=== PATIENT | female | born 1945 | race Caucasian/White ===

== ENCOUNTER → 2017-01-04 | Outpatient (CLI) | payer MEDICARE ==
--- NOTE | 2017-01-05 10:33 | MM ---
Reason for exam: screening (asymptomatic). Last mammogram was performed 1 year and 1 month ago. History: Patient is postmenopausal and is nulliparous. Family history of breast cancer in grandmother. Physical Findings: A clinical breast exam by your physician is recommended on an annual basis and results should be correlated with mammographic findings. MG Screening Mammo w CAD Bilateral CC and MLO view(s) were taken. Prior study comparison: November 27, 2015, bilateral MG screening mammo w CAD. January 03, 2014, bilateral digital screening mammo w/CAD. There are scattered fibroglandular densities. There is no discrete abnormality. ASSESSMENT: Negative, BI-RAD 1 RECOMMENDATION: Routine screening mammogram of both breasts in 1 year.
== END | disposition home or self-care (01) ==
LOC: RADMAMWWP 14:09
PROVIDERS: ATTEND Internal Medicine
DX: Z12.31 Encounter for screening mammogram for malignant neoplasm of breast (principal)

== ENCOUNTER → 2018-02-16 | Outpatient (CLI) | payer MEDICARE ==
--- NOTE | 2018-02-16 20:00 | ECHOF ---
Referral Reason:R01.1 murmur cardiac MEASUREMENTS -------- HEIGHT: 685.8 cm WEIGHT: 29.9 kg BP: IVSd: 0.9 cm (0.6 - 1.1) LVIDd: 4.5 cm (3.9 - 5.3) LVPWd: 1.1 cm (0.6 - 1.1) IVSs: 1.4 cm LVIDs: 2.8 cm LVPWs: 1.7 cm Ao Diam: 2.9 cm (2.0 - 3.7) AV Cusp: 2.1 cm (1.5 - 2.6) LA Diam: 3.9 cm (2.7 - 3.8) MV EXCURSION: 23.232 mm (> 18.000) MV EF SLOPE: 153 mm/s (70 - 150) EPSS: 0.7 cm MV E Andreas: 0.80 m/s MV DecT: 169 ms MV A Andreas: 0.74 m/s MV E/A Ratio: 1.08 AV maxP.30 mmHg AV meanP.41 mmHg RAP: 5.00 mmHg RVSP: 20.59 mmHg FINDINGS -------- Sinus rhythm. This was a technically difficult study with suboptimal views. The left ventricular size is normal. Left ventricular wall thickness is normal. Overall left vent ricular systolic function is normal with, an EF between 55 - 60 %. The right ventricle is normal in size and function. The left atrium is normal in size. The right atrium is normal in size. Aortic valve is trileaflet and is mildly thickened. The mitral valve leaflets are mildly thickened. There is trace mitral regurgitation. Mild tricuspid regurgitation present. There is no evidence of pulmonary hypertension. The right v entricular systolic pressure, as measured by Doppler, is 20.59mmHg. There is no pulmonic regurgitation present. The aortic root size is normal. Normal inferior vena cava with normal inspiratory collapse consistent with estimated right atrial pre ssure of 5 mmHg. There is no pericardial effusion. CONCLUSIONS -------- 1. Sinus rhythm. 2. This was a technically difficult study with suboptimal views. 3. The left ventricular size is normal. 4. Left ventricular wall thickness is normal. 5. Overall left ventricular systolic function is normal with, an EF between 55 - 60 %. 6. The left atrium is normal in size. 7. Aortic valve is trileaflet and is mildly thickened. 8. The mitral valve leaflets are mildly thickened. 9. There is trace mitral regurgitation. 10. Mild tricuspid regurgitation present. 11. There is no evidence of pulmonary hypertension. 12. There is no pulmonic regurgitation present. 13. The aortic root size is normal. 14. Normal inferior vena cava with normal inspiratory collapse consistent with estimated right atrial pressure of 5 mmHg. 15. There is no pericardial effusion. [employer] CON[employer]CT [employer]ENS: Patrica Black RDCS
== END | disposition home or self-care (01) ==
LOC: RADECHMAIN 11:21
PROVIDERS: ATTEND Internal Medicine
DX: I08.3 Combined rheumatic disorders of mitral, aortic and tricuspid valves (principal)
CPT/HCPCS: 93306

== ENCOUNTER 2019-02-05 16:10 | Inpatient (IN) | payer MEDICARE ==
--- NOTE | 2019-02-05 16:22 | ED ---
General Adult HPI - General Stated complaint: fall Time Seen by Provider: 02/05/19 16:12 Source: patient, EMS Mode of arrival: EMS Limitations: no limitations - History of Present Illness Initial comments: Dictation was produced using [employer] dictation software. please excuse any grammatical, word or spelling errors. Chief Complaint: 74-year-old female presents with left knee pain History of Present Illness: Patient is 74-year-old female she presents with left knee pain. At approximately 1 PM patient fell. She fell forward. She states she did hit her head. She called for her family members however nobody had enough strength to pick her up off the ground. EMS was called for lift assist. While patient was sitting in the chair she noted that her pain in her left knee began increasing. She has history of bilateral total knee replacements performed in 2008 at [facility]. Patient denies any headache or neck pain. Patient denies any other symptoms except the left knee pain. Denies any numbness and paresthesias. Patient states she was barely able to bear any weight on her left leg. The ROS documented in this emergency department record has been reviewed and confirmed by me. Those systems with pertinent positive or negative responses have been documented in the HPI. All other systems are other negative and/or noncontributory. PHYSICAL EXAM: General Impression: Alert and oriented x3, not in acute distress HEENT: Normocephalic atraumatic, extra-ocular movements intact, pupils equal and reactive to light bilaterally, mucous membranes moist. Cardiovascular: Heart regular rate and rhythm, S1&S2 audible, no murmurs, rubs or gallops Chest: Lungs clear to auscultation bilaterally, no rhonchi, no wheeze, no rales Abdomen: Bowel sounds present, abdomen soft, non-tender, non-distended, no organomegaly Musculoskeletal: Pulses present and equal in all extremities, no peripheral edema, slight ecchymoses over the left anterior knee Motor: no focal deficits noted Neurological: CN II-XII grossly intact, no focal motor or sensory deficits noted Skin: Intact with no visualized rashes Psych: Normal affect and mood ED course: 74-year-old female presents with left knee pain after fall. Patient states she did strike her head. Denies any LOC. Patient reports that the fall was mechanical. She states she slipped. Denies any blood thinners. Vital signs upon arrival are within acceptable limits. Laboratory evaluation obtained showing no acute processes. CT of the brain and lateral knee x-rays was obtained. CT is nonacute. Knee x-rays do not show any periprosthetic fractures. There is left-sided knee joint effusion. Patient given analgesia. Patient was assisted and attempted to walk over really able to bear any weight. Patient states she is not able to get into her house secondary to multiple steps to get to inside of her house. She does not have any other family member or friend to stay with. Patient will be admitted with orthopedic consultation. EKG interpretation: Ventricular rate 82, sinus rhythm,. Interval T12, QS 80, QTc 475. No LA prolongation, no QTC prolongation, no ST or T-wave changes noted. Overall, this EKG is unremarkable. - Related Data Allergies Allergy/AdvReac Type Severity Reaction Status Date / Time Penicillins Allergy Rash/Hives Verified 02/05/19 17:13 Review of Systems ROS Statement: Those systems with pertinent positive or pertinent negative responses have been documented in the HPI. ROS Other: All systems not noted in ROS Statement are negative. Past Medical History Past Medical History: GERD/Reflux, GI Bleed, Hypertension, Rheumatoid Arthritis (RA) History of Any Multi-Drug Resistant Organisms: None Reported Past Surgical History: Joint Replacement Additional Past Surgical History / Comment(s): viola knee Past Psychological History: No Psychological Hx Reported Smoking Status: Never smoker Past Alcohol Use History: None Reported Past Drug Use History: None Reported General Exam Limitations: no limitations Course Vital Signs 02/05/19 16:12 Temperature 97.0 F L Pulse Rate 84 Respiratory 16 Rate Blood Pressure 160/109 O2 Sat by Pulse 96 Oximetry Medical Decision Making - Lab Data Result diagrams: 02/05/19 16:30 02/05/19 16:30 Lab Results 02/05/19 02/05/19 02/05/19 Range/Units 16:30 16:30 16:30 WBC 9.5 (3.8-10.6) k/uL RBC 4.53 (3.80-5.40) m/uL Hgb 13.1 (11.4-16.0) gm/dL Hct 40.5 (34.0-46.0) % MCV 89.5 (80.0-100.0) fL MCH 29.0 (25.0-35.0) pg MCHC 32.4 (31.0-37.0) g/dL RDW 13.6 (11.5-15.5) % Plt Count 236 (150-450) k/uL Neutrophils % 72 % Lymphocytes % 17 % Monocytes % 7 % Eosinophils % 2 % Basophils % 1 % Neutrophils # 6.8 (1.3-7.7) k/uL Lymphocytes # 1.6 (1.0-4.8) k/uL Monocytes # 0.7 (0-1.0) k/uL Eosinophils # 0.2 (0-0.7) k/uL Basophils # 0.1 (0-0.2) k/uL PT 10.2 (9.0-12.0) sec INR 0.9 (<1.2) Sodium 141 (137-145) mmol/L Potassium 4.2 (3.5-5.1) mmol/L Chloride 105 (98-107) mmol/L Carbon Dioxide 29 (22-30) mmol/L Anion Gap 7 mmol/L BUN 18 H (7-17) mg/dL Creatinine 0.57 (0.52-1.04) mg/dL Est GFR (CKD-EPI)AfAm >90 (>60 ml/min/1.73 sqM) Est GFR (CKD-EPI)NonAf >90 (>60 ml/min/1.73 sqM) Glucose 102 H (74-99) mg/dL Calcium 9.7 (8.4-10.2) mg/dL Disposition Clinical Impression: Knee pain Disposition: ADMITTED IP TO THIS [facility] Condition: Good Referrals: Yajaira Frost MD [Primary Care Provider] - 1-2 days Decision Time: 17:49
[2019-02-05 16:53] LABS: Basophils # (A) 0.1 k/uL (0-0.2); Basophils % (A) 1 %; Eosinophils # (A) 0.2 k/uL (0-0.7); Eosinophils % (A) 2 %; HCT 40.5 % (34.0-46.0); HGB 13.1 gm/dL (11.4-16.0); Lymphocytes # (A) 1.6 k/uL (1.0-4.8); Lymphocytes % (A) 17 %; MCHC 32.4 g/dL (31.0-37.0); MCV 89.5 fL (80.0-100.0); Mean Platelet Volume 7.7; Monocytes # (A) 0.7 k/uL (0-1.0); Monocytes % (A) 7 %; Neutrophils # (A) 6.8 k/uL (1.3-7.7); Neutrophils % (A) 72 %; Platelet Count 236 k/uL (150-450); RBC 4.53 m/uL (3.80-5.40); RDW 13.6 % (11.5-15.5); WBC 9.5 k/uL (3.8-10.6)
[2019-02-05 16:55] LABS: Anion Gap 7 mmol/L; Blood Urea Nitrogen 18 mg/dL (7-17); Calcium 9.7 mg/dL (8.4-10.2); Carbon Dioxide 29 mmol/L (22-30); Chloride 105 mmol/L (98-107); Glucose 102 mg/dL (74-99); Potassium 4.2 mmol/L (3.5-5.1); Sodium 141 mmol/L (137-145)
[2019-02-05 17:03] LABS: INR 0.9 (<1.2); Prothrombin Time 10.2 sec (9.0-12.0)
--- NOTE | 2019-02-05 17:19 | CT ---
EXAMINATION TYPE: CT brain wo con DATE OF EXAM: 02/05/2019 COMPARISON: None HISTORY: Fall today with Right sided injury CT DLP: 1099.4 mGycm Automated exposure control for dose reduction was used. FINDINGS: There is some cerebral cortical atrophy. There is no mass effect nor midline shift. There is no sign of intracranial hemorrhage. The calvarium is intact. IMPRESSION: MILD ATROPHY. NO ACUTE INTRACRANIAL ABNORMALITY. RIGHT PARIETAL SCALP HEMATOMA NOTED.
--- NOTE | 2019-02-05 17:21 | XR ---
EXAMINATION TYPE: XR knee complete bilateral DATE OF EXAM: 02/05/2019 COMPARISON: NONE HISTORY: Knee pain TECHNIQUE: 3 views each knee FINDINGS: There are bilateral knee prosthesis. I see no fracture nor dislocation. Components appear i n anatomic position. There is left-sided knee joint effusion. IMPRESSION: Left-sided knee joint effusion. No fracture seen in both knees. Atherosclerotic vascular disease.
[2019-02-05] MEDS ORDERED: KETOROLAC 30 MG/ML 1 ML VIAL IVP STA (17:34)
[2019-02-05] MEDS ORDERED: ONDANSETRON 4 MG/2 ML VIAL IVP PRN (17:49)
[2019-02-05] MEDS ORDERED: NALOXONE 0.4 MG/ML 1 ML VIAL IV PRN (17:49)
[2019-02-05] MEDS ORDERED: HYDROcodone/APAP 5-325MG 1 EACH TAB PO PRN (18:49)
[2019-02-05] MEDS ORDERED: ALPRAZolam 0.25 MG TAB PO PRN (18:49)
[2019-02-05] MEDS ORDERED: HYDROmorphone 0.5 MG/0.5 ML SYRINGE IVP PRN (18:49)
--- NOTE | 2019-02-05 19:46 | XR ---
EXAMINATION TYPE: XR chest 1V portable DATE OF EXAM: 02/05/2019 COMPARISON: NONE HISTORY: CHF TECHNIQUE: Single frontal view of the chest is obtained. FINDINGS: There is no heart failure nor confluent pneumonic infiltrate. Costophrenic angles are ac r. IMPRESSION: No active cardiopulmonary disease.
--- NOTE | 2019-02-05 19:56 | HP ---
HISTORY AND PHYSICAL CHIEF COMPLAINT: Fall and left knee pain. HISTORY OF PRESENT ILLNESS: This 74-year-old woman with a past medical history of GERD, GI bleed, hypertension, rheumatoid arthritis, being followed by Dr. Frost in the outpatient setting had a fall. The patient trampled upon the carpet at home and the patient had a head injury also. The patient hit over the head. Hematoma is there. The patient also has significant left knee swelling and pain on movement also. X-ray showed possible effusion. Patient admitted to the hospital for further evaluation and treatment. Patient lives in an apartment with several steps apparently. There is no history of fever, rigors, or chills. No history of headache, loss of consciousness, seizures. PAST MEDICAL HISTORY: GERD, GI bleed, hypertension and rheumatoid arthritis. MEDICATIONS ARE: 1. Enalapril. 3. Tylenol p.r.n. ALLERGIES: PENICILLIN. FAMILY HISTORY: No history of heart disease or strokes in the family. SOCIAL HISTORY: No history of smoking, no history of alcohol. REVIEW OF SYSTEMS: ENT: No diminished vision. Otherwise as mentioned earlier. CARDIOVASCULAR: No angina. RESPIRATIONS: No cough. GI no nausea or vomiting. : No dysuria. ALLERGY/IMMUNOLOGY: No asthma, hayfever. MUSCULOSKELETAL: As mentioned earlier. HEMATOLOGY/ONCOLOGY: No history of anemia. ENDOCRINE: No history of diabetes or hypothyroidism. CONSTITUTIONAL: As mentioned earlier. DERMATOLOGY: Negative. RHEUMATOLOGY: Negative. PSYCHIATRY: As mentioned earlier. PHYSICAL EXAMINATION: GENERAL: Alert and oriented x3. VITAL SIGNS: Pulse is 78, blood pressure is 140/92, respiratory rate 18, temp 97 degrees, pulse ox 97% on room air. HEENT: Conjunctivae normal. NECK: No jugular venous distention. CARDIOVASCULAR: S1, S2 muffled. RESPIRATION: Breath sounds diminished in the bases. A few scattered rhonchi. No crackles. ABDOMEN: Soft, obese, nontender. LEGS: Significant pain and swelling on the left. Movements severely limited. Examination of the right head, right scalp hematoma present. Multiple excoriations also present. SKIN: Mentioned earlier. JOINTS: As mentioned earlier. NERVOUS SYSTEM: Diffusely weak. LAB: CBC within normal, sodium 140, potassium 4.2. ASSESSMENT: 1. Fall and left knee pain, with knee effusion, rule out fracture. 2. Gait dysfunction severe. 3. Right hematoma from the hematoma. 4. Gastrointestinal bleed. 5. Hypertension. 6. Rheumatoid arthritis. 7. Gastroesophageal reflux disease. 8. Super morbid obesity with 43.6 BMI. 9. History of bilateral knee joint replacements. RECOMMENDATIONS AND DISCUSSION: This 74-year-old woman who presented with multiple complex medical issues, we will monitor the patient closely, continue the current medications, management and recommend symptomatic treatment. Orthopedic evaluation. PT/OT evaluation, possible ECF rehab. The patient is extremely obese and has significant difficulty walking with a past medical history of knee replacements and the possibility of prosthetic fraction is ruled out. We will continue to monitor. Overall prognosis guarded. See orders for details. Further recommendations to follow. Discussed with the patient who understands and agrees. A copy of dictation being forwarded to Dr. Frost, who is the primary physician. MMNEO / RANDY: [id number] / MTDD
[2019-02-05 20:05] VITALS: BMI 43.5
[2019-02-05] MEDS: SODIUM CHLORIDE 0.9% 1,000 ML IV SCH (20:51)
[2019-02-05] MEDS: HEPARIN SODIUM,PORCINE 5,000 UNIT/ML 1 ML VIAL SQ SCH (20:57)
[2019-02-05 20:58] LABS: Appearance,Urine Clear (Clear); Bilirubin,Urine Negative (Negative); Blood,Urine Negative (Negative); Color,Urine Yellow; Glucose,Urine (UA) Negative (Negative); Ketones,Urine Negative (Negative); Leukocyte Esterase,Urine Negative (Negative); Nitrite,Urine Negative (Negative); Protein,Urine Negative (Negative); Specific Gravity,Urine 1.016 (1.001-1.035); Urobilinogen,Urine <2.0 mg/dL (<2.0)
[2019-02-05] MEDS: KETOROLAC 30 MG/ML 1 ML VIAL IVP PRN (22:32)
[2019-02-06] MEDS: LISINOPRIL 20 MG TAB PO SCH (08:19)
[2019-02-06] MEDS: HYDROCHLOROTHIAZIDE 25 MG TAB PO SCH (08:19)
[2019-02-06] MEDS: SODIUM CHLORIDE 0.9% 1,000 ML IV SCH (08:20)
[2019-02-06] MEDS: KETOROLAC 30 MG/ML 1 ML VIAL IVP PRN ×3 (08:20→22:21)
[2019-02-06] MEDS: HEPARIN SODIUM,PORCINE 5,000 UNIT/ML 1 ML VIAL SQ SCH ×2 (08:20→21:11)
[2019-02-06 09:54] LABS: Basophils # (A) 0.1 k/uL (0-0.2); Basophils % (A) 1 %; Eosinophils # (A) 0.2 k/uL (0-0.7); Eosinophils % (A) 3 %; HCT 37.6 % (34.0-46.0); HGB 12.1 gm/dL (11.4-16.0); Lymphocytes # (A) 1.4 k/uL (1.0-4.8); Lymphocytes % (A) 22 %; MCH 28.7 pg (25.0-35.0); MCHC 32.2 g/dL (31.0-37.0); MCV 89.2 fL (80.0-100.0); Mean Platelet Volume 7.8; Monocytes # (A) 0.6 k/uL (0-1.0); Monocytes % (A) 10 %; Neutrophils % (A) 63 %; Platelet Count 220 k/uL (150-450); RBC 4.22 m/uL (3.80-5.40); RDW 14.4 % (11.5-15.5); WBC 6.3 k/uL (3.8-10.6)
[2019-02-06 10:27] LABS: Anion Gap 7 mmol/L; Blood Urea Nitrogen 18 mg/dL (7-17); Calcium 9.4 mg/dL (8.4-10.2); Carbon Dioxide 30 mmol/L (22-30); Chloride 105 mmol/L (98-107); Glucose 94 mg/dL (74-99); Potassium 3.9 mmol/L (3.5-5.1); Sodium 142 mmol/L (137-145)
--- NOTE | 2019-02-06 10:45 | CT ---
EXAMINATION TYPE: CT knee LT wo con DATE OF EXAM: 02/06/2019 COMPARISON: X-ray 02/05/2019 HISTORY: Lt knee pain following fall CT DLP: 173 mGycm Automated exposure control for dose reduction was used. FINDINGS: Severe metallic artifact results virtually nondiagnostic exam. There does appear to be a suprapatella r bursal fluid collection. Vascular calcifications are seen and there is soft tissue edema anteriorly . Visualized portions of the osseous structures outside the field of artifact from the prostheses kamini ear intact. IMPRESSION: VIRTUALLY NONDIAGNOSTIC EXAM SECONDARY TO SEVERE METALLIC ARTIFACT. THERE IS A SUPRAPATELLAR BURSAL F LUID COLLECTION AND SOFT TISSUE EDEMA.
--- NOTE | 2019-02-06 11:40 | PN ---
PROGRESS NOTE DATE OF SERVICE: 02/06/2019 This 74-year-old woman was admitted after a fall and left knee pain also had enough left knee effusion. The patient will be closely monitored. Orthopedics recommending a knee CAT scan. No chest pain. No palpitations. No fever. The knee CAT scan showed nondiagnostic exam secondary to severe metallic artifact, suprapatellar bursal fluid collection was noted. PHYSICAL EXAM: Alert and oriented x3. Pulse 91, blood pressure 130/70, respiration 18, temperature 97.2, pulse ox 97% on room air. HEENT: Conjunctivae normal. NECK: No jugular venous distension. CARDIOVASCULAR SYSTEM: S1, S2, muffled. RESPIRATION: Breath sounds diminished at the bases, no rhonchi, no crackles. ABDOMEN: Soft. LEGS: Status post left knee effusion and tenderness. NERVOUS SYSTEM: No focal deficits. Gait dysfunction present. LAB STUDIES: WBC is 6.8, hemoglobin is 12.1. ASSESSMENT: 1. Fall and left knee pain with a knee effusion, rule out fracture. 2. Rule out prosthetic fracture. 3. Gait dysfunction, severe. 4. Right scalp hematoma from fall. 5. History of gastrointestinal bleed. 6. Hypertension. 7. Rheumatoid arthritis. 8. Gastroesophageal reflux disease. 9. Gastrointestinal bleed. 10.Morbid obesity with 43.6 body mass index. 11.History of bilateral knee joint replacements and degenerative joint disease. RECOMMENDATION: Recommend to continue current management and symptomatic treatment; otherwise, at this time I recommend to follow closely with Orthopedic Surgery. Otherwise, will continue to monitor. PT, OT evaluation and the patient might need ECF rehab. The patient is unable to negotiate steps at home and the patient is also complaining of severe pain and gait dysfunction. Patient is unable to move and bend the knees currently and continue to monitor. Orthopedic recommendations being sought at this time. Guarded prognosis. Further recommendations to follow. MMODL / IJN: [id number] /
--- NOTE | 2019-02-06 15:22 | P.CNOR ---
History of Present Illness - [facility] Consult date: 02/06/19 History of present illness: This patient is a 74- year old female with a past medical history of bilateral total knee arthoplasty by a surgeon in [place] in 2005, hypertension, GERD, and rheumatoid arthritis that presents to [facility] ED yesterday 02/05/19 after a fall at home. The patients states it was a mechanical fall, that she tripped over her slipper. The patient states she landed onto her left knee and experienced immediate pain, and was unable to get off the ground. Her family tried to assist her, although they were unable to lift her off the ground, therefore they called EMS. The patient was unable to bear weight on the left lower extremity in the ED due to pain, therefore she was admitted to internal medicine with a consult placed to orthopedics for evaluation of the patient's left knee. At the time of my exam, the patient states that her knee feels better than it did yesterday, she states she worked with therapy this morning and was able to place a small amount of weight on the knee without pain. She states prior to her fall, she had no issues with her knee replacements. She ambulates with a cane at baseline. She denies pain or injury to any other area of the body. Patient denies additional complaints or concerns. Patient also seen by Dr. Galvez. Past Medical History Past Medical History: GERD/Reflux, GI Bleed, Hypertension, Rheumatoid Arthritis (RA) History of Any Multi-Drug Resistant Organisms: None Reported Past Surgical History: Joint Replacement Additional Past Surgical History / Comment(s): viola knee, cataract sx with lens, bleeding ulcer sx Past Anesthesia/Blood Transfusion Reactions: No Reported Reaction Past Psychological History: No Psychological Hx Reported Smoking Status: Never smoker Past Alcohol Use History: None Reported Past Drug Use History: None Reported - Past Family History Mother Additional Family Medical History / Comment(s): a. fib, hip replaced Medications and Allergies Home Medications Medication Instructions Recorded Confirmed Type Acetaminophen Tab [Tylenol Tab] 500 - 1,000 mg PO Q4H PRN 02/05/19 02/05/19 History Enalapril/Hydrochlorothiazide 1 tab PO DAILY 02/05/19 02/05/19 History [Enalapril-Hctz 10-25 mg Tablet] Allergies Allergy/AdvReac Type Severity Reaction Status Date / Time Penicillins Allergy Rash/Hives Verified 02/05/19 17:13 Physical Examination On examination, the patient is sitting up in bed in no acute distress. She is alert and orientated x3. Her breathing appears non-labored. Small laceration noted to the patient's chin, otherwise her head appears normocephalic and atraumatic. On inspection of the patient's left knee, there is a healed incision over the anterior knee. There is moderate swelling of the knee. There is no erythema, warmth, open wounds, or lacerations. There is tenderness to palpation of the anterior and medial knee. Patient is able to perform a straight leg raise. There is pain with flexion of the knee. There is no pain with log roll. The left lower extremity is warm and well-perfused, with brisk capillary refill distally. Neurovascular is intact of the left lower extremity. The left calf is soft and nontender. Results CT scan left knee 02/06/19: No acute fracture or dislocations, components appear in anatomic position. Left knee x-ray 02/05/19: No acute fracture or dislocations, components appear in anatomic position. - Labs Labs: Abnormal Lab Results - Last 24 Hours (Table) 02/05/19 Range/Units 16:30 BUN 18 H (7-17) mg/dL Glucose 102 H (74-99) mg/dL H & H 02/05/19 Range/Units 16:30 Hgb 13.1 (11.4-16.0) gm/dL Hct 40.5 (34.0-46.0) % Coagulation 02/05/19 Range/Units 16:30 INR 0.9 (<1.2) Result Diagrams: 02/06/19 09:12 02/06/19 09:12 Assessment and Plan Assessment: Left knee pain s/p fall at home Plan: - There is no surgical intervention planned at this time. I explained to the patient that her implants are in anatomic position and there are no acute fractures seen on x-ray or CT scan of her knee. I recommended we observe her knee pain at this time. - I recommended she continue with physical therapy for gait and balance training. - Ice and elevation of the left knee for swelling and pain control. - Pain management per primary team. - If the patient's pain continues, I recommended she follow-up with Dr. Jose Heithoff on an outpatient basis. - We will continue to make recommendations as needed. Patient discussed with Dr. Galvez.
[2019-02-07] MEDS: SODIUM CHLORIDE 0.9% 1,000 ML IV SCH ×2 (00:27→14:04)
[2019-02-07] MEDS: ACETAMINOPHEN TAB 500 MG TAB PO PRN ×2 (04:56→21:51)
[2019-02-07] MEDS: KETOROLAC 30 MG/ML 1 ML VIAL IVP PRN ×3 (06:06→21:54)
[2019-02-07] MEDS: LISINOPRIL 20 MG TAB PO SCH (09:31)
[2019-02-07] MEDS: HYDROCHLOROTHIAZIDE 25 MG TAB PO SCH (09:32)
[2019-02-07] MEDS: HEPARIN SODIUM,PORCINE 5,000 UNIT/ML 1 ML VIAL SQ SCH ×2 (09:32→21:51)
[2019-02-07 09:40] LABS: Basophils % (A) 1 %; Eosinophils # (A) 0.3 k/uL (0-0.7); Eosinophils % (A) 4 %; Lymphocytes # (A) 1.4 k/uL (1.0-4.8); Lymphocytes % (A) 20 %; MCH 28.7 pg (25.0-35.0); MCHC 31.7 g/dL (31.0-37.0); MCV 90.5 fL (80.0-100.0); Mean Platelet Volume 7.9; Monocytes # (A) 0.4 k/uL (0-1.0); Monocytes % (A) 6 %; Neutrophils # (A) 4.9 k/uL (1.3-7.7); Neutrophils % (A) 69 %; Platelet Count 214 k/uL (150-450); RDW 13.5 % (11.5-15.5); WBC 7.2 k/uL (3.8-10.6)
[2019-02-07 09:48] LABS: Anion Gap 7 mmol/L; Blood Urea Nitrogen 24 mg/dL (7-17); Calcium 9.2 mg/dL (8.4-10.2); Carbon Dioxide 27 mmol/L (22-30); Chloride 108 mmol/L (98-107); Glucose 128 mg/dL (74-99); Potassium 4.1 mmol/L (3.5-5.1); Sodium 142 mmol/L (137-145)
--- NOTE | 2019-02-07 12:05 | P.PN ---
Subjective Progress Note Date: 02/07/19 This patient is a 74- year old female with a past medical history of bilateral total knee arthoplasty by a surgeon in [place] in 2005, hypertension, GERD, and rheumatoid arthritis that presents to [facility] ED yesterday 02/05/19 after a fall at home. The patients states it was a mechanical fall, that she tripped over her slipper. The patient states she landed onto her left knee and experienced immediate pain, and was unable to get off the ground. Her family tried to assist her, although they were unable to lift her off the ground, therefore they called EMS. The patient was unable to bear weight on the left lower extremity in the ED due to pain, therefore she was admitted to internal medicine with a consult placed to orthopedics for evaluation of the patient's left knee. At the time of my exam, the patient states that her knee feels better than it did yesterday, she states she worked with therapy this morning and was able to place a small amount of weight on the knee without pain. She states prior to her fall, she had no issues with her knee replacements. She ambulates with a cane at baseline. She denies pain or injury to any other area of the body. Patient denies additional complaints or concerns. Patient also seen by Dr. Galvez. 02/07/19: Patient states her knee pain has improved since yesterday. She has been able to bear weight today and is able to flex and extend the knee without pain. The patient denies additional complaints at the time of my exam. Objective - Vital Signs Vital signs: Vital Signs Temp 98.2 F 02/07/19 07:30 Pulse 64 02/07/19 07:30 Resp 16 02/07/19 07:30 BP 104/69 02/07/19 07:30 Pulse Ox 98 02/07/19 07:30 Intake & Output 02/06/19 02/07/19 02/07/19 18:59 06:59 18:59 Other: Voiding Method Bedpan Bedpan Bedpan # Voids 4 2 # Bowel Movements 1 - Exam On examination, the patient is sitting up in the chair in no apparent distress. She is alert and orientated x3. Small laceration noted to the patient's chin, otherwise her head appears normocephalic and atraumatic. On inspection of the patient's left knee, there is a healed incision over the anterior knee. There is moderate swelling of the knee. There is no erythema, warmth, open wounds, or lacerations. There is mild tenderness to palpation of the medial knee. Patient is able to perform a straight leg raise. There is no pain with PROM of the knee. There is no pain with log roll. The left lower extremity is warm and well- perfused, with brisk capillary refill distally. Neurovascular is intact of the left lower extremity. The left calf is soft and nontender. - Labs CBC & Chem 7: 02/07/19 08:30 02/07/19 08:30 Labs: Abnormal Lab Results - Last 24 Hours (Table) 02/07/19 Range/Units 08:30 Chloride 108 H (98-107) mmol/L BUN 24 H (7-17) mg/dL Glucose 128 H (74-99) mg/dL Assessment and Plan Assessment: Left knee pain s/p fall at home Plan: - There is no surgical intervention planned at this time. I explained to the patient that her implants are in anatomic position and there are no acute fractures seen on x-ray or CT scan of her knee. I recommended we observe her knee pain at this time. - I recommended she continue with physical therapy for gait and balance training. - Ice and elevation of the left knee for swelling and pain control. - Pain management per primary team. - If the patient's pain continues, I recommended she follow-up with Dr. Jose Patel on an outpatient basis. - Orthopedics will be signing off this patient. We will continue to make recommendations as needed. Patient discussed with Dr. Galvez.
--- NOTE | 2019-02-07 20:16 | PN ---
PROGRESS NOTE DATE OF SERVICE: 02/07/2019 This 74-year-old woman was admitted with a significant fall and left knee pain. She is still unable to walk without any support. The patient has significant pain at this time. Orthopedics is evaluating the patient. Fracture is unlikely, according to them. PT/OT is evaluating the patient for possible ECF rehab at this time. No chest pain. No palpitations. Patient has super morbid obesity with a BMI of 43.6. PHYSICAL EXAMINATION: Alert and oriented x3. Pulse is 84, blood pressure 122/70, respiration 18, temperature 96.8, pulse ox 97% on room air. HEENT: Conjunctivae normal. Oral mucosa moist. NECK: No jugular venous distention. No carotid bruit. No lymph node enlargement. CARDIOVASCULAR SYSTEM: S1, S2 muffled. RESPIRATORY SYSTEM: Breath sounds diminished at the bases. A few scattered rhonchi and crackles. ABDOMEN: Soft, non-tender. LEGS: Significant pain and swelling of the left knee present. Minimal effusion also present. Movements are severely limited and painful. NERVOUS SYSTEM: Higher functions as mentioned earlier. Moves all 4 limbs. No focal motor or sensory deficit. LYMPHATICS: No lymph node palpable in neck, axillae or groin. JOINTS: No active deforming arthropathy. LABS: WBC 7.2, hemoglobin 12, and sodium 142, potassium 4.2. ASSESSMENT: 1. Fall and left knee pain with knee effusion with possible contusion. Fracture dislocation unlikely per Orthopedics. 2. Gait dysfunction, severe. 3. Right scalp hematoma from fall. 4. History of gastrointestinal bleed. 5. Hypertension. 6. Gait dysfunction. 7. Rheumatoid arthritis. 8. gastroesophageal reflux disease. 9. History of gastrointestinal bleed. 10.History of morbid obesity with 43.6 body mass index. 11.History of bilateral knee joint replacements and degenerative joint disease. 12.FULL CODE. RECOMMENDATIONS AND DISCUSSION: In this 74-year-old woman who presented with multiple complex medical issues, we will monitor the patient closely, continue the current management, continue with symptomatic treatment. Continue the pain management. PT/OT evaluation, possible ECF rehab. Continue the rest of medical treatment. Prognosis is extremely guarded because of multiple complex medical issues. Further recommendations to follow. MMODL / IJN: [id number] /
[2019-02-08] MEDS: SODIUM CHLORIDE 0.9% 1,000 ML IV SCH ×2 (02:58→13:07)
[2019-02-08] MEDS: LISINOPRIL 20 MG TAB PO SCH (07:24)
[2019-02-08] MEDS: HYDROCHLOROTHIAZIDE 25 MG TAB PO SCH (07:24)
[2019-02-08] MEDS: HEPARIN SODIUM,PORCINE 5,000 UNIT/ML 1 ML VIAL SQ SCH (07:25)
[2019-02-08] MEDS: ACETAMINOPHEN TAB 500 MG TAB PO PRN (07:28)
[2019-02-08] MEDS: KETOROLAC 30 MG/ML 1 ML VIAL IVP PRN (07:29)
[2019-02-08 10:04] LABS: Basophils % (A) 1 %; Eosinophils # (A) 0.3 k/uL (0-0.7); Eosinophils % (A) 4 %; HCT 35.7 % (34.0-46.0); HGB 11.3 gm/dL (11.4-16.0); Lymphocytes # (A) 1.5 k/uL (1.0-4.8); Lymphocytes % (A) 26 %; MCH 28.5 pg (25.0-35.0); MCHC 31.7 g/dL (31.0-37.0); MCV 89.9 fL (80.0-100.0); Mean Platelet Volume 7.7; Monocytes # (A) 0.5 k/uL (0-1.0); Monocytes % (A) 8 %; Neutrophils # (A) 3.4 k/uL (1.3-7.7); Neutrophils % (A) 59 %; Platelet Count 219 k/uL (150-450); RBC 3.97 m/uL (3.80-5.40); RDW 13.5 % (11.5-15.5); WBC 5.8 k/uL (3.8-10.6)
[2019-02-08 10:15] LABS: Anion Gap 4 mmol/L; Blood Urea Nitrogen 23 mg/dL (7-17); Carbon Dioxide 30 mmol/L (22-30); Chloride 108 mmol/L (98-107); Glucose 90 mg/dL (74-99); Potassium 4.3 mmol/L (3.5-5.1); Sodium 142 mmol/L (137-145)
--- NOTE | 2019-02-08 10:32 | P.DS ---
Providers Date of admission: 02/08/19 08:52 Attending physician: Renata Hoffmann Consults: 02/05/19 17:50 Consult Physician Routine Consulting Provider: Sai Galvez Consult Reason/Comments: knee pain Do you want consulting provider notified?: Yes Primary care physician: Yajaira Frost [facility] Course: Final diagnoses Fall and left knee pain with the knee effusion with a possible contusion. No fracture dislocation Auroto. Gait dysfunction severe Right scalp hematoma from fall History GI bleed Hypertension Gait dysfunction Rheumatoid arthritis GERD History GI bleed History morbid obesity with a BMI 43.6 History of bilateral knee joint replacements and DJD Full code This had disposition The patient be discharged in a stable condition with guarded prognosis to ECF total time taken 35 minutes. Orthopedics.clared the patient for discharge. History of present illness This 74-year-old woman with a past medical history multiple medical problems was admitted with a fall and left knee pain. Minimal Knee effusion was noted with possibly some contusion. Orthopedics evaluated the patient ruled out dislocation or fracture. Patient was treated symptomatically. PTOT was evaluated. Patient had significant pain initially with inability to even to bend the knees. Patient be discharged in a stable condition with a guarded prognosis to ECF for further intervention treatment. On exam vitals are stable. Cardio S1 and S2 normal. Respirator system few scattered rhonchi. Abdomen soft nontender. Nervous system system no focal deficit. Left knee tenderness and painful movements present. Swelling also present with a contusion. Please refer to the medication reconciliation sheet for Medications Patient Condition at Discharge: Good Plan - Discharge Summary Discharge Rx Participant: No New Discharge Prescriptions: No Action Acetaminophen Tab [Tylenol Tab] 500 - 1,000 mg PO Q4H PRN PRN Reason: Pain Enalapril/Hydrochlorothiazide [Enalapril-Hctz 10-25 mg Tablet] 1 tab PO DAILY Discharge Medication List Acetaminophen Tab [Tylenol Tab] 500 - 1,000 mg PO Q4H PRN 02/05/19 [History] Enalapril/Hydrochlorothiazide [Enalapril-Hctz 10-25 mg Tablet] 1 tab PO DAILY 02/05/19 [History] Follow up Appointment(s)/Referral(s): Yajaira Frost MD [Primary Care Provider] - 1-2 days Jose Patel DO [Doctor of Osteopathic Medicine] - As Needed
[2019-02-08 14:35] VITALS: BP 121/56; PULSE 93; RESP 16; TEMP 99
== END 2019-02-08 17:19 | DRG 565 ==
LOC: EC 16:10 → 4MS4W 17:50 → OBSVTOIN 02-08 08:52
PROVIDERS: ADMIT Hospitalist; ATTEND Hospitalist
DX: M25.462 Effusion, left knee (principal); Z68.41 Body mass index [BMI] 40.0-44.9, adult; E66.01 Morbid (severe) obesity due to excess calories; M06.9 Rheumatoid arthritis, unspecified; S01.81XA Laceration without foreign body of other part of head, initial encounter; S00.03XA Contusion of scalp, initial encounter; I10 Essential (primary) hypertension; S80.02XA Contusion of left knee, initial encounter; R26.2 Difficulty in walking, not elsewhere classified; K21.9 Gastro-esophageal reflux disease without esophagitis; M19.90 Unspecified osteoarthritis, unspecified site; Z79.899 Other long term (current) drug therapy; Z96.653 Presence of artificial knee joint, bilateral; Z87.19 Personal history of other diseases of the digestive system; W01.0XXA Fall on same level from slipping, tripping and stumbling without subsequent striking against object, initial encounter; Y92.009 Unspecified place in unspecified non-institutional (private) residence as the place of occurrence of the external cause; Z98.42 Cataract extraction status, left eye; Z98.41 Cataract extraction status, right eye; Z96.1 Presence of intraocular lens; Z88.0 Allergy status to penicillin; Z82.49 Family history of ischemic heart disease and other diseases of the circulatory system; Z82.61 Family history of arthritis
CPT/HCPCS: 36415; 70450; 71045; 80048; 81003; 85025; 85610; 96374; 99285

== ENCOUNTER 2020-03-18 01:37 | Inpatient (IN) | payer MEDICARE ==
[2020-03-18] MEDS ORDERED: SODIUM CHLORIDE 0.9% 500 ML 500 ML IV STA (02:17)
[2020-03-18] MEDS ORDERED: MORPHINE SULFATE 4 MG/ML SYRINGE IV STA (02:17)
[2020-03-18] MEDS ORDERED: SODIUM CHLORIDE 0.9% 1,000 ML IV STA (02:17)
[2020-03-18] MEDS: ONDANSETRON 4 MG/2 ML VIAL IVP STA ×2 (02:24→10:26)
[2020-03-18 02:31] LABS: Basophils # (A) 0.1 k/uL (0-0.2); Basophils % (A) 1 %; Eosinophils # (A) 0.1 k/uL (0-0.7); Eosinophils % (A) 1 %; HCT 42.6 % (34.0-46.0); HGB 13.7 gm/dL (11.4-16.0); Lymphocytes # (A) 1.5 k/uL (1.0-4.8); Lymphocytes % (A) 14 %; MCH 28.5 pg (25.0-35.0); MCHC 32.1 g/dL (31.0-37.0); Mean Platelet Volume 8.8; Monocytes # (A) 0.6 k/uL (0-1.0); Monocytes % (A) 6 %; Neutrophils % (A) 78 %; Platelet Count 230 k/uL (150-450); RBC 4.79 m/uL (3.80-5.40); WBC 10.3 k/uL (3.8-10.6)
--- NOTE | 2020-03-18 02:34 | ED ---
Abdominal Pain HPI - General Chief Complaint: Abdominal Pain Stated Complaint: Abdominal Pain Time Seen by Provider: 03/18/20 01:51 Source: EMS Mode of arrival: EMS Limitations: no limitations - Related Data Home Medications Medication Instructions Recorded Confirmed Acetaminophen Tab [Tylenol] 500 - 1,000 mg PO Q4H PRN 02/05/19 02/05/19 Enalapril/Hydrochlorothiazide 1 tab PO DAILY 02/05/19 02/05/19 [Enalapril/Hydrochlorothiazide 10-25 mg Tablet] Previous Rx's Medication Instructions Recorded HYDROcodone/APAP 5-325MG [[place] 1 each PO Q6HR PRN #9 tab 02/08/19 5-325] Heparin Sodium,Porcine [Heparin 5,000 unit SQ Q12HR vial 02/08/19 Sodium] Allergies Allergy/AdvReac Type Severity Reaction Status Date / Time amoxicillin Allergy Rash/Hives Verified 03/18/20 01:51 Penicillins Allergy Rash/Hives Verified 03/18/20 01:46 Review of Systems ROS Statement: Those systems with pertinent positive or pertinent negative responses have been documented in the HPI. ROS Other: All systems not noted in ROS Statement are negative. Past Medical History Past Medical History: GERD/Reflux, GI Bleed, Hypertension, Rheumatoid Arthritis (RA) Additional Past Medical History / Comment(s): hernia History of Any Multi-Drug Resistant Organisms: None Reported Past Surgical History: Joint Replacement Additional Past Surgical History / Comment(s): viola knee, cataract sx with lens, bleeding ulcer sx Past Anesthesia/Blood Transfusion Reactions: No Reported Reaction Past Psychological History: No Psychological Hx Reported Smoking Status: Never smoker Past Alcohol Use History: None Reported Past Drug Use History: None Reported - Past Family History Mother Additional Family Medical History / Comment(s): a. fib, hip replaced General Exam Limitations: no limitations Course Vital Signs 03/18/20 01:43 Temperature 98.3 F Pulse Rate 57 L Respiratory 20 Rate Blood Pressure 174/89 O2 Sat by Pulse 96 Oximetry Medical Decision Making - Lab Data Result diagrams: 03/18/20 01:52 03/18/20 01:52 Lab Results 03/18/20 03/18/20 03/18/20 Range/Units 01:52 01:52 01:52 WBC 10.3 (3.8-10.6) k/uL RBC 4.79 (3.80-5.40) m/uL Hgb 13.7 (11.4-16.0) gm/dL Hct 42.6 (34.0-46.0) % MCV 89.0 (80.0-100.0) fL MCH 28.5 (25.0-35.0) pg MCHC 32.1 (31.0-37.0) g/dL RDW 13.0 (11.5-15.5) % Plt Count 230 (150-450) k/uL Neutrophils % 78 % Lymphocytes % 14 % Monocytes % 6 % Eosinophils % 1 % Basophils % 1 % Neutrophils # 8.0 H (1.3-7.7) k/uL Lymphocytes # 1.5 (1.0-4.8) k/uL Monocytes # 0.6 (0-1.0) k/uL Eosinophils # 0.1 (0-0.7) k/uL Basophils # 0.1 (0-0.2) k/uL Sodium 136 L (137-145) mmol/L Potassium 3.7 (3.5-5.1) mmol/L Chloride 104 (98-107) mmol/L Carbon Dioxide 22 (22-30) mmol/L Anion Gap 10 mmol/L BUN 21 H (7-17) mg/dL Creatinine 0.62 (0.52-1.04) mg/dL Est GFR (CKD-EPI)AfAm >90 (>60 ml/min/1.73 sqM) Est GFR (CKD-EPI)NonAf 89 (>60 ml/min/1.73 sqM) Glucose 132 H (74-99) mg/dL Plasma Lactic Acid [place] 1.5 (0.7-2.0) mmol/L Calcium 9.4 (8.4-10.2) mg/dL Total Bilirubin 0.7 (0.2-1.3) mg/dL AST 23 (14-36) U/L ALT 10 (4-34) U/L Alkaline Phosphatase 50 (38-126) U/L Total Protein 7.0 (6.3-8.2) g/dL Albumin 4.1 (3.5-5.0) g/dL Amylase 48 (30-110) U/L Lipase 59 (23-300) U/L - EKG Data -: EKG Interpreted by Me (EKG is sinus rhythm rate 65. PA 194 QRS 94 QTc 457) Disposition Clinical Impression: Abdominal pain, Ventral hernia, Abdominal wall hernia, SBO (small bowel obstruction) Disposition: ADMITTED IP TO THIS HOSP Condition: Fair Is patient prescribed a controlled substance at d/c from ED?: No Referrals: Yajaira Frost MD [Primary Care Provider] - 1-2 days
[2020-03-18 02:40] LABS: ALT 10 U/L (4-34); AST 23 U/L (14-36); African American GFR (CKD) >90 (>60 ml/min/1.73 sqM); Albumin 4.1 g/dL (3.5-5.0); Alkaline Phosphatase 50 U/L (38-126); Amylase 48 U/L (30-110); Anion Gap 10 mmol/L; Blood Urea Nitrogen 21 mg/dL (7-17); Calcium 9.4 mg/dL (8.4-10.2); Carbon Dioxide 22 mmol/L (22-30); Chloride 104 mmol/L (98-107); Glucose 132 mg/dL (74-99); Non-African American GFR(CKD) 89 (>60 ml/min/1.73 sqM); Potassium 3.7 mmol/L (3.5-5.1); Sodium 136 mmol/L (137-145); Total Bilirubin 0.7 mg/dL (0.2-1.3)
--- NOTE | 2020-03-18 03:38 | CT ---
EXAMINATION TYPE: CT angio chest DATE OF EXAM: 03/18/2020 COMPARISON: None HISTORY: Chest Pain, R/O PE CT DLP: 883.70 mGycm Automated exposure control for dose reduction was used. CONTRAST: Performed with IV Contrast, patient injected with 100 mL of Isovue 370. There are 3-D post processed images. The lungs are clear of consolidation. There is no pleural effusion. There is minimal subsegmental ate lectasis at the left lung base. There is small hiatal hernia. There are calcified large gallstones. T here is epigastric ventral hernia that contains bowel. This hernia does not completely evaluated on t hese images. There is no pericardial effusion. There is no mediastinal adenopathy. There are no hilar masses. Thor acic aorta is intact. There is no aneurysm or dissection. There is normal contrast opacification of the pulmonary arteries. There are no filling defects. Thoracic vertebra have normal alignment. There is no compression fracture. Bony thorax is intact. IMPRESSION: No evidence of pulmonary embolism.
--- NOTE | 2020-03-18 03:50 | CT ---
EXAMINATION TYPE: CT abdomen pelvis w con DATE OF EXAM: 03/18/2020 COMPARISON: None HISTORY: Abd Pain CT DLP: 2306.70 mGycm Automated exposure control for dose reduction was used. CONTRAST: Performed with IV Contrast, patient injected with 100 mL of Isovue 370. The lung bases are clear of consolidation. Liver shows no focal defect. There are large calcified gal lstones. Spleen is intact. Stomach is intact. There is epigastric ventral hernia that contains transv erse colon and anterior wall of the stomach. There is also some dilated fluid-filled loops of small b owel within the abdomen and also in a large second ventral hernia more inferior that is probably umbi lical. There is also omental fat. There is no evidence of pancreatic mass. Bile ducts are not dilated . There is no adrenal mass. Kidneys show satisfactory contrast opacification. There is no hydronephrosi s. Delayed images show normal renal excretion. There is no retroperitoneal adenopathy. There are sigm oid diverticula. There is no evidence of diverticulitis. Uterus is anteverted. There is no free fluid in the pelvis. Bladder distends smoothly. There is no inguinal hernia. The lower anterior abdominal wall ventral hernia which contains dilated small bowel appears to have t ransition point within the hernia on axial image 63. Small bowel is dilated up to 3.7 cm. The lower a bdominal hernia containing cecum and normal-appearing appendix. Lumbar vertebra have fairly normal alignment. There is multilevel spondylotic changes. There is no co mpression fracture. There is bilateral L5 spondylolysis with a mild first-degree L5-S1 spondylolisthe sis. The bony pelvis is intact. There is 8.5 cm diameter mixed density rounded mass in the pelvis in the right adnexal region. This a ppears to have a fat fluid level. The fluid has high attenuation and could be hemorrhage. IMPRESSION: Incarcerated upper and lower abdominal wall ventral hernias. Normal appendix. Mechanical small bowel obstruction. Transition point could be within the lower hernia. There is sigmoid diverticulosis without diverticulitis. Complex large pelvic mass on the right side could be a dermoid tumor with hemorrhage.
[2020-03-18] MEDS ORDERED: PANTOPRAZOLE 40 MG/10 ML VIAL IVP STA (03:56)
[2020-03-18] MEDS ORDERED: ONDANSETRON 4 MG/2 ML VIAL IVP PRN (03:56)
[2020-03-18] MEDS ORDERED: HYDROmorphone 1 MG/ML 1 ML SYRINGE IVP STA (03:56)
[2020-03-18 04:06] LABS: Appearance,Urine Clear (Clear); Bacteria,Urine Occasional /hpf; Bilirubin,Urine Negative (Negative); Blood,Urine Negative (Negative); Color,Urine Yellow; Glucose,Urine (UA) Negative (Negative); Ketones,Urine 1+ (Negative); Leukocyte Esterase,Urine Small (Negative); Mucus,Urine Rare /hpf; Nitrite,Urine Positive (Negative); PH, Urine 7.5 (5.0-8.0); Protein,Urine Trace (Negative); RBC,Urine 1 /hpf (0-5); Squamous Epithelial Cell,Urine 1 /hpf (0-4); Urobilinogen,Urine <2.0 mg/dL (<2.0); WBC,Urine 5 /hpf (0-5)
--- NOTE | 2020-03-18 05:29 | XR ---
EXAMINATION TYPE: XR KUB portable DATE OF EXAM: 03/18/2020 COMPARISON: NONE HISTORY: NG tube placement TECHNIQUE: 2 views supine FINDINGS: There is nasogastric tube with the tip in the distal stomach. There is contrast in the kidn eys and ureters and urinary bladder. Bowel gas pattern is nonacute. There is no sign of free air. IMPRESSION: NG tube is in good position in the distal stomach.
[2020-03-18] MEDS: PANTOPRAZOLE 40 MG/10 ML VIAL IVP SCH (08:52)
[2020-03-18] MEDS: LACTATED RINGERS 1,000 ML IV SCH ×5 (08:54→17:28)
[2020-03-18] MEDS: HYDROmorphone 1 MG/ML 1 ML SYRINGE IVP PRN (09:07)
[2020-03-18] MEDS: ENOXAPARIN 40 MG/0.4 ML SYRINGE SQ SCH (09:07)
--- NOTE | 2020-03-18 10:02 | P.GSHP ---
History of Present Illness H&P Date: 03/18/20 Chief Complaint: Incarcerated incisional hernia Cyst 75-year-old female with a chronic history of incarcerated incisional hernia. Patient will be small bowel obstruction. Patient previous exposure laparotomy approximately 20 years ago she has developed incisional hernias. Patient has pain in her lower incisional hernia Past Medical History Past Medical History: GERD/Reflux, GI Bleed, Hypertension, Rheumatoid Arthritis (RA) Additional Past Medical History / Comment(s): hernia History of Any Multi-Drug Resistant Organisms: None Reported Past Surgical History: Joint Replacement Additional Past Surgical History / Comment(s): viola knee, cataract sx with lens, bleeding ulcer sx Past Anesthesia/Blood Transfusion Reactions: No Reported Reaction Past Psychological History: No Psychological Hx Reported Smoking Status: Never smoker Past Alcohol Use History: None Reported Past Drug Use History: None Reported - Past Family History Mother Additional Family Medical History / Comment(s): a. fib, hip replaced Medications and Allergies Home Medications Medication Instructions Recorded Confirmed Type Acetaminophen Tab [Tylenol] 1,000 mg PO Q6H PRN 02/05/19 03/18/20 History Enalapril/Hydrochlorothiazide 1 tab PO DAILY 02/05/19 03/18/20 History [Enalapril/Hydrochlorothiazide 10-25 mg Tablet] Calcium Carbonate/Vitamin D3 1 tab PO DAILY 03/18/20 03/18/20 History [Calcium 500-Vit D3 600 Tablet] Allergies Allergy/AdvReac Type Severity Reaction Status Date / Time amoxicillin Allergy Rash/Hives Verified 03/18/20 08:23 Penicillins Allergy Rash/Hives Verified 03/18/20 08:23 Surgical - Exam Vital Signs Temp Pulse Resp BP Pulse Ox 98.3 F 57 L 20 174/89 96 03/18/20 01:43 03/18/20 01:43 03/18/20 01:43 03/18/20 01:43 03/18/20 01:43 Morbid obese - General well developed - Eyes PERRL - ENT normal pinna, normal nares - Neck no masses - Cardiovascular Rhythm: regular - Abdomen Large incarcerated incisional hernia located in the lower portion of the midline scar. The hernia is partially reducible. There is also another incisional hernia located in the epigastric area Abdomen: soft Results - Labs 03/18/20 01:52 03/18/20 01:52 Abnormal Lab Results - Last 24 Hours (Table) 03/18/20 03/18/20 03/18/20 Range/Units 01:52 01:52 03:40 Neutrophils # 8.0 H (1.3-7.7) k/uL Sodium 136 L (137-145) mmol/L BUN 21 H (7-17) mg/dL Glucose 132 H (74-99) mg/dL Ur Specific [place] 1.050 H (1.001-1.035) Urine Protein Trace H (Negative) Urine Ketones 1+ H (Negative) Urine Nitrite Positive H (Negative) Ur Leukocyte Esterase Small H (Negative) Urine Bacteria Occasional H (None) /hpf Urine Mucus Rare H (None) /hpf Diabetes panel 03/18/20 Range/Units 01:52 Sodium 136 L (137-145) mmol/L Potassium 3.7 (3.5-5.1) mmol/L Chloride 104 (98-107) mmol/L Carbon Dioxide 22 (22-30) mmol/L BUN 21 H (7-17) mg/dL Creatinine 0.62 (0.52-1.04) mg/dL Glucose 132 H (74-99) mg/dL Calcium 9.4 (8.4-10.2) mg/dL AST 23 (14-36) U/L ALT 10 (4-34) U/L Alkaline Phosphatase 50 (38-126) U/L Total Protein 7.0 (6.3-8.2) g/dL Albumin 4.1 (3.5-5.0) g/dL Calcium panel 03/18/20 Range/Units 01:52 Calcium 9.4 (8.4-10.2) mg/dL Albumin 4.1 (3.5-5.0) g/dL Pituitary panel 03/18/20 Range/Units 01:52 Sodium 136 L (137-145) mmol/L Potassium 3.7 (3.5-5.1) mmol/L Chloride 104 (98-107) mmol/L Carbon Dioxide 22 (22-30) mmol/L BUN 21 H (7-17) mg/dL Creatinine 0.62 (0.52-1.04) mg/dL Glucose 132 H (74-99) mg/dL Calcium 9.4 (8.4-10.2) mg/dL Adrenal panel 06/30/20 Range/Units 01:52 Sodium 136 L (137-145) mmol/L Potassium 3.7 (3.5-5.1) mmol/L Chloride 104 (98-107) mmol/L Carbon Dioxide 22 (22-30) mmol/L BUN 21 H (7-17) mg/dL Creatinine 0.62 (0.52-1.04) mg/dL Glucose 132 H (74-99) mg/dL Calcium 9.4 (8.4-10.2) mg/dL Total Bilirubin 0.7 (0.2-1.3) mg/dL AST 23 (14-36) U/L ALT 10 (4-34) U/L Alkaline Phosphatase 50 (38-126) U/L Total Protein 7.0 (6.3-8.2) g/dL Albumin 4.1 (3.5-5.0) g/dL Assessment and Plan Assessment: Incarcerated incisional hernia with bowel obstruction. Patient undergo exploratory laparotomy and repair of incarcerated incisional hernia today.
[2020-03-18] MEDS ORDERED: IV FLUID CONTINUATION 1,000 ML IV ONE (10:19)
[2020-03-18] MEDS ORDERED: DEXAMETHASONE SOD PHOS (MDV) 100 MG/10 ML VIAL IVP ONE (10:26)
[2020-03-18] MEDS ORDERED: fentaNYL (PF) 50 MCG/ML 2 ML AMP ONE (11:12)
[2020-03-18] MEDS ORDERED: ROCURONIUM BROMIDE 10 MG/ML 5 ML VIAL IV ONE (11:12)
[2020-03-18] MEDS ORDERED: NEOSTIGMINE 1 MG/ML 10 ML VIAL ONE (11:12)
[2020-03-18] MEDS ORDERED: PROPOFOL 10 MG/ML 20 ML VIAL IV ONE (11:12)
[2020-03-18] MEDS ORDERED: GLYCOPYRROLATE 0.2 MG/ML 2 ML VIAL ONE (11:12)
[2020-03-18] MEDS ORDERED: LIDOCAINE 1% INJ 10MG/ML (20 ML MDV) ONE (11:12)
[2020-03-18] MEDS ORDERED: KETAMINE 10 MG/ML 20 ML VIAL ONE (11:12)
[2020-03-18] MEDS ORDERED: SUCCINYLCHOLINE CHLORIDE 100 MG/5 ML SYR IV ONE (11:12)
[2020-03-18] MEDS ORDERED: MIDAZOLAM 2 MG/2 ML VIAL ONE (11:12)
[2020-03-18] MEDS ORDERED: LACTATED RINGERS 1,000 ML IV ONE ×3 (11:43→15:59)
[2020-03-18] MEDS ORDERED: NALOXONE 0.4 MG/ML 1 ML VIAL IV PRN (12:17)
[2020-03-18] MEDS ORDERED: HYDROmorphone 0.5 MG/0.5 ML SYRINGE IVP PRN (12:17)
--- NOTE | 2020-03-18 12:17 | P.OP ---
Date of Procedure: 03/18/20 Preoperative Diagnosis: Incarcerated incisional hernia Postoperative Diagnosis: Incarcerated incisional hernia Procedure(s) Performed: (Incarcerated incisional hernia Partial omentectomy Anesthesia: KYLE Surgeon: Mark Parsons Estimated Blood Loss (ml): 20 Pathology: other (Omentum) Condition: stable Disposition: PACU Description of Procedure: The patient's placed on the operating table in the supine position. She received general anesthesia. Her abdomen was prepped and draped in sterile fashion. The patient had an incarcerated incisional hernia located near the umbilicus. The skin was incised and using blunt and sharp dissection with cautery the hernia sac was dissected free from some taste tissues. Hernia sac was then opened and then excised using the Enseal device. The incarcerated small bowel was placed back internal cavity. A portion of nonviable omentum was then transected and sent to pathology. The omentum was transected with the Enseal device. The fascial closure was then performed using 0 Ethibond figure 8 suture. A AMADO drains placed on top the fascia. Brought through separate stab incision skin was closed rajeev. Patient top she will was sent to recovery room stable condition.
[2020-03-18] MEDS ORDERED: ACETAMINOPHEN TAB 500 MG TAB PO PRN (12:27)
[2020-03-18] MEDS: HYDROmorphone 0.5 MG/0.5 ML SYRINGE IVP ONE ×3 (12:50→15:58)
--- NOTE | 2020-03-18 15:31 | P.CONS ---
History of Present Illness - Reason for Consult Incarcerated abdominal hernia - History of Present Illness Patient was a 70-year-old female with the history of incisional hernia came in with severe abdominal pain patient is found to have incarcerated hernia was taken to patient had had a hernia repair with partial omentectomy. Patient pain is significantly better patient is suffering Hematocrit postoperative period when she was significantly drowsy unable to get much of the history. Although she denied any symptoms at this time. Review of Systems REVIEW OF SYSTEMS: CONSTITUTIONAL: No fever, no malaise, no fatigue. HEENT: No recent visual problems or hearing problems. Denied any sore throat. CARDIOVASCULAR: No chest pain, orthopnea, PND, no palpitations, no syncope. PULMONARY: No shortness of breath, no cough, no hemoptysis. GASTROINTESTINAL: No diarrhea, no nausea, no vomiting, no abdominal pain. NEUROLOGICAL: No headaches, no weakness, no numbness. HEMATOLOGICAL: Denies any bleeding or petechiae. GENITOURINARY: Denies any burning micturition, frequency, or urgency. MUSCULOSKELETAL/RHEUMATOLOGICAL: Denies any joint pain, swelling, or any muscle pain. ENDOCRINE: Denies any polyuria or polydipsia. The rest of the 14-point review of systems is negative. Past Medical History Past Medical History: GERD/Reflux, GI Bleed, Hypertension, Rheumatoid Arthritis (RA) Additional Past Medical History / Comment(s): hernia History of Any Multi-Drug Resistant Organisms: None Reported Past Surgical History: Joint Replacement Additional Past Surgical History / Comment(s): viola knee, cataract sx with lens, bleeding ulcer sx Past Anesthesia/Blood Transfusion Reactions: No Reported Reaction Past Psychological History: No Psychological Hx Reported Smoking Status: Never smoker Past Alcohol Use History: None Reported Past Drug Use History: None Reported - Past Family History Mother Additional Family Medical History / Comment(s): a. fib, hip replaced Medications and Allergies Home Medications Medication Instructions Recorded Confirmed Type Acetaminophen Tab [Tylenol] 1,000 mg PO Q6H PRN 02/05/19 03/18/20 History Enalapril/Hydrochlorothiazide 1 tab PO DAILY 02/05/19 03/18/20 History [Enalapril/Hydrochlorothiazide 10-25 mg Tablet] Calcium Carbonate/Vitamin D3 1 tab PO DAILY 03/18/20 03/18/20 History [Calcium 500-Vit D3 600 Tablet] Allergies Allergy/AdvReac Type Severity Reaction Status Date / Time amoxicillin Allergy Rash/Hives Verified 03/18/20 08:23 Penicillins Allergy Rash/Hives Verified 03/18/20 08:23 Physical Exam Vitals: Vital Signs Temp Pulse Pulse Pulse Resp BP BP 03/18/20 14:01 72 20 134/60 03/18/20 13:32 57 L 16 133/61 03/18/20 13:02 52 L 16 150/67 03/18/20 12:46 53 L 18 172/75 03/18/20 12:33 72 18 143/82 03/18/20 12:23 98 F 91 18 158/92 03/18/20 10:22 97.8 F 68 18 183/88 03/18/20 10:19 62 18 148/78 03/18/20 09:00 18 03/18/20 08:00 63 18 147/79 03/18/20 04:44 98.5 F 60 18 150/84 03/18/20 01:43 98.3 F 57 L 20 174/89 Pulse Ox 03/18/20 14:01 93 L 03/18/20 13:32 95 03/18/20 13:02 100 03/18/20 12:46 99 03/18/20 12:33 99 03/18/20 12:23 94 L 03/18/20 10:22 95 03/18/20 10:19 98 03/18/20 09:00 98 03/18/20 08:00 98 03/18/20 04:44 98 03/18/20 01:43 96 Intake and Output 03/18/20 03/18/20 03/18/20 06:59 14:59 22:59 Intake Total 1600 Output Total 450 Balance 1150 Intake: IV 1600 Output: Urine 400 Uretheral ([place]) 150 Estimated Blood Loss 50 Other: Weight 120.202 kg 120.2 kg PHYSICAL EXAMINATION: GENERAL: The patient is sleepy and oriented x3, not in any acute distress. Well developed, well nourished. HEENT: Pupils are round and equally reacting to light. EOMI. No scleral icterus. No conjunctival pallor. Normocephalic, atraumatic. No pharyngeal erythema. No thyromegaly. CARDIOVASCULAR: S1 and S2 present. No murmurs, rubs, or gallops. PULMONARY: Chest is clear to auscultation, no wheezing or crackles. ABDOMEN: Abdominal binder in place sluggish bowel sounds MUSCULOSKELETAL: No joint swelling or deformity. EXTREMITIES: No cyanosis, clubbing, or pedal edema. NEUROLOGICAL: Gross neurological examination did not reveal any focal deficits. SKIN: No rashes. Results CBC & Chem 7: 03/18/20 01:52 03/18/20 01:52 Labs: Abnormal Lab Results - Last 24 Hours (Table) 03/18/20 03/18/20 03/18/20 Range/Units 01:52 01:52 03:40 Neutrophils # 8.0 H (1.3-7.7) k/uL Sodium 136 L (137-145) mmol/L BUN 21 H (7-17) mg/dL Glucose 132 H (74-99) mg/dL Ur Specific [place] 1.050 H (1.001-1.035) Urine Protein Trace H (Negative) Urine Ketones 1+ H (Negative) Urine Nitrite Positive H (Negative) Ur Leukocyte Esterase Small H (Negative) Urine Bacteria Occasional H (None) /hpf Urine Mucus Rare H (None) /hpf Assessment and Plan Plan: -Incarcerated incisional hernia: Status post repair and partial omentectomy. Pain management as per primary service. -Gastroesophageal reflux disease: Patient will be continued on Protonix which patient is already on -hypertension patient is expected to have lower blood pressures for surgery as of which I'll hold her hydrochlorothiazide as well as epinephrine monitor the blood pressure depending on the blood pressures also resume her home me dications. -Rheumatoid arthritis
[2020-03-18] MEDS: DOCUSATE 100 MG CAP PO SCH (20:29)
[2020-03-18] MEDS: traMADol 50 MG TAB PO PRN (22:33)
[2020-03-19 08:12] LABS: Basophils % (A) 0 %; Eosinophils # (A) 0.1 k/uL (0-0.7); Eosinophils % (A) 1 %; HCT 39.1 % (34.0-46.0); HGB 12.9 gm/dL (11.4-16.0); Lymphocytes # (A) 1.2 k/uL (1.0-4.8); Lymphocytes % (A) 11 %; MCH 30.2 pg (25.0-35.0); MCV 91.3 fL (80.0-100.0); Monocytes % (A) 8 %; Neutrophils # (A) 9.5 k/uL (1.3-7.7); Neutrophils % (A) 80 %; Platelet Count 223 k/uL (150-450); RBC 4.29 m/uL (3.80-5.40); RDW 13.4 % (11.5-15.5); WBC 11.9 k/uL (3.8-10.6)
[2020-03-19 08:27] LABS: ALT 9 U/L (4-34); AST 29 U/L (14-36); African American GFR (CKD) >90 (>60 ml/min/1.73 sqM); Albumin 3.3 g/dL (3.5-5.0); Alkaline Phosphatase 40 U/L (38-126); Anion Gap 4 mmol/L; Blood Urea Nitrogen 10 mg/dL (7-17); Calcium 8.7 mg/dL (8.4-10.2); Carbon Dioxide 27 mmol/L (22-30); Chloride 106 mmol/L (98-107); Glucose 111 mg/dL (74-99); Non-African American GFR(CKD) >90 (>60 ml/min/1.73 sqM); Potassium 3.7 mmol/L (3.5-5.1); Sodium 137 mmol/L (137-145); Total Bilirubin 0.7 mg/dL (0.2-1.3); Total Protein 6.1 g/dL (6.3-8.2)
[2020-03-19] MEDS ORDERED: LISINOPRIL 10 MG TAB PO SCH (09:00)
[2020-03-19] MEDS: DOCUSATE 100 MG CAP PO SCH ×2 (09:17→21:09)
[2020-03-19] MEDS: PANTOPRAZOLE 40 MG/10 ML VIAL IVP SCH (09:18)
[2020-03-19] MEDS: HYDROmorphone 1 MG/ML 1 ML SYRINGE IVP PRN ×3 (09:18→21:14)
--- NOTE | 2020-03-19 09:18 | P.PN ---
Progress Note - Text Progress Note Date: 03/19/20 Patient's postoperative day 1 from repair of incarcerated ventral hernia. She has some complaints of incisional pain she's had no significant flatus. On exam vital signs are stable. Abdomen soft. Incision sites clean dry intact. Patient will start on clear liquids today.
[2020-03-19] MEDS: ENOXAPARIN 40 MG/0.4 ML SYRINGE SQ SCH (09:19)
--- NOTE | 2020-03-19 12:51 | P.PN ---
Subjective No overnight events patient still has pain did pass gas did not move her bowel yet. Constitutional: Denied any fatigue denied any fever. Cardio vascular: denied any chest pain, palpitations Gastrointestinal denied any nausea vomiting Pulmonary: Denied any shortness of breath cough Neurologic denied any new focal deficits All inpatient medications were reviewed and appropriate changes in these medications as dictated in the interval history and assessment and plan. Objective - Vital Signs Vital signs: Vital Signs Temp 99 F 03/19/20 11:32 Pulse 69 03/19/20 11:32 Resp 17 03/19/20 11:32 BP 125/61 03/19/20 11:32 Pulse Ox 93 L 03/19/20 11:32 Intake & Output 03/18/20 03/19/20 03/19/20 18:59 06:59 18:59 Intake Total 2000 1400 Output Total 850 1415 Balance 1150 -15 Weight 120.2 kg Intake: IV 2000 Intake, IV Titration 600 Amount Lactated Ringers 1,000 ml 600 @ 100 mls/hr IV .Q10H [facility] Rx#:[id number] Oral 800 Output: Drainage 15 Left Abdomen 15 Urine 800 1400 Uretheral (Munoz) 150 Estimated Blood Loss 50 Other: Voiding Method Indwelling Catheter Indwelling Catheter - Exam PHYSICAL EXAMINATION: GENERAL: The patient is alert and oriented x3, not in any acute distress. Well developed, well nourished. HEENT: Pupils are round and equally reacting to light. EOMI. No scleral icterus. No conjunctival pallor. Normocephalic, atraumatic. No pharyngeal erythema. No thyromegaly. CARDIOVASCULAR: S1 and S2 present. No murmurs, rubs, or gallops. PULMONARY: Chest is clear to auscultation, no wheezing or crackles. ABDOMEN: Soft, abdominal binder normoactive bowel sounds. No palpable organomegaly. MUSCULOSKELETAL: No joint swelling or deformity. EXTREMITIES: No cyanosis, clubbing, or pedal edema. NEUROLOGICAL: Gross neurological examination did not reveal any focal deficits. SKIN: No rashes. - Labs CBC & Chem 7: 03/19/20 07:31 03/19/20 07:31 Labs: Abnormal Lab Results - Last 24 Hours (Table) 03/19/20 03/19/20 Range/Units 07: 07:31 WBC 11.9 H (3.8-10.6) k/uL Neutrophils # 9.5 H (1.3-7.7) k/uL Glucose 111 H (74-99) mg/dL Total Protein 6.1 L (6.3-8.2) g/dL Albumin 3.3 L (3.5-5.0) g/dL Assessment and Plan Plan: -Incarcerated incisional hernia: Status post repair and partial omentectomy. Pain management as per primary service. -Gastroesophageal reflux disease: Patient will be continued on Protonix which patient is already on -hypertension patient is expected to have lower blood pressures for surgery as of which I'll hold her hydrochlorothiazide as well as epinephrine monitor the blood pressure depending on the blood pressures also resume her home medications. -Rheumatoid arthritis
[2020-03-20] MEDS: HYDROmorphone 1 MG/ML 1 ML SYRINGE IVP PRN ×3 (02:59→22:08)
[2020-03-20] MEDS: DOCUSATE 100 MG CAP PO SCH ×2 (08:43→21:54)
[2020-03-20] MEDS: PANTOPRAZOLE 40 MG/10 ML VIAL IVP SCH ×2 (08:43→21:54)
[2020-03-20] MEDS: ENOXAPARIN 40 MG/0.4 ML SYRINGE SQ SCH (08:43)
--- NOTE | 2020-03-20 11:30 | P.PN ---
Progress Note - Text Progress Note Date: 03/20/20 The patient's postoperative day 2 from repair of incarcerated incisional hernia. She's had limited and ablation. She states that she has back and foot pain. On exam her lesser stable. Abdomen is soft. Incision is clean dry tach. Patient will sit in the chair today. She will also do pulmonary toilet with incentive from her. She will remain on clear liquids.
[2020-03-20] MEDS: HYDROcodone/APAP 5-325MG 1 EACH TAB PO PRN ×2 (12:53→23:37)
--- NOTE | 2020-03-20 13:07 | P.PN ---
Subjective Progress Note Date: 03/20/20 Principal diagnosis: - Reason for Consult Incarcerated abdominal hernia - History of Present Illness Patient was a 70-year-old female with the history of incisional hernia came in with severe abdominal pain patient is found to have incarcerated hernia was taken to patient had had a hernia repair with partial omentectomy. Patient pain is significantly better patient is suffering Hematocrit postoperative period when she was significantly drowsy unable to get much of the history. Although she denied any symptoms at this time. 03/20/2020 Patient is seen and evaluated in follow-up today and continues to have no bowel movements. Patient states she is not passing gas but is belching. Patient continues on a clear liquid diet and is having intermittent feelings of nausea with abdominal discomfort. Abdominal binder is noted. Patient is more awake and alert today. Discussed with the patient about continuing to use incentive spirometer at least 10 times every hour while awake. Patient is having some right foot discomfort today although denies any trauma or injury. Objective - Vital Signs Vital signs: Vital Signs Temp 99.3 F 03/20/20 12:54 Pulse 99 03/20/20 12:54 Resp 20 03/20/20 12:54 BP 118/83 03/20/20 12:54 Pulse Ox 92 L 03/20/20 12:54 Intake & Output 03/19/20 03/20/20 03/20/20 18:59 06:59 18:59 Intake Total 200 Output Total 790 125 Balance -790 75 Intake: Oral 200 Output: Drainage 90 25 Left Abdomen 90 25 Urine 700 100 Other: Voiding Method Indwelling Catheter Bedside Commode Bedside Commode # Voids 3 - Exam GENERAL: The patient is awake and oriented x3, not in any acute distress. Well developed, well nourished. HEENT: Pupils are round and equally reacting to light. EOMI. No scleral icterus. No conjunctival pallor. Normocephalic, atraumatic. No pharyngeal erythema. No thyromegaly. CARDIOVASCULAR: S1 and S2 present. No murmurs, rubs, or gallops. PULMONARY: Chest is clear to auscultation, no wheezing or crackles. ABDOMEN: Abdominal binder in place sluggish bowel sounds MUSCULOSKELETAL: No joint swelling or deformity. EXTREMITIES: No cyanosis, clubbing, or pedal edema. Right upper foot discomfort on palpation with no signs of redness or swelling noted NEUROLOGICAL: Gross neurological examination did not reveal any focal deficits. SKIN: No rashes. - Labs CBC & Chem 7: 03/19/20 07:31 03/19/20 07:31 Assessment and Plan Assessment: -Incarcerated incisional hernia: Status post repair and partial omentectomy. Pain management as per primary service. -Gastroesophageal reflux disease: Patient will be continued on Protonix which patient is already on -hypertension patient is expected to have lower blood pressures status post surgery, antihypertensive medications on hold -Rheumatoid arthritis Plan: Continue current medications, management, and symptomatic treatment. Patient continues to belch but denies passing gas or having bowel movements at this time. Patient is on clear liquid diet and not eating very much as she continues to have abdominal discomfort. Will continue to hold antihypertensives and monitor vital signs and labs closely. Will continue to follow along with surgery. Further recommendations to follow.
[2020-03-21] MEDS: HYDROcodone/APAP 5-325MG 1 EACH TAB PO PRN ×2 (06:24→18:59)
[2020-03-21] MEDS: PANTOPRAZOLE 40 MG/10 ML VIAL IVP SCH ×2 (08:52→20:07)
[2020-03-21] MEDS: ENOXAPARIN 40 MG/0.4 ML SYRINGE SQ SCH (08:52)
[2020-03-21] MEDS: DOCUSATE 100 MG CAP PO SCH ×2 (08:52→20:07)
[2020-03-21 09:12] VITALS: BMI 44.1
[2020-03-21] MEDS: HYDROmorphone 1 MG/ML 1 ML SYRINGE IVP PRN ×3 (09:24→21:45)
--- NOTE | 2020-03-21 11:25 | US ---
EXAMINATION TYPE: US venous doppler duplex LE RT DATE OF EXAM: 03/21/2020 11:15 AM COMPARISON: NONE CLINICAL HISTORY: right foot and leg pain. SIDE PERFORMED: TECHNIQUE: The lower extremity deep venous system is examined utilizing real time linear array sonog lynn with graded compression, doppler sonography and color-flow sonography. VESSELS IMAGED: External Iliac Vein (EIV) Common Femoral Vein Deep Femoral Vein Greater Saphenous Vein * Femoral Vein Popliteal Vein Small Saphenous Vein * Proximal Calf Veins (* superficial vessels) Patient of large body habitus. There is normal flow, compressibility, vascular waveforms. Right Leg: Negative for DVT IMPRESSION: No evident deep venous arthrosis at or above the right knee
--- NOTE | 2020-03-21 13:13 | P.PN ---
Subjective Progress Note Date: 03/21/20 CHIEF COMPLAINT: Ventral hernia repair HISTORY OF PRESENT ILLNESS: The patient is a 75-year-old female status post mesh repair for small bowel obstruction 03/18/2020. She is postop day 3. She denies nausea and vomiting. She is tolerating clear liquids. She is passing flatus. No bowel movements. She is sitting up in chair. ROS: No reports of nausea and vomiting. No bowel movements. No fevers or chills. No new chest pain. No productive sputum PHYSICAL EXAM: VITAL SIGNS: Reviewed. T-max 99.3 CONSTITUTIONAL: Well developed and in no acute distress. EYES: Conjuctivae without sclera icterus. Extraocular movements grossly intact. HEAD, EARS, NOSE, THROAT: Moist buccal mucosa. Head is atraumatic, normocephalic. Hears conversational speech. No nasal drainage. NECK: Supple. No thyroidomegaly. RESPIRATORY: Non-labored respirations and equal bilateral excursions. CARDIOVASCULAR: Palpable 2+ radial pulses. ABDOMEN: Dressing clean dry and intact. MUSCULOSKELETAL: No gross deformity of the lower extremities noted. No clubbing. No cyanosis. SKIN: Good skin turgor. Well perfused. NEUROLOGIC: Cranial nerves II through XII grossly intact. No focal or lateralizing signs. PSYCH: Appropriate affect. Alert and oriented to person, place and time. CLINICAL LABS: Last for Boso count 11,900, elevated. ASSESSMENT: 1. Incarcerated hernia with small bowel obstruction PLAN: 1. Continue liquid diet. 2. Await bowel movement secondary to hernia with obstruction 3. Disposition pending bowel movement Objective - Vital Signs Vital signs: Vital Signs Temp 99 F 03/21/20 12:50 Pulse 89 03/21/20 12:50 Resp 17 03/21/20 12:50 BP 139/84 03/21/20 12:50 Pulse Ox 94 L 03/21/20 12:50 Intake & Output 03/20/20 03/21/20 03/21/20 18:59 06:59 18:59 Intake Total 540 Output Total 30 10 Balance 510 -10 Weight 120.2 kg Intake: Oral 540 Output: Drainage 30 10 Left Abdomen 30 10 Other: Voiding Method Bedside Commode Toilet Urinal Bedside Commode Bedpan # Voids 1 - Labs CBC & Chem 7: 03/19/20 07:31 03/19/20 07:31 Assessment and Plan (1) Morbid obesity due to excess calories Current Visit: Yes Status: Acute Code(s): E66.01 - MORBID (SEVERE) OBESITY DUE TO EXCESS CALORIES SNOMED Code(s): 664484941 (2) Morbid obesity with BMI of 40.0-44.9, adult Current Visit: Yes Status: Acute Code(s): E66.01 - MORBID (SEVERE) OBESITY DUE TO EXCESS CALORIES; Z68.41 - BODY MASS INDEX (BMI) 40.0-44.9, ADULT SNOMED Code(s): 049603928 (3) Abdominal wall hernia Current Visit: Yes Status: Acute Code(s): K43.9 - VENTRAL HERNIA WITHOUT OBSTRUCTION OR GANGRENE SNOMED Code(s): 674530427 (4) SBO (small bowel obstruction) Current Visit: Yes Status: Acute Code(s): K56.609 - UNSP INTESTNL OBST, UNSP TO PARTIAL VERSUS COMPLETE OBST SNOMED Code(s): 790887531 (5) Ventral hernia Current Visit: Yes Status: Acute Code(s): K43.9 - VENTRAL HERNIA WITHOUT OBSTRUCTION OR GANGRENE SNOMED Code(s): 312390622
--- NOTE | 2020-03-21 15:02 | P.PN ---
Subjective Progress Note Date: 03/21/20 Principal diagnosis: - Reason for Consult Incarcerated abdominal hernia - History of Present Illness Patient was a 70-year-old female with the history of incisional hernia came in with severe abdominal pain patient is found to have incarcerated hernia was taken to patient had had a hernia repair with partial omentectomy. Patient pain is significantly better patient is suffering Hematocrit postoperative period when she was significantly drowsy unable to get much of the history. Although she denied any symptoms at this time. 03/20/2020 Patient is seen and evaluated in follow-up today and continues to have no bowel movements. Patient states she is not passing gas but is belching. Patient continues on a clear liquid diet and is having intermittent feelings of nausea with abdominal discomfort. Abdominal binder is noted. Patient is more awake and alert today. Discussed with the patient about continuing to use incentive spirometer at least 10 times every hour while awake. Patient is having some right foot discomfort today although denies any trauma or injury. 03/21/2020 Patient is seen in follow-up today and is having some right lower extremity pain with burning sensation on the back of her calf. Venous Doppler ordered and was negative for DVT. Patient is maintained on subcutaneous Lovenox and will con tinue at this time. Patient recently underwent ventral hernia repair with resection for small bowel obstruction. Patient states she is passing gas but denies any bowel movements at this time. She is maintained on clear liquids. Patient continues to have some acid reflux and Protonix was ordered and will be increased to twice daily. Will continue to follow along closely with surgery. Objective - Vital Signs Vital signs: Vital Signs Temp 99 F 03/21/20 12:50 Pulse 89 03/21/20 12:50 Resp 17 03/21/20 12:50 BP 139/84 03/21/20 12:50 Pulse Ox 94 L 03/21/20 12:50 Intake & Output 03/20/20 03/21/20 03/21/20 18:59 06:59 18:59 Intake Total 540 Output Total 30 10 Balance 510 -10 Weight 120.2 kg Intake: Oral 540 Output: Drainage 30 10 Left Abdomen 30 10 Other: Voiding Method Bedside Commode Toilet Urinal Bedside Commode Bedpan # Voids 1 2 - Exam GENERAL: The patient is awake and oriented x3, not in any acute distress. Well developed, well nourished. Temp is 99.3F, pulse is 80, respirations are 18, blood pressure is 118/77, oxygen saturation is 92% on room air. HEENT: Pupils are round and equally reacting to light. EOMI. No scleral icterus. No conjunctival pallor. Normocephalic, atraumatic. No pharyngeal erythema. No thyromegaly. CARDIOVASCULAR: S1 and S2 present. No murmurs, rubs, or gallops. PULMONARY: Diminished breath sounds bilaterally with no wheezing or crackles noted. ABDOMEN: Abdominal binder in place, sluggish bowel sounds MUSCULOSKELETAL: No joint swelling or deformity. EXTREMITIES: No cyanosis, clubbing, or pedal edema. Right upper foot and right lower extremity near the calf and behind the knee discomfort on palpation with no signs of redness or swelling noted NEUROLOGICAL: Gross neurological examination did not reveal any focal deficits. SKIN: No rashes. - Labs CBC & Chem 7: 03/19/20 07:31 03/19/20 07:31 Assessment and Plan Assessment: -Incarcerated incisional hernia: Status post repair and partial omentectomy. Pain management as per primary service. -Gastroesophageal reflux disease: Patient will be continued on Protonix increased to twice daily -hypertension patient is expected to have lower blood pressures status post surgery, antihypertensive medications on hold -Rheumatoid arthritis Plan: Continue current medications, management, and symptomatic treatment. Patient states she is passing gas but no bowel movements at this time. Patient is on clear liquid diet and not eating very much as she continues to have abdominal discomfort and some epigastric discomfort. Protonix will be increased to twice daily. Will continue to hold antihypertensives and monitor vital signs and labs closely. Will continue to follow along with surgery. Instructed the patient to continue with incentive spirometer at least 10 times every hour while awake and increase activity as tolerated. Further recommendations to follow.
[2020-03-21 21:52] LABS: Appearance,Urine Turbid (Clear); Bacteria,Urine Many /hpf; Bilirubin,Urine Negative (Negative); Blood,Urine Small (Negative); Color,Urine Yellow; Glucose,Urine (UA) Trace (Negative); Ketones,Urine 1+ (Negative); Leukocyte Esterase,Urine Moderate (Negative); Mucus,Urine Few /hpf; Nitrite,Urine Negative (Negative); Protein,Urine 2+ (Negative); RBC,Urine 10 /hpf (0-5); Specific Gravity,Urine 1.023 (1.001-1.035); Squamous Epithelial Cell,Urine 3 /hpf (0-4); WBC,Urine 62 /hpf (0-5)
[2020-03-22] MEDS: HYDROcodone/APAP 5-325MG 1 EACH TAB PO PRN ×3 (01:24→17:19)
[2020-03-22 06:33] LABS: Basophils % (A) 0 %; Eosinophils # (A) 0.1 k/uL (0-0.7); Eosinophils % (A) 1 %; HCT 35.4 % (34.0-46.0); HGB 11.7 gm/dL (11.4-16.0); Lymphocytes # (A) 1.4 k/uL (1.0-4.8); Lymphocytes % (A) 11 %; MCH 29.7 pg (25.0-35.0); MCV 90.1 fL (80.0-100.0); Mean Platelet Volume 9.2; Monocytes # (A) 1.5 k/uL (0-1.0); Monocytes % (A) 11 %; Neutrophils # (A) 9.8 k/uL (1.3-7.7); Neutrophils % (A) 76 %; Platelet Count 195 k/uL (150-450); RBC 3.93 m/uL (3.80-5.40); WBC 12.9 k/uL (3.8-10.6)
[2020-03-22 06:41] LABS: African American GFR (CKD) >90 (>60 ml/min/1.73 sqM); Anion Gap 7 mmol/L; Blood Urea Nitrogen 9 mg/dL (7-17); Calcium 8.2 mg/dL (8.4-10.2); Carbon Dioxide 30 mmol/L (22-30); Chloride 100 mmol/L (98-107); Glucose 109 mg/dL (74-99); Non-African American GFR(CKD) >90 (>60 ml/min/1.73 sqM); Potassium 3.2 mmol/L (3.5-5.1); Sodium 137 mmol/L (137-145)
[2020-03-22] MEDS: PANTOPRAZOLE 40 MG/10 ML VIAL IVP SCH ×2 (08:45→20:10)
[2020-03-22] MEDS: traMADol 50 MG TAB PO PRN ×2 (08:46→20:09)
[2020-03-22] MEDS: HYDROCHLOROTHIAZIDE 25 MG TAB PO SCH (08:46)
[2020-03-22] MEDS: DOCUSATE 100 MG CAP PO SCH ×2 (08:46→20:10)
[2020-03-22] MEDS: ENOXAPARIN 40 MG/0.4 ML SYRINGE SQ SCH (08:47)
[2020-03-22] MEDS: LISINOPRIL 20 MG TAB PO SCH (08:47)
--- NOTE | 2020-03-22 13:12 | P.PN ---
Subjective Progress Note Date: 03/22/20 CHIEF COMPLAINT: Ventral hernia repair HISTORY OF PRESENT ILLNESS: The patient is a 75-year-old female status post mesh repair for small bowel obstruction 03/18/2020. She is postop day 4. She reports passing flatus. No bowel movement. No moderate abdominal pain. Her pain is controlled. ROS: No reports of nausea and vomiting. No bowel movements. No fevers or chills. No new chest pain. No productive sputum PHYSICAL EXAM: VITAL SIGNS: Reviewed. T-max 99.9 CONSTITUTIONAL: Well developed and in no acute distress. EYES: Conjuctivae without sclera icterus. Extraocular movements grossly intact. HEAD, EARS, NOSE, THROAT: Moist buccal mucosa. Head is atraumatic, normocephalic. Hears conversational speech. No nasal drainage. NECK: Supple. No thyroidomegaly. RESPIRATORY: Non-labored respirations and equal bilateral excursions. CARDIOVASCULAR: Palpable 2+ radial pulses. ABDOMEN: Dressing clean dry and intact. MUSCULOSKELETAL: No gross deformity of the lower extremities noted. No clubbing. No cyanosis. SKIN: Good skin turgor. Well perfused. NEUROLOGIC: Cranial nerves II through XII grossly intact. No focal or lateralizing signs. PSYCH: Appropriate affect. Alert and oriented to person, place and time. CLINICAL LABS: WBC elevated 11.9-12.9. The test and low 3.2. Urinalysis positive ASSESSMENT: 1. Incarcerated hernia with small bowel obstruction PLAN: 1. Will advance diet. 2. Urine culture pending for urinary tract infection Objective - Vital Signs Vital signs: Vital Signs Temp 98.7 F 03/22/20 11:11 Pulse 90 03/22/20 11:11 Resp 20 03/22/20 11:11 BP 118/74 03/22/20 11:11 Pulse Ox 97 03/22/20 11:11 Intake & Output 03/21/20 03/22/20 03/22/20 18:59 06:59 18:59 Intake Total 50 Balance 50 Weight 120.2 kg Intake: Intake, IV Titration 50 Amount cefTRIAXone 1 gm In 50 Sodium Chloride 0.9% 50 ml @ 100 mls/hr IVPB Q24H [facility] Rx#:[id number] Other: Voiding Method Bedpan Bedpan Diaper Diaper Incontinent Incontinent # Voids 2 4 - Labs CBC & Chem 7: 03/22/20 05:31 03/22/20 05:31 Labs: Abnormal Lab Results - Last 24 Hours (Table) 03/21/20 03/22/20 03/22/20 Range/Units 21:37 05:31 05:31 WBC 12.9 H (3.8-10.6) k/uL Neutrophils # 9.8 H (1.3-7.7) k/uL Monocytes # 1.5 H (0-1.0) k/uL Potassium 3.2 L (3.5-5.1) mmol/L Creatinine 0.45 L (0.52-1.04) mg/dL Glucose 109 H (74-99) mg/dL Calcium 8.2 L (8.4-10.2) mg/dL Urine Appearance Turbid H (Clear) Urine Protein 2+ H (Negative) Urine Glucose (UA) Trace H (Negative) Urine Ketones 1+ H (Negative) Urine Blood Small H (Negative) Ur Leukocyte Esterase Moderate H (Negative) Urine RBC 10 H (0-5) /hpf Urine WBC 62 H (0-5) /hpf Urine Bacteria Many H (None) /hpf Urine Mucus Few H (None) /hpf Microbiology - Last 24 Hours (Table) 03/21/20 21:37 Urine Culture - Preliminary Urine,Catheterized Assessment and Plan (1) Morbid obesity due to excess calories Current Visit: Yes Status: Acute Code(s): E66.01 - MORBID (SEVERE) OBESITY DUE TO EXCESS CALORIES SNOMED Code(s): 582193741 (2) Morbid obesity with BMI of 40.0-44.9, adult Current Visit: Yes Status: Acute Code(s): E66.01 - MORBID (SEVERE) OBESITY DUE TO EXCESS CALORIES; Z68.41 - BODY MASS INDEX (BMI) 40.0-44.9, ADULT SNOMED Code(s): 002992357 (3) Abdominal wall hernia Current Visit: Yes Status: Acute Code(s): K43.9 - VENTRAL HERNIA WITHOUT OBSTRUCTION OR GANGRENE SNOMED Code(s): 901954819 (4) SBO (small bowel obstruction) Current Visit: Yes Status: Acute Code(s): K56.609 - UNSP INTESTNL OBST, UNSP TO PARTIAL VERSUS COMPLETE OBST SNOMED Code(s): 807234138 (5) Ventral hernia Current Visit: Yes Status: Acute Code(s): K43.9 - VENTRAL HERNIA WITHOUT OBSTRUCTION OR GANGRENE SNOMED Code(s): 335668497
[2020-03-22] MEDS: METHYL SALICYLATE/MENTHOL CREAM 5 OZ TOPICAL SCH ×2 (13:15→20:10)
[2020-03-22] MEDS ORDERED: Potassium Replacement Protocol 1 EACH MISC MISCELLANE PRN (14:58)
[2020-03-22] MEDS: POTASSIUM CHLORIDE ER 20 MEQ TAB.ER PO SCH ×2 (17:20→17:23)
--- NOTE | 2020-03-22 20:05 | PN ---
PROGRESS NOTE DATE OF SERVICE: 03/22/2020 This 75-year-old woman who was admitted after incarcerated hernia repair, is being closely monitored. The patient also has significant gait dysfunction, patient unable to walk. A venous Doppler was done because of the leg edema which showed no evidence of any DVT. Patient also had acute UTI. Patient started on IV antibiotics. Cultures are negative so far. PAST MEDICAL HISTORY: Reviewed. REVIEW OF SYSTEMS: CARDIOVASCULAR SYSTEM: No angina. RESPIRATORY: As mentioned earlier. GI: As mentioned earlier. : No dysuria, otherwise, as mentioned earlier. NERVOUS SYSTEM: Diffusely weak. CURRENT MEDICATIONS: 1. Tylenol. 2. Industry 5 mg. 3. Rocephin 1 g. 4. Colace. 5. Lovenox. 6. HydroDIURIL. 7. Dilaudid. 8. Zestril. 9. Replacement protocol. 10.Zofran. 11.Protonix. 12.K-Dur. 13.Ultram. PHYSICAL EXAM: Patient is alert, oriented x3. Pulse is 90, blood pressure 118/74, respiration 20, temperature 98.7, pulse ox 97% on room air. HEENT: Conjunctivae normal. Oral mucosa moist. NECK: No jugular venous distention. No lymph node enlargement. CARDIOVASCULAR: S1, S2, muffled. No S3, no S4, RESPIRATORY: Diminished breath sounds at the bases. A few scattered rhonchi and crackles. ABDOMEN: Soft, nontender. No mass palpable. LEGS: No edema, no swelling. NERVOUS SYSTEM: Higher functions mentioned earlier. Moves all four limbs. No focal motor or sensory deficits. LYMPHATICS: No lymph node in neck or axilla. SKIN: No rash. JOINTS: No active deforming arthropathy. LAB STUDIES: WBC 12.9, sodium 137, potassium 3.2. UA noted. Cultures are pending at this time. ASSESSMENT: 1. Incarcerated incisional hernia status post repair and partial omentectomy. 2. Pain management. 3. Gastroesophageal reflux disease. 4. Hypokalemia. 5. Severe gait dysfunction. 6. Acute urinary tract infection, on IV antibiotics. 7. Hypertension. 8. History of rheumatoid arthritis. 9. Obesity with body mass index of 44.1. 10.History of gastrointestinal bleed. 11.History of hernia. RECOMMENDATIONS AND DISCUSSION: In this 75-year-old woman who presented with multiple complex medical issues, we will monitor the patient closely, continue the current management and symptomatic treatment. Otherwise, at this time I recommend continue the current medications, continue the antibiotics, PT/OT evaluation, possible ECF rehab, closely follow with surgery. Guarded prognosis. Further recommendations to follow. GISELA / RANDY: [id number] /
[2020-03-23] MEDS: HYDROcodone/APAP 5-325MG 1 EACH TAB PO PRN ×3 (02:54→18:59)
[2020-03-23 07:21] LABS: Basophils % (A) 0 %; Eosinophils # (A) 0.2 k/uL (0-0.7); Eosinophils % (A) 2 %; HCT 34.1 % (34.0-46.0); HGB 11.3 gm/dL (11.4-16.0); Lymphocytes # (A) 1.3 k/uL (1.0-4.8); Lymphocytes % (A) 13 %; MCHC 33.1 g/dL (31.0-37.0); MCV 90.6 fL (80.0-100.0); Mean Platelet Volume 8.6; Monocytes # (A) 1.1 k/uL (0-1.0); Monocytes % (A) 10 %; Neutrophils # (A) 7.9 k/uL (1.3-7.7); Neutrophils % (A) 74 %; Platelet Count 216 k/uL (150-450); RBC 3.77 m/uL (3.80-5.40); RDW 13.1 % (11.5-15.5); WBC 10.7 k/uL (3.8-10.6)
[2020-03-23 07:34] LABS: African American GFR (CKD) >90 (>60 ml/min/1.73 sqM); Anion Gap 3 mmol/L; Blood Urea Nitrogen 11 mg/dL (7-17); Calcium 7.9 mg/dL (8.4-10.2); Carbon Dioxide 33 mmol/L (22-30); Chloride 98 mmol/L (98-107); Glucose 97 mg/dL (74-99); Non-African American GFR(CKD) >90 (>60 ml/min/1.73 sqM); Sodium 134 mmol/L (137-145)
[2020-03-23 07:40] LABS: Potassium 3.3 mmol/L (3.5-5.1)
[2020-03-23] MEDS: ENOXAPARIN 40 MG/0.4 ML SYRINGE SQ SCH (07:50)
[2020-03-23] MEDS: DOCUSATE 100 MG CAP PO SCH ×2 (07:50→20:20)
[2020-03-23] MEDS: HYDROCHLOROTHIAZIDE 25 MG TAB PO SCH (07:50)
[2020-03-23] MEDS: LISINOPRIL 20 MG TAB PO SCH (07:51)
[2020-03-23] MEDS: PANTOPRAZOLE 40 MG/10 ML VIAL IVP SCH (07:51)
[2020-03-23] MEDS: METHYL SALICYLATE/MENTHOL CREAM 5 OZ TOPICAL SCH ×2 (09:17→19:00)
--- NOTE | 2020-03-23 11:05 | P.PN ---
Subjective Progress Note Date: 03/23/20 CHIEF COMPLAINT: Ventral hernia repair HISTORY OF PRESENT ILLNESS: The patient is a 75-year-old female status post mesh repair for small bowel obstruction 03/18/2020. She is postop day 5. She reports passing flatus. No bowel movement. No abdominal pain. Her pain is controlled. She is pending rehab for discharge. Diet was advanced to consistent carb. ROS: No reports of nausea and vomiting. No bowel movements. No fevers or chills. No new chest pain. No productive sputum PHYSICAL EXAM: VITAL SIGNS: Reviewed. T-max 99.9 CONSTITUTIONAL: Well developed and in no acute distress. EYES: Conjuctivae without sclera icterus. Extraocular movements grossly intact. HEAD, EARS, NOSE, THROAT: Moist buccal mucosa. Head is atraumatic, normocephalic. Hears conversational speech. No nasal drainage. NECK: Supple. No thyroidomegaly. RESPIRATORY: Non-labored respirations and equal bilateral excursions. CARDIOVASCULAR: Palpable 2+ radial pulses. ABDOMEN: Nontender. Dressing intact MUSCULOSKELETAL: No gross deformity of the lower extremities noted. No clubbing. No cyanosis. SKIN: Good skin turgor. Well perfused. NEUROLOGIC: Cranial nerves II through XII grossly intact. No focal or la teralizing signs. PSYCH: Appropriate affect. Alert and oriented to person, place and time. CLINICAL LABS: WBC trending down 11.9-12.9, now 10.9. Potassium low 3.3. Urinalysis positive for UTI ASSESSMENT: 1. Incarcerated hernia with small bowel obstruction PLAN: 1. Milk of magnesia for constipation 2. Advance diet as tolerated 3. Stable for discharge from surgical standpoint when medically stable Objective - Vital Signs Vital signs: Vital Signs Temp 97.9 F 03/23/20 05:10 Pulse 68 03/23/20 05:10 Resp 18 03/23/20 05:10 BP 112/59 03/23/20 05:10 Pulse Ox 95 03/23/20 05:10 Intake & Output 03/22/20 03/23/20 03/23/20 18:59 06:59 18:59 Intake Total 540 Output Total 20 Balance 520 Intake: Oral 540 Output: Drainage 20 Left Abdomen 20 Other: Voiding Method Bedpan Bedpan Diaper Diaper Incontinent Incontinent # Voids 4 2 - Labs CBC & Chem 7: 03/23/20 05:58 03/23/20 05:58 Labs: Abnormal Lab Results - Last 24 Hours (Table) 03/23/20 03/23/20 Range/Units 05:58 05:58 WBC 10.7 H (3.8-10.6) k/uL RBC 3.77 L (3.80-5.40) m/uL Hgb 11.3 L (11.4-16.0) gm/dL Neutrophils # 7.9 H (1.3-7.7) k/uL Monocytes # 1.1 H (0-1.0) k/uL Sodium 134 L (137-145) mmol/L Potassium 3.3 L (3.5-5.1) mmol/L Carbon Dioxide 33 H (22-30) mmol/L Creatinine 0.45 L (0.52-1.04) mg/dL Calcium 7.9 L (8.4-10.2) mg/dL Microbiology - Last 24 Hours (Table) 03/21/20 21:37 Urine Culture - Preliminary Urine,Catheterized Gram Neg Bacilli Gram Neg Bacilli#2 Assessment and Plan (1) Morbid obesity due to excess calories Current Visit: Yes Status: Acute Code(s): E66.01 - MORBID (SEVERE) OBESITY DUE TO EXCESS CALORIES SNOMED Code(s): 479082067 (2) Morbid obesity with BMI of 40.0-44.9, adult Current Visit: Yes Status: Acute Code(s): E66.01 - MORBID (SEVERE) OBESITY DUE TO EXCESS CALORIES; Z68.41 - BODY MASS INDEX (BMI) 40.0-44.9, ADULT SNOMED Code(s): 214060456 (3) Abdominal wall hernia Current Visit: Yes Status: Acute Code(s): K43.9 - VENTRAL HERNIA WITHOUT OBSTRUCTION OR GANGRENE SNOMED Code(s): 391373916 (4) SBO (small bowel obstruction) Current Visit: Yes Status: Acute Code(s): K56.609 - UNSP INTESTNL OBST, UNSP TO PARTIAL VERSUS COMPLETE OBST SNOMED Code(s): 495955534 (5) Ventral hernia Current Visit: Yes Status: Acute Code(s): K43.9 - VENTRAL HERNIA WITHOUT OBSTRUCTION OR GANGRENE SNOMED Code(s): 314846253
[2020-03-23] MEDS: MAGNESIUM HYDROXIDE 2,400 MG/10 ML CUP PO SCH ×2 (11:15→20:20)
[2020-03-23] MEDS: traMADol 50 MG TAB PO PRN (14:54)
[2020-03-23] MEDS: CALCIUM CARBONATE 500 MG CHEWABLE PO PRN (14:58)
--- NOTE | 2020-03-23 15:33 | XR ---
EXAMINATION TYPE: XR chest 1V portable DATE OF EXAM: 03/23/2020 COMPARISON: 02/05/2019 HISTORY: Short of breath TECHNIQUE: FINDINGS: There is slight elevated right diaphragm. There is no heart failure. Thoracic aorta is athe romatous. Heart is top normal in size. There is no definite pleural effusion. There is probably some linear density in the left lower lobe. IMPRESSION: Mild chronic elevation of the right diaphragm. No heart failure seen. Mild atelectasis le ft lung base. Inspiration decreased slightly compared to old exam.
--- NOTE | 2020-03-23 16:13 | PN ---
PROGRESS NOTE DATE OF SERVICE: 03/23/2020 This 75-year-old gentleman woman who was admitted after surgery is being closely monitored. Patient has significant gait dysfunction. Patient complaining of some shortness of breath. PT/OT evaluating the patient closely. Past medical history reviewed. REVIEW OF SYSTEMS: Cardiovascular: No angina or palpitations. Respiration: As mentioned earlier. GI as mentioned earlier. : No dysuria. NERVOUS SYSTEM: No numbness or weakness. CURRENT MEDICATIONS: Reviewed and include: 1. Tylenol. 2. [place] 5 mg. 3. Tums. 4. Rocephin 1 g. 5. Lovenox. 6. Hydrodiuril. 7. Dilaudid. 8. Zestril. 9. Milk of Magnesia. 10.Narcan. 11.Zofran. 12.Protonix. 13.Ultram. PHYSICAL EXAM: Patient is alert and oriented times three. Pulse 84, blood pressure 118/73, respirations 17, temperature 98 degrees, pulse ox 98% on 2 L. HEENT is conjunctivae normal. Oral mucosa moist. NECK is no jugular venous distention. CARDIOVASCULAR: S1, S2 muffled. RESPIRATIONS: Breath sounds diminished in the bases. ABDOMEN: Soft. Status post surgery. LEGS are no edema. No swelling. NERVOUS SYSTEM: No focal deficits. LABORATORY DATA: Sodium 130, potassium 3.3. WBC 10.2, hemoglobin 11.3. UA noted. ASSESSMENT: 1. Incarcerated incisional hernia status post repair and partial omentectomy. 2. Pain management. 3. Gastroesophageal reflux disease. 4. Urinary tract infection, present on admission. 5. Hypokalemia. 6. Hyponatremia. 7. Severe gait dysfunction. 8. Shortness of breath for evaluation. 9. Acute urinary tract infection, on IV antibiotics. 10.Hypertension. 11.Rheumatoid arthritis. 12.Obesity with body mass index 44.1. 13.History of gastrointestinal bleed. 14.History of hernia. RECOMMENDATIONS AND DISCUSSION: I recommend to continue current medications, and symptomatic treatment. Otherwise, at this time, I recommend a chest x-ray. Continue the antibiotics. Repeat labs. Replacement protocols. Prognosis guarded because of multiple complex medical issues. PT/OT evaluation, possible ECF rehab. MMODL / IJN: [id number] /
[2020-03-23] MEDS: PANTOPRAZOLE 40 MG TABLET PO SCH (18:59)
[2020-03-24] MEDS: HYDROcodone/APAP 5-325MG 1 EACH TAB PO PRN ×3 (01:04→18:16)
[2020-03-24] MEDS: CALCIUM CARBONATE 500 MG CHEWABLE PO PRN ×2 (01:04→18:16)
[2020-03-24 07:48] LABS: Basophils % (A) 0 %; Eosinophils # (A) 0.1 k/uL (0-0.7); Eosinophils % (A) 2 %; HCT 34.8 % (34.0-46.0); HGB 11.3 gm/dL (11.4-16.0); Lymphocytes # (A) 1.1 k/uL (1.0-4.8); Lymphocytes % (A) 12 %; MCH 29.2 pg (25.0-35.0); MCHC 32.6 g/dL (31.0-37.0); MCV 89.7 fL (80.0-100.0); Mean Platelet Volume 8.5; Monocytes % (A) 11 %; Neutrophils # (A) 6.7 k/uL (1.3-7.7); Neutrophils % (A) 74 %; Platelet Count 249 k/uL (150-450); RBC 3.88 m/uL (3.80-5.40); RDW 13.1 % (11.5-15.5); WBC 9.1 k/uL (3.8-10.6)
[2020-03-24 07:58] LABS: African American GFR (CKD) >90 (>60 ml/min/1.73 sqM); Anion Gap 6 mmol/L; Blood Urea Nitrogen 14 mg/dL (7-17); Calcium 7.9 mg/dL (8.4-10.2); Carbon Dioxide 36 mmol/L (22-30); Chloride 93 mmol/L (98-107); Glucose 99 mg/dL (74-99); Non-African American GFR(CKD) >90 (>60 ml/min/1.73 sqM); Potassium 3.1 mmol/L (3.5-5.1); Sodium 135 mmol/L (137-145)
[2020-03-24] MEDS: MAGNESIUM HYDROXIDE 2,400 MG/10 ML CUP PO SCH ×2 (08:11→19:58)
[2020-03-24] MEDS: LISINOPRIL 20 MG TAB PO SCH (08:11)
[2020-03-24] MEDS: HYDROCHLOROTHIAZIDE 25 MG TAB PO SCH (08:11)
[2020-03-24] MEDS: DOCUSATE 100 MG CAP PO SCH ×2 (08:11→19:58)
[2020-03-24] MEDS: PANTOPRAZOLE 40 MG TABLET PO SCH ×2 (08:11→19:58)
[2020-03-24] MEDS: METHYL SALICYLATE/MENTHOL CREAM 5 OZ TOPICAL SCH ×2 (08:11→19:59)
[2020-03-24] MEDS: ENOXAPARIN 40 MG/0.4 ML SYRINGE SQ SCH (08:11)
[2020-03-24] MEDS ORDERED: POTASSIUM CHLORIDE ER 20 MEQ TAB.ER PO STA (09:11)
--- NOTE | 2020-03-24 11:29 | P.PN ---
Progress Note - Text Progress Note Date: 03/24/20 Patient is resting comfortably bed. She describes back pain. She's not had vomiting. On exam vital signs are stable. Abdomen soft. Incision sites clean and intact. Status post repair of incarcerated incisional hernia. Patient will plan to be discharged home to rehab tomorrow.
--- NOTE | 2020-03-24 16:00 | P.PN ---
Subjective Progress Note Date: 03/24/20 Principal diagnosis: This is a 75-year-old female who was recently admitted status post repair of incarcerated incisional hernia and is being closely monitored. Following along closely with surgery. Patient is having gas and tolerating diet with no reports of vomiting noted. Patient denies any bowel movements at this time. Patient states she was having some back discomfort and instructed and encouraged patient to increase activity as tolerated and sit in the chair more often as she had been lying in the bed mostly. Patient denies any shortness of breath today and underwent a chest x-ray yesterday showing some mild atelectasis at the left lung base. Educated and instructed the patient to continue with the use of the incentive spirometer at least 10 times every hour while awake. Review of systems: Constitutional: Reports of fevers or chills Cardiovascular: Reports of chest pain or palpitations Respiratory: No reports of shortness of breath or cough GI: No reports of nausea or vomiting : No reports of dysuria or retention Neurovascular: Reports Generalized weakness, no reports of numbness Active Medications Acetaminophen (Tylenol Tab) 1,000 mg PO Q6H PRN PRN Reason: Pain Hydrocodone Bitart/Acetaminophen ([place] 5-325) 2 each PO Q6HR PRN PRN Reason: Moderate to Severe Pain Last Admin: 03/24/20 08:32 Dose: 2 each Documented by: Calcium Carbonate/Glycine (Tums) 500 mg PO QID PRN PRN Reason: Heartburn Last Admin: 03/24/20 01:04 Dose: 500 mg Documented by: Docusate Sodium (Colace) 100 mg PO BID [facility] Last Admin: 03/24/20 08:11 Dose: 100 mg Documented by: Enoxaparin Sodium (Lovenox) 40 mg SQ DAILY [facility] Last Admin: 03/24/20 08:11 Dose: 40 mg Documented by: Hydrochlorothiazide (Hydrodiuril) 25 mg PO DAILY [facility] Last Admin: 03/24/20 08:11 Dose: 25 mg Documented by: Hydromorphone HCl (Dilaudid) 1 mg IVP Q4HR PRN PRN Reason: Pain Last Admin: 03/21/20 21:45 Dose: 1 mg Documented by: Hydromorphone HCl (Dilaudid) 0.5 mg IVP Q3HR PRN PRN Reason: Moderate to Severe Pain Ceftriaxone Sodium 1 gm/ (Sodium Chloride) 50 mls @ 100 mls/hr IVPB Q24H [facility] Last Admin: 03/23/20 21:36 Dose: 100 mls/hr Documented by: Lisinopril (Zestril) 20 mg PO DAILY [facility] Last Admin: 03/24/20 08:11 Dose: 20 mg Documented by: Magnesium Hydroxide (Milk Of Magnesia) 2,400 mg PO BID [facility] Last Admin: 03/24/20 08:11 Dose: 2,400 mg Documented by: Methyl Salicylate (Thera-Gesic Cream) 1 applic TOPICAL BID [facility] Last Admin: 03/24/20 08:11 Dose: 1 applic Documented by: Miscellaneous Information (Potassium Per Protocol) 1 each MISCELLANE DAILY PRN; Protocol PRN Reason: Per Protocol Naloxone HCl (Narcan) 0.2 mg IV Q2M PRN PRN Reason: Opioid Reversal Ondansetron HCl (Zofran) 4 mg IVP Q6HR PRN PRN Reason: Nausea And Vomiting Last Admin: 03/18/20 20:29 Dose: 4 mg Documented by: Pantoprazole Sodium (Protonix) 40 mg PO BID [facility] Last Admin: 03/24/20 08:11 Dose: 40 mg Documented by: Tramadol HCl (Ultram) 50 mg PO Q6H PRN PRN Reason: Mild to Moderate Pain Last Admin: 03/23/20 14:54 Dose: 50 mg Documented by: Objective - Vital Signs Vital signs: Vital Signs Temp 99.7 F H 03/24/20 12:57 Pulse 63 03/24/20 12:57 Resp 16 03/24/20 12:57 BP 106/72 03/24/20 12:57 Pulse Ox 96 03/24/20 12:57 Intake & Output 03/23/20 03/24/20 03/24/20 18:59 06:59 18:59 Intake Total 50 Output Total 15 Balance 35 Weight 120.2 kg Intake: Intake, IV Titration 50 Amount cefTRIAXone 1 gm In 50 Sodium Chloride 0.9% 50 ml @ 100 mls/hr IVPB Q24H [facility] Rx#:[id number] Output: Drainage 15 Left Abdomen 15 Other: Voiding Method Bedside Commode Bedside Commode Bedside Commode Bedpan Bedpan Bedpan Diaper Diaper Diaper Incontinent Incontinent Incontinent # Voids 3 2 2 - Exam GENERAL: The patient is awake and oriented x3, not in any acute distress. Well developed, well nourished. Temp is 98.5F, pulse is 74, respirations are 18, blood pressure is 108/62, oxygen saturation is 94% on 2 L via nasal cannula. HEENT: Pupils are round and equally reacting to light. EOMI. No scleral icterus. No conjunctival pallor. Normocephalic, atraumatic. No pharyngeal erythema. No thyromegaly. CARDIOVASCULAR: S1 and S2 present. No murmurs, rubs, or gallops. PULMONARY: Diminished breath sounds bilaterally with no wheezing or crackles noted. ABDOMEN: Abdominal binder in place, sluggish bowel sounds MUSCULOSKELETAL: No joint swelling or deformity. EXTREMITIES: No cyanosis, clubbing, or pedal edema. NEUROLOGICAL: Gross neurological examination did not reveal any focal deficits. Diffusely weak SKIN: No rashes. - Labs CBC & Chem 7: 03/24/20 06:11 03/24/20 06:11 Labs: Abnormal Lab Results - Last 24 Hours (Table) 03/24/20 03/24/20 Range/Units 06:11 06:11 Hgb 11.3 L (11.4-16.0) gm/dL Sodium 135 L (137-145) mmol/L Potassium 3.1 L (3.5-5.1) mmol/L Chloride 93 L (98-107) mmol/L Carbon Dioxide 36 H (22-30) mmol/L Creatinine 0.50 L (0.52-1.04) mg/dL Calcium 7.9 L (8.4-10.2) mg/dL Microbiology - Last 24 Hours (Table) 03/21/20 21:37 Urine Culture - Final Urine,Catheterized Escherichia coli Proteus mirabilis Assessment and Plan Assessment: -Incarcerated incisional hernia, Status post repair and partial omentectomy -Pain management -Gastroesophageal reflux disease -Urinary tract infection, present on admission -Hypokalemia -Hyponatremia -Severe gait dysfunction -Shortness of breath for evaluation -Obesity with a body mass index of 44.1 -hypertension -Rheumatoid arthritis -History of GI bleed -History of hernia Plan: Continue current medications, management, and symptomatic treatment. Patient states she is passing gas but no bowel movements at this time. Will continue to follow along with surgery. Patient's potassium was 3.1 and will be replaced today. Will repeat a.m. labs. Patient is currently maintained on IV ceftriaxone and will continue at this time. Urine cultures finalized showing E. coli with Proteus mirabilis. Instructed the patient to continue with incentive spirometer at least 10 times every hour while awake and increase activity as tolerated. Further recommendations to follow. Anticipate discharge to ECF in 24 hours.
[2020-03-25] MEDS: CALCIUM CARBONATE 500 MG CHEWABLE PO PRN (01:22)
[2020-03-25 06:30] LABS: Basophils % (A) 0 %; Eosinophils # (A) 0.1 k/uL (0-0.7); Eosinophils % (A) 1 %; HCT 34.4 % (34.0-46.0); HGB 11.4 gm/dL (11.4-16.0); Lymphocytes # (A) 1.1 k/uL (1.0-4.8); Lymphocytes % (A) 12 %; MCH 29.9 pg (25.0-35.0); MCHC 33.2 g/dL (31.0-37.0); MCV 90.3 fL (80.0-100.0); Mean Platelet Volume 7.8; Monocytes # (A) 0.8 k/uL (0-1.0); Monocytes % (A) 9 %; Neutrophils # (A) 7.1 k/uL (1.3-7.7); Neutrophils % (A) 76 %; Platelet Count 282 k/uL (150-450); RBC 3.81 m/uL (3.80-5.40); WBC 9.4 k/uL (3.8-10.6)
[2020-03-25 06:41] LABS: African American GFR (CKD) >90 (>60 ml/min/1.73 sqM); Anion Gap 5 mmol/L; Blood Urea Nitrogen 15 mg/dL (7-17); Calcium 8.1 mg/dL (8.4-10.2); Carbon Dioxide 32 mmol/L (22-30); Chloride 96 mmol/L (98-107); Glucose 113 mg/dL (74-99); Non-African American GFR(CKD) >90 (>60 ml/min/1.73 sqM); Potassium 3.8 mmol/L (3.5-5.1); Sodium 133 mmol/L (137-145)
[2020-03-25] MEDS: HYDROCHLOROTHIAZIDE 25 MG TAB PO SCH (08:08)
[2020-03-25] MEDS: PANTOPRAZOLE 40 MG TABLET PO SCH (08:08)
[2020-03-25] MEDS: ENOXAPARIN 40 MG/0.4 ML SYRINGE SQ SCH (08:08)
[2020-03-25] MEDS: DOCUSATE 100 MG CAP PO SCH (08:08)
[2020-03-25] MEDS: LISINOPRIL 20 MG TAB PO SCH (08:08)
[2020-03-25] MEDS: HYDROcodone/APAP 5-325MG 1 EACH TAB PO PRN (08:09)
[2020-03-25] MEDS: MAGNESIUM HYDROXIDE 2,400 MG/10 ML CUP PO SCH (08:09)
[2020-03-25] MEDS: METHYL SALICYLATE/MENTHOL CREAM 5 OZ TOPICAL SCH (08:09)
--- NOTE | 2020-03-25 11:33 | P.DS ---
Providers Date of admission: 03/18/20 03:56 Expected date of discharge: 03/25/20 Attending physician: Mark Parsons Consults: 03/18/20 12:17 Consult Physician Routine Consulting Provider: Renata Hoffmann Consult Reason/Comments: Medical management Do you want consulting provider notified?: Yes Primary care physician: Yajaira Frost Hospital Course: This a 75-year-old female underwent open repair of incarcerated incisional hernia. Patient did well postoperatively. Please see hospital chart for details. Procedures: Open repair Of incarcerated incisional hernia Patient Condition at Discharge: Fair Plan - Discharge Summary Discharge Rx Participant: No New Discharge Prescriptions: New Cefuroxime Axetil [Ceftin] 500 mg PO BID 5 Days #10 tab Docusate [Colace] 100 mg PO BID cap Hydrochlorothiazide [Hydrodiuril] 25 mg PO DAILY tab Magnesium Hydroxide [Milk of Magnesia Concentrate] 2,400 mg PO BID ml Pantoprazole [Protonix] 40 mg PO BID tablet. Albuterol Inhaler [Ventolin Hfa Inhaler] 2 puff INHALATION RT-TID #1 puff Lisinopril [Zestril] 20 mg PO DAILY tab Continue Acetaminophen Tab [Tylenol] 1,000 mg PO Q6H PRN PRN Reason: Pain Calcium Carbonate/Vitamin D3 [Calcium 500-Vit D3 600 Tablet] 1 tab PO DAILY Discontinued Enalapril/Hydrochlorothiazide [Enalapril/Hydrochlorothiazide 10-25 mg Tablet] 1 tab PO DAILY Discharge Medication List Acetaminophen Tab [Tylenol] 1,000 mg PO Q6H PRN 02/05/19 [History] Calcium Carbonate/Vitamin D3 [Calcium 500-Vit D3 600 Tablet] 1 tab PO DAILY 03/18/20 [History] Albuterol Inhaler [Ventolin Hfa Inhaler] 2 puff INHALATION RT-TID #1 puff 03/24/20 [Rx] Cefuroxime Axetil [Ceftin] 500 mg PO BID 5 Days #10 tab 03/24/20 [Rx] Docusate [Colace] 100 mg PO BID cap 03/24/20 [Rx] Hydrochlorothiazide [Hydrodiuril] 25 mg PO DAILY tab 03/24/20 [Rx] Lisinopril [Zestril] 20 mg PO DAILY tab 03/24/20 [Rx] Magnesium Hydroxide [Milk of Magnesia Concentrate] 2,400 mg PO BID ml 03/24/20 [Rx] Pantoprazole [Protonix] 40 mg PO BID tablet. 03/24/20 [Rx] Follow up Appointment(s)/Referral(s): Yajaira Frost MD [Primary Care Provider] - 1-2 days Mark Parsons MD [STAFF PHYSICIAN] - 1 Week Activity/Diet/Wound Care/Special Instructions: Patient is going to [facility] Activity as tolerated Continue current diet Follow-up with primary care provider in the outpatient setting Follow-up with surgery in the outpatient setting Continue with antibiotics for 5 days then may discontinue Discharge Disposition: TRANSFER TO SNF/ECF
[2020-03-25 12:12] VITALS: BP 106/82; PULSE 91; RESP 16; TEMP 98.6
--- NOTE | 2020-03-25 12:37 | P.PN ---
Subjective Progress Note Date: 03/25/20 Principal diagnosis: This is a 75-year-old female who was recently admitted status post repair of incarcerated incisional hernia and is being closely monitored. Following along closely with surgery. Patient is having gas and tolerating diet with no reports of vomiting noted. Patient denies any bowel movements at this time. Patient states she was having some back discomfort and instructed and encouraged patient to increase activity as tolerated and sit in the chair more often as she had been lying in the bed mostly. Patient denies any shortness of breath today and underwent a chest x-ray yesterday showing some mild atelectasis at the left lung base. Educated and instructed the patient to continue with the use of the incentive spirometer at least 10 times every hour while awake. Review of systems: Constitutional: Reports of fevers or chills Cardiovascular: Reports of chest pain or palpitations Respiratory: No reports of shortness of breath or cough GI: No reports of nausea or vomiting : No reports of dysuria or retention Neurovascular: Reports Generalized weakness, no reports of numbness 03/25/2020 Patient is seen and evaluated in follow-up with no acute overnight issues. Patient states she had a bowel movement yesterday and is passing gas. She is to lerating diet with no reports of nausea or vomiting noted. Patient's urine culture is finalized showing E. coli along with Proteus mirabilis and will continue with oral Ceftin in the outpatient setting to complete the course. Currently patient denies any chest pain, shortness of breath, or palpitations. Patient is afebrile. Patient instructed to continue using incentive spirometer at least 10 times every hour while awake. Patient also instructed to increase activity as tolerated and continue working with physical therapy. Objective - Vital Signs Vital signs: Vital Signs Temp 98.6 F 03/25/20 12:11 Pulse 91 03/25/20 12:11 Resp 16 03/25/20 12:11 BP 106/82 03/25/20 12:11 Pulse Ox 95 03/25/20 12:11 Intake & Output 03/24/20 03/25/20 03/25/20 18:59 06:59 18:59 Output Total 100 Balance -100 Output: Urine 100 Other: Voiding Method Bedside Commode Bedside Commode Bedside Commode Bedpan Bedpan Diaper Diaper Diaper Incontinent Incontinent Incontinent # Voids 2 2 # Bowel Movements 1 - Exam GENERAL: The patient is awake and oriented x3, not in any acute distress. Well developed, well nourished. HEENT: Pupils are round and equally reacting to light. EOMI. No scleral icterus. No conjunctival pallor. Normocephalic, atraumatic. No pharyngeal erythema. No thyromegaly. CARDIOVASCULAR: S1 and S2 present. No murmurs, rubs, or gallops. PULMONARY: Diminished breath sounds bilaterally with no wheezing or crackles noted. ABDOMEN: Abdominal binder in place, Positive bowel sounds, nontender, obese MUSCULOSKELETAL: No joint swelling or deformity. EXTREMITIES: No cyanosis, clubbing, or pedal edema. NEUROLOGICAL: Gross neurological examination did not reveal any focal deficits. Diffusely weak SKIN: No rashes. - Labs CBC & Chem 7: 03/25/20 05:56 03/25/20 05:56 Labs: Abnormal Lab Results - Last 24 Hours (Table) 03/25/20 Range/Units 05:56 Sodium 133 L (137-145) mmol/L Chloride 96 L (98-107) mmol/L Carbon Dioxide 32 H (22-30) mmol/L Creatinine 0.49 L (0.52-1.04) mg/dL Glucose 113 H (74-99) mg/dL Calcium 8.1 L (8.4-10.2) mg/dL Assessment and Plan Assessment: -Incarcerated incisional hernia, Status post repair and partial omentectomy -Pain management -Gastroesophageal reflux disease -Urinary tract infection, present on admission -Hypokalemia -Hyponatremia -Severe gait dysfunction -Shortness of breath for evaluation -Obesity with a body mass index of 44.1 -hypertension -Rheumatoid arthritis -History of GI bleed -History of hernia Plan: Continue current medications, management, and symptomatic treatment. Patient is passing gas and having bowel movements as of last night. Will continue to follow along with surgery. Patient's potassium has improved today and is currently 3.8. Urine cultures finalized showing E. coli with Proteus mirabilis. Patient will continue on Ceftin 500 mg twice daily for the next 5 days to complete the course and then may discontinue.Instructed the patient to continue with incentive spirometer at least 10 times every hour while awake and increase activity as tolerated. Further recommendations to follow. Patient is being discharged to [facility] For continued PT/OT therapy today.
== END 2020-03-25 14:51 | DRG 354 ==
LOC: EC 01:37 → 5NMEDONC 03:56
PROVIDERS: ADMIT Surgery; ATTEND Surgery
PROC: 0DBU0ZZ Excision of Omentum, Open Approach (ICD-10-PCS; principal; 2020-03-18 09:35)
PROC: 0WQF0ZZ Repair Abdominal Wall, Open Approach (ICD-10-PCS; principal; 2020-03-18 09:35)
DX: K43.0 Incisional hernia with obstruction, without gangrene (principal); Z68.41 Body mass index [BMI] 40.0-44.9, adult; N39.0 Urinary tract infection, site not specified; E87.1 Hypo-osmolality and hyponatremia; I10 Essential (primary) hypertension; M06.9 Rheumatoid arthritis, unspecified; K21.9 Gastro-esophageal reflux disease without esophagitis; E66.01 Morbid (severe) obesity due to excess calories; R26.2 Difficulty in walking, not elsewhere classified; E87.6 Hypokalemia; Z96.1 Presence of intraocular lens; Z96.653 Presence of artificial knee joint, bilateral; Z11.59 Encounter for screening for other viral diseases; Z82.49 Family history of ischemic heart disease and other diseases of the circulatory system; Z98.49 Cataract extraction status, unspecified eye; Z88.1 Allergy status to other antibiotic agents; Z88.0 Allergy status to penicillin
CPT/HCPCS: 36415; 71045; 71275; 74018; 74177; 80048; 80053; 81001; 82150; 83605; 83690; 85025; 87077; 87086; 87186; 88302; 93005; 96361; 96372; 96374; 96375; 96376; 99285

== ENCOUNTER 2020-04-15 12:31 | Observation (INO) | payer MEDICARE ==
[2020-04-15] MEDS ORDERED: SODIUM CHLORIDE 0.9% 1,000 ML IV STA ×2 (12:49→13:08)
[2020-04-15] MEDS ORDERED: PANTOPRAZOLE 40 MG/10 ML VIAL IVP STA (12:49)
[2020-04-15] MEDS ORDERED: IOPAMIDOL CONTRAST (ORAL USE) VIAL PO PRN (12:49)
--- NOTE | 2020-04-15 12:54 | ED ---
General Adult HPI - General Chief complaint: Abdominal Pain Stated complaint: Surgical Wound Time Seen by Provider: 04/15/20 12:36 Source: patient, EMS, RN notes reviewed Mode of arrival: EMS Limitations: no limitations - History of Present Illness Initial comments: Patient is a pleasant 75-year-old female presenting to the emergency Department with complaints of abdominal discomfort. Patient did have hernia surgery a few weeks ago. Patient states the last day or so her discomfort has started to return. Discomfort is similar to the discomfort she had just before and after surgery. Patient also has a small amount of wound dehiscence in the lower abdomen. Patient states earlier she was having some mild shortness of breath however that was short-lived. Patient did have some mild indigestion as well. Both of those symptoms have resolved however abdominal discomfort continues. Patient does not want pain medication at this time. - Related Data Home Medications Medication Instructions Recorded Confirmed Acetaminophen Tab [Tylenol] 1,000 mg PO Q6H PRN 02/05/19 03/18/20 Calcium Carbonate/Vitamin D3 1 tab PO DAILY 03/18/20 03/18/20 [Calcium 500-Vit D3 600 Tablet] Previous Rx's Medication Instructions Recorded Albuterol Inhaler [Ventolin Hfa 2 puff INHALATION RT-TID #1 puff 03/24/20 Inhaler] Cefuroxime Axetil [Ceftin] 500 mg PO BID 5 Days #10 tab 03/24/20 Docusate [Colace] 100 mg PO BID cap 03/24/20 Magnesium Hydroxide [Milk of 2,400 mg PO BID ml 03/24/20 Magnesia Concentrate] Pantoprazole [Protonix] 40 mg PO BID tablet. 03/24/20 hydroCHLOROthiazide [Hydrodiuril] 25 mg PO DAILY tab 03/24/20 lisinopriL [Zestril] 20 mg PO DAILY tab 03/24/20 Allergies Allergy/AdvReac Type Severity Reaction Status Date / Time amoxicillin Allergy Rash/Hives Verified 04/15/20 12:32 Penicillins Allergy Rash/Hives Verified 04/15/20 12:32 Review of Systems ROS Statement: Those systems with pertinent positive or pertinent negative responses have been documented in the HPI. ROS Other: All systems not noted in ROS Statement are negative. Constitutional: Denies: fever Eyes: Denies: eye pain ENT: Denies: throat pain Respiratory: Reports: as per HPI Cardiovascular: Reports: as per HPI Endocrine: Denies: fatigue Gastrointestinal: Reports: abdominal pain. Denies: vomiting Genitourinary: Denies: dysuria Musculoskeletal: Denies: back pain Skin: Denies: rash Neurological: Denies: weakness Past Medical History Past Medical History: GERD/Reflux, GI Bleed, Hypertension, Rheumatoid Arthritis (RA) Additional Past Medical History / Comment(s): hernia History of Any Multi-Drug Resistant Organisms: None Reported Past Surgical History: Hernia Repair, Joint Replacement Additional Past Surgical History / Comment(s): viola knee, cataract sx with lens, bleeding ulcer sx Past Anesthesia/Blood Transfusion Reactions: No Reported Reaction Past Psychological History: No Psychological Hx Reported Smoking Status: Former smoker Past Alcohol Use History: None Reported Past Drug Use History: None Reported - Past Family History Mother Additional Family Medical History / Comment(s): a. fib, hip replaced General Exam Limitations: no limitations General appearance: alert, in no apparent distress Head exam: Present: normocephalic Eye exam: Present: normal appearance Neck exam: Present: normal inspection Respiratory exam: Present: normal lung sounds bilaterally. Absent: chest wall tenderness Cardiovascular Exam: Present: regular rate, normal rhythm Expanded Peripheral pulses: 2+: Dorsalis Pedis (R), Dorsalis Pedis (L) GI/Abdominal exam: Present: soft, tenderness (Mild to moderate tenderness mid abdomen), other (Surgical abdominal incision. Upper three quarters looks well. Lower 3-4 cm with dehiscence.). Absent: distended Extremities exam: Present: normal inspection. Absent: pedal edema, calf tenderness Neurological exam: Present: alert Psychiatric exam: Present: normal affect, normal mood Skin exam: Present: normal color Course Vital Signs 04/15/20 04/15/20 04/15/20 12:33 13:05 13:59 Temperature 98.2 F Pulse Rate 72 93 60 Respiratory 16 16 16 Rate Blood Pressure 95/61 104/93 111/64 O2 Sat by Pulse 93 L 97 97 Oximetry 04/15/20 14:40 Temperature Pulse Rate 84 Respiratory 16 Rate Blood Pressure 112/68 O2 Sat by Pulse 97 Oximetry Medical Decision Making - Medical Decision Making Case was discussed in detail with Dr. Parsons, who will admit his patient with IV Levaquin and Flagyl. Patient reevaluated and resting comfortably in bed. Patient updated. - Lab Data Result diagrams: 04/15/20 13:05 04/15/20 13:05 Lab Results 04/15/20 04/15/20 04/15/20 Range/Units 13:05 13:05 13:05 WBC 7.7 (3.8-10.6) k/uL RBC 4.28 (3.80-5.40) m/uL Hgb 12.2 (11.4-16.0) gm/dL Hct 37.6 (34.0-46.0) % MCV 87.9 (80.0-100.0) fL MCH 28.5 (25.0-35.0) pg MCHC 32.4 (31.0-37.0) g/dL RDW 13.8 (11.5-15.5) % Plt Count 246 (150-450) k/uL Neutrophils % 66 % Lymphocytes % 23 % Monocytes % 8 % Eosinophils % 2 % Basophils % 1 % Neutrophils # 5.1 (1.3-7.7) k/uL Lymphocytes # 1.8 (1.0-4.8) k/uL Monocytes # 0.6 (0-1.0) k/uL Eosinophils # 0.1 (0-0.7) k/uL Basophils # 0.1 (0-0.2) k/uL PT 10.6 (9.0-12.0) sec INR 1.0 (<1.2) APTT 24.4 (22.0-30.0) sec Sodium 138 (137-145) mmol/L Potassium 3.7 (3.5-5.1) mmol/L Chloride 105 (98-107) mmol/L Carbon Dioxide 24 (22-30) mmol/L Anion Gap 9 mmol/L BUN 18 H (7-17) mg/dL Creatinine 0.58 (0.52-1.04) mg/dL Est GFR (CKD-EPI)AfAm >90 (>60 ml/min/1.73 sqM) Est GFR (CKD-EPI)NonAf >90 (>60 ml/min/1.73 sqM) Glucose 106 H (74-99) mg/dL Calcium 9.2 (8.4-10.2) mg/dL Total Bilirubin 0.7 (0.2-1.3) mg/dL AST 24 (14-36) U/L ALT 11 (4-34) U/L Alkaline Phosphatase 44 (38-126) U/L Troponin I (0.000-0.034) ng/mL Total Protein 6.3 (6.3-8.2) g/dL Albumin 3.5 (3.5-5.0) g/dL Amylase 43 (30-110) U/L Lipase 74 (23-300) U/L // Range/Units 13:05 WBC (3.8-10.6) k/uL RBC (3.80-5.40) m/uL Hgb (11.4-16.0) gm/dL Hct (34.0-46.0) % MCV (80.0-100.0) fL MCH (25.0-35.0) pg MCHC (31.0-37.0) g/dL RDW (11.5-15.5) % Plt Count (150-450) k/uL Neutrophils % % Lymphocytes % % Monocytes % % Eosinophils % % Basophils % % Neutrophils # (1.3-7.7) k/uL Lymphocytes # (1.0-4.8) k/uL Monocytes # (0-1.0) k/uL Eosinophils # (0-0.7) k/uL Basophils # (0-0.2) k/uL PT (9.0-12.0) sec INR (<1.2) APTT (22.0-30.0) sec Sodium (137-145) mmol/L Potassium (3.5-5.1) mmol/L Chloride (98-107) mmol/L Carbon Dioxide (22-30) mmol/L Anion Gap mmol/L BUN (7-17) mg/dL Creatinine (0.52-1.04) mg/dL Est GFR (CKD-EPI)AfAm (>60 ml/min/1.73 sqM) Est GFR (CKD-EPI)NonAf (>60 ml/min/1.73 sqM) Glucose (74-99) mg/dL Calcium (8.4-10.2) mg/dL Total Bilirubin (0.2-1.3) mg/dL AST (14-36) U/L ALT (4-34) U/L Alkaline Phosphatase (38-126) U/L Troponin I <0.012 (0.000-0.034) ng/mL Total Protein (6.3-8.2) g/dL Albumin (3.5-5.0) g/dL Amylase (30-110) U/L Lipase (23-300) U/L - Radiology Data Radiology results: report reviewed (Computed tomography scan of chest shows no evidence of pulmonary embolism. Computed tomography scan of abdomen and pelvis has concern for possible abscess sinus tract in the skin. Cholelithiasis and pelvic tumor are stable.) Disposition Clinical Impression: Abdominal abscess Disposition: ADMITTED IP TO THIS HOSP Is patient prescribed a controlled substance at d/c from ED?: No Referrals: Yajaira Frost MD [Primary Care Provider] - 1-2 days Decision Time: 15:01
[2020-04-15] MEDS ORDERED: MORPHINE SULFATE 2 MG/ML SYRINGE IVP STA (13:08)
[2020-04-15 13:20] LABS: Basophils # (A) 0.1 k/uL (0-0.2); Basophils % (A) 1 %; Eosinophils # (A) 0.1 k/uL (0-0.7); Eosinophils % (A) 2 %; HCT 37.6 % (34.0-46.0); HGB 12.2 gm/dL (11.4-16.0); Lymphocytes # (A) 1.8 k/uL (1.0-4.8); Lymphocytes % (A) 23 %; MCH 28.5 pg (25.0-35.0); MCHC 32.4 g/dL (31.0-37.0); MCV 87.9 fL (80.0-100.0); Mean Platelet Volume 8.2; Monocytes # (A) 0.6 k/uL (0-1.0); Monocytes % (A) 8 %; Neutrophils # (A) 5.1 k/uL (1.3-7.7); Neutrophils % (A) 66 %; Platelet Count 246 k/uL (150-450); RBC 4.28 m/uL (3.80-5.40); RDW 13.8 % (11.5-15.5); WBC 7.7 k/uL (3.8-10.6)
[2020-04-15 13:28] LABS: ALT 11 U/L (4-34); AST 24 U/L (14-36); African American GFR (CKD) >90 (>60 ml/min/1.73 sqM); Albumin 3.5 g/dL (3.5-5.0); Alkaline Phosphatase 44 U/L (38-126); Amylase 43 U/L (30-110); Anion Gap 9 mmol/L; Blood Urea Nitrogen 18 mg/dL (7-17); Calcium 9.2 mg/dL (8.4-10.2); Carbon Dioxide 24 mmol/L (22-30); Chloride 105 mmol/L (98-107); Glucose 106 mg/dL (74-99); Non-African American GFR(CKD) >90 (>60 ml/min/1.73 sqM); Potassium 3.7 mmol/L (3.5-5.1); Sodium 138 mmol/L (137-145); Total Bilirubin 0.7 mg/dL (0.2-1.3); Total Protein 6.3 g/dL (6.3-8.2)
[2020-04-15] MEDS ORDERED: MORPHINE SULFATE 4 MG/ML SYRINGE ONE (13:28)
[2020-04-15 13:31] LABS: Partial Thromboplastin Time 24.4 sec (22.0-30.0); Prothrombin Time 10.6 sec (9.0-12.0)
--- NOTE | 2020-04-15 14:27 | CT ---
EXAMINATION TYPE: CT abdomen pelvis w con, CT angio chest DATE OF EXAM: 04/15/2020 COMPARISON: CT 03/18/2020 HISTORY: Dyspnea and belly pain (accession [id number]), Dyspnea (accession [id number]) CT DLP: 1660.5 (accession [id number]), 759.1 (accession [id number]) mGycm Automated exposure control for dose reduction was used. TECHNIQUE: Helical acquisition of images from the chest through the pelvis have been completed. 3-di mensional reconstructions performed through the chest and alternate workstation. CONTRAST: Performed with Oral Contrast and with IV Contrast, patient injected with 100 mL of Isovue 300. FINDINGS: No filling defect within the pulmonary arteries to suggest pulmonary embolism. No mediastin al, axillary, or hilar adenopathy. Subxiphoid region shows a large anterior abdominal wall hernia con taining bowel loops but no evident bowel obstruction. More inferiorly there is been interval repair o f the large anterior abdominal wall hernia, there is some residual hernia present at the superior mar gin. Within the subcutaneous fat there is abnormal increased attenuation suggestive of local phlegmon , there is an open wound at this level, anterior to the abdominal wall there is a small focus of flui d present with associated air measuring 3.2 cm in diameter by 2.5 cm in AP dimension, there may be a sinus tract extending towards the skin surface from this level, findings suggest an abscess. There ma y be some local fat necrosis present. LUNG BASES: No significant abnormality is appreciated. AORTA: Proximal descending aorta is 3.1 cm. LIVER/GB: Gallstones again noted within the gallbladder, liver is stable. PANCREAS: No significant abnormality is seen. SPLEEN: No significant abnormality is seen. ADRENALS: No significant abnormality is seen. KIDNEYS: No significant abnormality is seen. REPRODUCTIVE ORGANS: No significant double change is seen him a large adnexal mass again seen BOWEL: No significant abnormality is seen. FREE AIR: No Free Air visible. ASCITES: None visible. PELVIC ADENOPATHY: None visualized. RETROPERITONEAL ADENOPATHY: No Retroperitoneal Adenopathy visible. URINARY BLADDER: No significant abnormality is seen. OSSEOUS STRUCTURES: No significant abnormality is seen. IMPRESSION: THERE IS NO SIGNIFICANT INTERVAL CHANGE IN THE CHEST, NO EVIDENT PULMONARY EMBOLISM. INTERVAL REPAIR OF PATIENT'S ABDOMINAL HERNIA WITH PROBABLE ABSCESS WITH SINUS TRACT TO THE SKIN. CHOLELITHIASIS AND PELVIC TUMOR ARE STABLE.
[2020-04-15] MEDS ORDERED: LEVOFLOXACIN 750MG-D5W PMX 750 MG in DEXTROSE/WATER 1 150ML.BAG IVPB STA (14:59)
[2020-04-15] MEDS ORDERED: NALOXONE 0.4 MG/ML 1 ML VIAL IV PRN (15:01)
[2020-04-15 15:25] LABS: Appearance,Urine Clear (Clear); Bacteria,Urine Rare /hpf; Bilirubin,Urine Negative (Negative); Blood,Urine Negative (Negative); Color,Urine Yellow; Glucose,Urine (UA) Negative (Negative); Hyaline Casts,Urine 7 /lpf (0-2); Ketones,Urine Negative (Negative); Leukocyte Esterase,Urine Trace (Negative); Mucus,Urine Rare /hpf; Nitrite,Urine Negative (Negative); PH, Urine 5.5 (5.0-8.0); Protein,Urine Negative (Negative); RBC,Urine <1 /hpf (0-5); Specific Gravity,Urine 1.039 (1.001-1.035); Squamous Epithelial Cell,Urine 1 /hpf (0-4); Urobilinogen,Urine <2.0 mg/dL (<2.0); WBC,Urine 2 /hpf (0-5)
[2020-04-15] MEDS: metroNIDAZOLE-NS PMX 500 MG in SALINE 1 100ML.BAG IVPB SCH ×2 (17:12→23:23)
[2020-04-15] MEDS: SODIUM CHLORIDE 0.9% 1,000 ML IV SCH ×2 (17:13→23:21)
--- NOTE | 2020-04-15 17:15 | P.GSHP ---
History of Present Illness H&P Date: 04/15/20 Chief Complaint: Abdominal wall wound Is a 75-year-old female well-known to myself. Patient underwent recent repair of incarcerated incisional hernia. Patient Johanne small postoperative wound infection. She understood was removed. Patient currently receiving local wound care. Patient's CAT scan suggestive of a phlegmon in the area. Past Medical History Past Medical History: GERD/Reflux, GI Bleed, Hypertension, Rheumatoid Arthritis (RA) Additional Past Medical History / Comment(s): hernia History of Any Multi-Drug Resistant Organisms: None Reported Past Surgical History: Hernia Repair, Joint Replacement Additional Past Surgical History / Comment(s): viola knee, cataract sx with lens, bleeding ulcer sx Past Anesthesia/Blood Transfusion Reactions: No Reported Reaction Past Psychological History: No Psychological Hx Reported Smoking Status: Former smoker Past Alcohol Use History: None Reported Past Drug Use History: None Reported - Past Family History Mother Additional Family Medical History / Comment(s): a. fib, hip replaced Medications and Allergies Home Medications Medication Instructions Recorded Confirmed Type Acetaminophen Tab [Tylenol] 1,000 mg PO Q6H PRN 02/05/19 04/15/20 History Calcium Carbonate/Vitamin D3 1 tab PO DAILY 03/18/20 04/15/20 History [Calcium 500-Vit D3 600 Tablet] Docusate [Colace] 100 mg PO BID cap 03/24/20 04/15/20 Rx Pantoprazole [Protonix] 40 mg PO BID tablet. 03/24/20 04/15/20 Rx hydroCHLOROthiazide [Hydrodiuril] 25 mg PO DAILY tab 03/24/20 04/15/20 Rx lisinopriL [Zestril] 20 mg PO DAILY tab 03/24/20 04/15/20 Rx Potassium Chloride ER [K-Dur 10] 10 meq PO DAILY 04/15/20 04/15/20 History traMADol HCL 50 mg PO BID PRN 04/15/20 04/15/20 History Allergies Allergy/AdvReac Type Severity Reaction Status Date / Time amoxicillin Allergy Rash/Hives Verified 04/15/20 15:27 Penicillins Allergy Rash/Hives Verified 04/15/20 15:27 Surgical - Exam Vital Signs Temp Pulse Resp BP Pulse Ox 98.2 F 72 16 95/61 93 L 04/15/20 12:33 04/15/20 12:33 04/15/20 12:33 04/15/20 12:33 04/15/20 12:33 Morbid obese, BMI 41 - General well developed, well nourished - Eyes PERRL - ENT normal pinna - Neck no masses - Respiratory normal expansion - Cardiovascular Rhythm: regular - Abdomen At the lower aspect of the patient's wound there is a 3 cm opening of the skin were some taste fat is exposed. There is no significant infection. There is no significant pain or swelling in the area. Abdomen: soft, non tender Results - Labs 04/15/20 13:05 04/15/20 13:05 Abnormal Lab Results - Last 24 Hours (Table) 04/15/20 04/15/20 Range/Units 13:05 15:10 BUN 18 H (7-17) mg/dL Glucose 106 H (74-99) mg/dL Ur Specific [place] 1.039 H (1.001-1.035) Ur Leukocyte Esterase Trace H (Negative) Urine Bacteria Rare H (None) /hpf Hyaline Casts 7 H (0-2) /lpf Urine Mucus Rare H (None) /hpf Diabetes panel 04/15/20 Range/Units 13:05 Sodium 138 (137-145) mmol/L Potassium 3.7 (3.5-5.1) mmol/L Chloride 105 (98-107) mmol/L Carbon Dioxide 24 (22-30) mmol/L BUN 18 H (7-17) mg/dL Creatinine 0.58 (0.52-1.04) mg/dL Glucose 106 H (74-99) mg/dL Calcium 9.2 (8.4-10.2) mg/dL AST 24 (14-36) U/L ALT 11 (4-34) U/L Alkaline Phosphatase 44 (38-126) U/L Total Protein 6.3 (6.3-8.2) g/dL Albumin 3.5 (3.5-5.0) g/dL Calcium panel 04/15/20 Range/Units 13:05 Calcium 9.2 (8.4-10.2) mg/dL Albumin 3.5 (3.5-5.0) g/dL Pituitary panel 04/15/20 Range/Units 13:05 Sodium 138 (137-145) mmol/L Potassium 3.7 (3.5-5.1) mmol/L Chloride 105 (98-107) mmol/L Carbon Dioxide 24 (22-30) mmol/L BUN 18 H (7-17) mg/dL Creatinine 0.58 (0.52-1.04) mg/dL Glucose 106 H (74-99) mg/dL Calcium 9.2 (8.4-10.2) mg/dL Adrenal panel 04/15/20 Range/Units 13:05 Sodium 138 (137-145) mmol/L Potassium 3.7 (3.5-5.1) mmol/L Chloride 105 (98-107) mmol/L Carbon Dioxide 24 (22-30) mmol/L BUN 18 H (7-17) mg/dL Creatinine 0.58 (0.52-1.04) mg/dL Glucose 106 H (74-99) mg/dL Calcium 9.2 (8.4-10.2) mg/dL Total Bilirubin 0.7 (0.2-1.3) mg/dL AST 24 (14-36) U/L ALT 11 (4-34) U/L Alkaline Phosphatase 44 (38-126) U/L Total Protein 6.3 (6.3-8.2) g/dL Albumin 3.5 (3.5-5.0) g/dL Assessment and Plan Assessment: Local chronic wound infection. Patient will have silver dressing applied. We'll probably local wound care. She'll be observed.
[2020-04-15] MEDS: MORPHINE SULFATE 4 MG/ML SYRINGE IV PRN (20:51)
[2020-04-16] MEDS: MORPHINE SULFATE 4 MG/ML SYRINGE IV PRN (03:38)
[2020-04-16 04:07] VITALS: PULSE 73
[2020-04-16] MEDS: SODIUM CHLORIDE 0.9% 1,000 ML IV SCH (06:45)
[2020-04-16] MEDS: metroNIDAZOLE-NS PMX 500 MG in SALINE 1 100ML.BAG IVPB SCH (07:25)
[2020-04-16] MEDS: ACETAMINOPHEN TAB 325 MG TAB PO PRN ×2 (07:25→13:25)
[2020-04-16 07:28] VITALS: BP 120/70; RESP 16; TEMP 98.3
--- NOTE | 2020-04-16 11:07 | P.DS ---
Providers Date of admission: 04/15/20 15:02 Expected date of discharge: 04/16/20 Attending physician: Mark Parsons Consults: 04/15/20 17:15 Consult Physician Routine Consulting Provider: Renata Hoffmann Consult Reason/Comments: Medical management Do you want consulting provider notified?: Yes Primary care physician: Yajaira Frost [facility] Course: Is a 75-year-old female was admitted to hospital for a wound infection. Patient received local wound care. On the day of discharge patient felt well. Her abdomen was softer she is tolerating diet. Patient Condition at Discharge: Good Plan - Discharge Summary New Discharge Prescriptions: New Sulfamethox-Tmp 800-160Mg [Bactrim DS 800-160 mg] 1 tab PO Q12HR #14 tab No Action Acetaminophen Tab [Tylenol] 1,000 mg PO Q6H PRN PRN Reason: Pain Calcium Carbonate/Vitamin D3 [Calcium 500-Vit D3 600 Tablet] 1 tab PO DAILY Docusate [Colace] 100 mg PO BID cap hydroCHLOROthiazide [Hydrodiuril] 25 mg PO DAILY tab Pantoprazole [Protonix] 40 mg PO BID tablet. lisinopriL [Zestril] 20 mg PO DAILY tab Potassium Chloride ER [K-Dur 10] 10 meq PO DAILY traMADol HCL 50 mg PO BID PRN PRN Reason: Pain Discharge Medication List Acetaminophen Tab [Tylenol] 1,000 mg PO Q6H PRN 02/05/19 [History] Calcium Carbonate/Vitamin D3 [Calcium 500-Vit D3 600 Tablet] 1 tab PO DAILY 03/18/20 [History] Docusate [Colace] 100 mg PO BID cap 03/24/20 [Rx] Pantoprazole [Protonix] 40 mg PO BID tablet. 03/24/20 [Rx] hydroCHLOROthiazide [Hydrodiuril] 25 mg PO DAILY tab 03/24/20 [Rx] lisinopriL [Zestril] 20 mg PO DAILY tab 03/24/20 [Rx] Potassium Chloride ER [K-Dur 10] 10 meq PO DAILY 04/15/20 [History] traMADol HCL 50 mg PO BID PRN 04/15/20 [History] Sulfamethox-Tmp 800-160Mg [Bactrim DS 800-160 mg] 1 tab PO Q12HR #14 tab 04/16/20 [Rx] Follow up Appointment(s)/Referral(s): Yajaira Frost MD [Primary Care Provider] - 1-2 days Mark Parsons MD [STAFF PHYSICIAN] - 1 Week Discharge Disposition: HOME WITH HOME HEALTH SERVICES
[2020-04-16] MEDS ORDERED: LEVOFLOXACIN 750MG-D5W PMX 750 MG in DEXTROSE/WATER 1 150ML.BAG IVPB SCH (16:00)
[2020-04-16] MEDS ORDERED: LEVOFLOXACIN 750 MG TAB PO SCH (16:00)
[2020-04-16] MEDS ORDERED: metroNIDAZOLE 500 MG TAB PO SCH (16:00)
== END 2020-04-16 13:34 | disposition home health service (06) ==
LOC: EC 12:31 → 1SOBS 15:02
PROVIDERS: ADMIT Surgery; ATTEND Surgery
DX: T81.41XA Infection following a procedure, superficial incisional surgical site, initial encounter (principal); I10 Essential (primary) hypertension; L02.211 Cutaneous abscess of abdominal wall; M06.9 Rheumatoid arthritis, unspecified; Z79.899 Other long term (current) drug therapy; Z87.891 Personal history of nicotine dependence; T81.30XA Disruption of wound, unspecified, initial encounter; Z88.1 Allergy status to other antibiotic agents; Z88.0 Allergy status to penicillin; Z98.49 Cataract extraction status, unspecified eye; Z96.1 Presence of intraocular lens; Z96.653 Presence of artificial knee joint, bilateral; E66.01 Morbid (severe) obesity due to excess calories; Z68.41 Body mass index [BMI] 40.0-44.9, adult; Z03.818 Encounter for observation for suspected exposure to other biological agents ruled out
CPT/HCPCS: 96361 ×3; 96366 ×2; 96367; 96376 ×2; 96365; 96375; 99285; 36415; 80053; 82150; 83605; 83690; 84484; 85025; 85610; 85730; 81001; 87040; 71275; 74177; G0378 ×2; U0003; J2270 ×2; J1956; C9113; Q9967

== ENCOUNTER → 2021-04-27 | Outpatient (CLI) | payer MEDICARE ==
[2021-04-27 10:28] LABS: HCT 41.1 % (34.0-46.0); HGB 13.6 gm/dL (11.4-16.0); MCH 30.7 pg (25.0-35.0); MCHC 33.1 g/dL (31.0-37.0); MCV 92.8 fL (80.0-100.0); Mean Platelet Volume 8.9; Platelet Count 206 k/uL (150-450); RBC 4.43 m/uL (3.80-5.40); RDW 13.6 % (11.5-15.5); WBC 6.4 k/uL (3.8-10.6)
[2021-04-27 10:37] LABS: Partial Thromboplastin Time 24.6 sec (22.0-30.0); Prothrombin Time 10.4 sec (9.0-12.0)
[2021-04-27 10:45] LABS: ALT 9 U/L (4-34); AST 22 U/L (14-36); African American GFR (CKD) >90 (>60 ml/min/1.73 sqM); Albumin 3.9 g/dL (3.5-5.0); Alkaline Phosphatase 53 U/L (38-126); Anion Gap 6 mmol/L; Blood Urea Nitrogen 19 mg/dL (7-17); Calcium 9.9 mg/dL (8.4-10.2); Carbon Dioxide 29 mmol/L (22-30); Chloride 106 mmol/L (98-107); Glucose 104 mg/dL (74-99); Non-African American GFR(CKD) 85 (>60 ml/min/1.73 sqM); Phosphorus 4.1 mg/dL (2.5-4.5); Potassium 4.1 mmol/L (3.5-5.1); Sodium 141 mmol/L (137-145); Total Bilirubin 0.5 mg/dL (0.2-1.3); Total Protein 6.6 g/dL (6.3-8.2)
--- NOTE | 2021-04-27 13:31 | CT ---
EXAMINATION TYPE: CT abdomen pelvis wo con DATE OF EXAM: 04/27/2021 COMPARISON: 04/15/2020 HISTORY: 76-year-old female K56.609, intestinal obstruction, abdominal swelling CT DLP: 1676 mGycm. Automated exposure control for dose reduction was used. TECHNIQUE: Contiguous axial scanning of the abdomen and pelvis without IV contrast. Coronal and sagit vanessa reconstructions performed. FINDINGS: Heart upper limits of normal in size. LAD coronary artery calcifications are present. No pericardial effusion. Lung bases clear without pleural effusion. Small fat-containing left Bochdalek hernia. Noncontrast appearance of the liver, adrenal glands, spleen, kidneys, and mildly atrophic pancreas sh ow no gross abnormality. A few gallstones are present measuring up to 1.9 cm. The bladder is mildly hydropic measuring 4.9 cm wide but without any surrounding inflammation. Phrygian cap is noted. Redemonstrated supraumbilical ventral abdominal wall hernia containing the ileocolonic junction and p ortions of the transverse colon. Abdominal wall defect measures 9.3 cm wide and the hernia sac measur es 15.4 cm wide. (This is in comparison to 8.3 and 14.9 cm, respectively, previously). Some mild residual anterior bulging at the rectus diastases at the level of the umbilicus is unchange d measuring 7.8 cm wide and 8.3 cm greater caudal (axial image 88 and sagittal image 98). The infraum bilical previously seen abscess shows some residual scarring. No dilated small bowel, free fluid, or free air. No mesenteric or retroperitoneal lymphadenopathy. Proximal sigmoid diverticulosis without pericolonic inflammatory change. Bladder is collapsed. Multiple pelvic phleboliths. Uterus is present, obliqued towards the left. Ther e is a cystic mass within the right paramedian inferior pelvis measuring 8.4 cm with some layering fl uid and internal fat as well compatible with an ovarian dermoid, relatively stable compared to 8.0 cm , previously. No pelvic lymphadenopathy. BONES: Moderate degenerative change at the hips. Bilateral L5 pars defects with grade 2 anterolisthes is at L5-S1. Moderate to advanced spondylotic change throughout the lumbar spine with accentuated low er lumbar lordosis. IMPRESSION: 1. Supraumbilical ventral abdominal wall hernia containing the ileocolonic junction and portions of t he transverse colon is relatively similar with the hernia sac measuring 15.4 cm wide versus 14.9 cm, previously. Abdominal wall defect 9.3 cm wide versus 8.3 cm, previously. 2. The previous infraumbilical postsurgical change and abscess has healed. Mild bulging rectus diasta ses at the umbilical level is similar (7.8 cm wide x 8.3 cm craniocaudal). 3. No evidence for bowel obstruction. 3. Relatively stable right ovarian dermoid cyst measuring 8.4 cm versus 8.0 cm, previously. Consider [employer] referral for possible resection.
[2021-04-27 16:23] LABS: % Iron Saturation 23.79 (12.00-45.00); Chol/HDL Ratio 4.03; Cholesterol 153 mg/dL (0-200); Iron 74 ug/dL (50-170); LDL Cholesterol,Calculated 83.2 mg/dL (0.0-131.0); Total Iron Binding Capacity 311 ug/dL (228-460)
[2021-04-27 16:32] LABS: Ferritin 189.2 ng/mL (10.0-291.0)
[2021-04-27 16:34] LABS: Folate, Serum 17.4 ng/mL
[2021-04-27 18:02] LABS: Hemoglobin A1C 5.3 % (4.0-6.0)
[2021-04-28 13:01] LABS: Zinc, Serum 70 ug/dL (60-130)
[2021-04-29 06:03] LABS: Vitamin A 59 ug/dL (38-106)
[2021-04-29 06:24] LABS: Vit B1(Thiamine) 58 ug/L (38-122)
== END | disposition home or self-care (01) ==
LOC: RADCTMAIN 08:24
PROVIDERS: ATTEND Surgery Plastic and Reconstructive Surgery
DX: K56.609 Unspecified intestinal obstruction, unspecified as to partial versus complete obstruction (principal); K42.9 Umbilical hernia without obstruction or gangrene
CPT/HCPCS: 74176; 80053; 80061; 82306; 82525; 82607; 82728; 82746; 83036; 83540; 83550; 83735; 83970; 84100; 84134; 84255; 84425; 84443; 84590; 84630; 85027; 85610; 85730

== ENCOUNTER 2021-06-19 08:49 | Observation (INO) | payer MEDICARE ==
[2021-06-16 09:44] VITALS: BMI 41.3
--- NOTE | 2021-06-19 08:48 | P.GSHP ---
History of Present Illness H&P Date: 06/19/21 CHIEF COMPLAINT: Ventral hernia. HISTORY OF PRESENT ILLNESS: The patient is a 76-year-old female who presents with swelling along the abdomen for over 6 month with pain and tenderness. Findings were consistent with ventral hernia. Now she presents for further evaluation and management. PAST MEDICAL HISTORY: Please see list and reviewed. PAST SURGICAL HISTORY: Please see list and reviewed. MEDICATIONS: Please see list and reviewed. ALLERGIES: Please see list and reviewed. SOCIAL HISTORY: Please see list and reviewed. FAMILY HISTORY: No reports of Crohn disease or ulcerative colitis. REVIEW OF ORGAN SYSTEMS: CONSTITUTIONAL: No reports of fevers or chills. Has morbid obesity. GI: Denies any blood in stools or constipation. HEENT: Denies any trouble with vision, hearing or nosebleeds. No difficulty swallowing. LYMPHATIC: The patient denies any lumps and bumps around the neck. ENDOCRINE: Denies any thyroid disorders. Denies any blood sugar glucose intolerance. RESPIRATORY: Denies pneumonia. Denies any troubles with breathing or dyspnea on exertion. CARDIOVASCULAR: Denies recent chest pain, palpitations, or recent heart attacks. Has ischemic cardiomyopathy GENITOURINARY: Denies any blood in urine or increased urinary frequency. MUSCULOSKELETAL: Denies any back pain, stiffness, joint arthritis. NEUROLOGIC: Denies any numbness or tingling along the distal extremities. No seizure disorders or headaches. PSYCHIATRIC: Has depression. No suidical ideation. HEMATOLOGIC: Denies any abnormal bleeding or bruising. BREASTS: Denies any breast lumps, pain or nipple discharge. PHYSICAL EXAM: VITAL SIGNS: Stable GENERAL: Well-developed pleasant female in no acute distress. HEENT: No scleral icterus. Extraocular movements grossly intact. Moist buccal mucosa. NECK: Supple without lymphadenopathy. CHEST: Unlabored respirations. Equal bilateral excursions. CARDIOVASCULAR: Regular rate and rhythm. Distal 2+ pulses. ABDOMEN: Soft, nondistended. Tender along the abdomen. Protuberant. Large over 15-cm defect MUSCULOSKELETAL: No clubbing, cyanosis, or edema. SKIN: Well perfused. PSYCH: Alert and oriented. No focal or lateralizing signs. ASSESSMENT: 1. Ventral hernia. 2. Morbid obesity, BMI 41.3 3. Ischemic cardiomyopathy PLAN: 1. Recommend proceeding with robotic ventral hernia repair with mesh. 2. Benefits and risks of surgical intervention was discussed including possibility of open technique. 3. DVT prophylaxis. 4. Antibiotic prophylaxis. 5. She is elevated risk with BMI over 40 and cardiac disease Past Medical History Past Medical History: Hypertension, Osteoarthritis (OA), Rheumatoid Arthritis (RA) Additional Past Medical History / Comment(s): hernia, hx ulcer 1995, gallstones, urinary frequency History of Any Multi-Drug Resistant Organisms: None Reported Past Surgical History: Hernia Repair, Joint Replacement Additional Past Surgical History / Comment(s): viola cataract sx with lens, bleeding ulcer sx, viola knee replacement, "abdominal surgery"-not sure what was done, Past Anesthesia/Blood Transfusion Reactions: No Reported Reaction Smoking Status: Former smoker - Past Family History Mother Family Medical History: No Reported History Additional Family Medical History / Comment(s): . Medications and Allergies Home Medications Medication Instructions Recorded Confirmed Type Acetaminophen Tab [Tylenol] 1,000 mg PO BID PRN 02/05/19 06/16/21 History Cholecalciferol [Vitamin D3 (25 25 mcg PO DAILY 06/16/21 06/16/21 History Mcg = 1000 Iu)] Lisinopril-Hctz 20-25 mg 1 tab PO DAILY 06/16/21 06/16/21 History [Zestoretic 20-25] Vitamin B Complex 1 each PO DAILY 06/16/21 06/16/21 History Allergies Allergy/AdvReac Type Severity Reaction Status Date / Time amoxicillin Allergy Rash/Hives Verified 06/16/21 09:30 ibuprofen Allergy Rash/Hives/ Verified 06/16/21 09:30 ulcer Penicillins Allergy Rash/Hives Verified 06/16/21 09:30
[~2021-06-19 08:49] MED LIST: ACETAMINOPHEN TAB 500 MG TAB PO STA; DEXAMETHASONE SOD PHOSPHATE 4 MG/ML 1 ML VIAL IV ONE; GABAPENTIN 300 MG CAP PO STA; HEPARIN SODIUM,PORCINE/PF 5,000 UNIT/0.5 ML SYRINGE SQ PRN; LIDOCAINE 1% (10MG/ML) FOR IV START INTRADERMA PRN; ONDANSETRON 4 MG/2 ML VIAL IVP ONE; TAMSULOSIN 0.4 MG CAP.ER.24H PO STA
[2021-06-19] MEDS: LACTATED RINGERS 1,000 ML IV SCH (09:56)
[2021-06-19 09:58] LABS: Glucose,Whole Blood 87 mg/dL (75-99)
[2021-06-19] MEDS ORDERED: HYDROmorphone (PF) 1 MG/ML ONE (11:29)
[2021-06-19] MEDS ORDERED: LIDOCAINE 1% INJ 10MG/ML (20 ML MDV) ONE (11:29)
[2021-06-19] MEDS ORDERED: NEOSTIGMINE 1 MG/ML 10 ML VIAL ONE (11:29)
[2021-06-19] MEDS ORDERED: GLYCOPYRROLATE 0.2 MG/ML 2 ML VIAL ONE (11:29)
[2021-06-19] MEDS ORDERED: fentaNYL (PF) 50 MCG/ML 2 ML AMP ONE (11:29)
[2021-06-19] MEDS ORDERED: ePHEDrine SULFATE/0.9% NACL/PF 50 MG/5 ML SYRINGE IV ONE (11:29)
[2021-06-19] MEDS ORDERED: ROCURONIUM 10 MG/ML (5 ML VIAL) IV ONE (11:29)
[2021-06-19] MEDS ORDERED: SUCCINYLCHOLINE CHLORIDE 100 MG/5 ML SYR IV ONE (11:29)
[2021-06-19] MEDS ORDERED: PROPOFOL 10 MG/ML 20 ML VIAL IV ONE (11:29)
[2021-06-19] MEDS ORDERED: BUPIVACAINE (PF) 0.5% 30 ML VIAL SQ ONE ×2 (11:38→12:12)
[2021-06-19] MEDS ORDERED: LACTATED RINGERS 1,000 ML IV ONE (14:06)
[2021-06-19] MEDS ORDERED: diphenhydrAMINE 50 MG/ML 1 ML VIAL ONE (15:19)
[2021-06-19] MEDS ORDERED: diphenhydrAMINE 50 MG/ML 1 ML VIAL IVP ONE (15:22)
[2021-06-19] MEDS: HYDROmorphone 0.5 MG/0.5 ML SYRINGE IVP PRN ×2 (15:26→15:47)
[2021-06-19] MEDS ORDERED: HYDROmorphone 1 MG/ML 1 ML SYRINGE IVP PRN (15:33)
[2021-06-19] MEDS ORDERED: NALOXONE 0.4 MG/ML 1 ML VIAL IV PRN (15:33)
[2021-06-19] MEDS ORDERED: ONDANSETRON 4 MG/2 ML VIAL IVP PRN (15:33)
--- NOTE | 2021-06-19 15:40 | P.OP ---
Date of Procedure: 06/19/21 Description of Procedure: SURGEON: PORSHA REYNOLDS MD PREOPERATIVE DIAGNOSES: 1. Recurrent incisional ventral hernia with large bowel incarceration, transverse colon 2. Morbid obesity due to excess calories , BMI 42.3 3. Hypertensive heart disease 4. Rheumatoid arthritis POSTOPERATIVE DIAGNOSES: 1. Recurrent incisional ventral hernia with large bowel incarceration, transverse colon 2. Morbid obesity due to excess calories, BMI 42.3 3. Hypertensive heart disease 4. Rheumatoid arthritis 5. Intra-abdominal and peritoneal adhesions 6. Recurrent incisional ventral hernia with small bowel incarceration OPERATION: 1. Robotic-assisted daVinci Xi laparoscopic repair of recurrent incarcerated incisional involving transverse colon 9 cm x 7 cm upper abdomen with 15.2 cm circular mesh 2. Robotic-assisted daVinci Xi laparoscopic repair of recurrent incarcerated incisional involving small bowel 9 cm x 10 cm lower abdomen with 15.2 cm circular mesh 3. Robotic-assisted daVinci Xi laparoscopic extensive lysis of adhesions over 2 hours ANESTHESIA: General with local ESTIMATED BLOOD LOSS: 5 mL. SPECIMENS: None. COMPLICATIONS: None. Operative Findings: 1. Incarcerated small bowel along lower abdomen, 9 cm x 10 cm with small bowel incarceration and abdominal wall adhesions, reduced 2. Severe intra-abdominal adhesions upper abdomen involving transverse colon incarcerated 9 cm x 7 cm 3. Extensive lysis of adhesions over 2 hours robotic-assisted approach INDICATIONS: The patient is a 76-year-old female who presents with recurrent incisional ventral hernia of the upper and lower abdomen including intermittent bowel obstruction. Patient presented as high risk with obstetrician/gynecologist assessment obtained. Surgical intervention with laparoscopic versus robotic and open techniques were reviewed. Placement of mesh was also reviewed. Benefits and risks including but not limited to open approach, mesh placement, injury to the small bowel, bleeding, infection need for further surgery were thoroughly described. Informed consent was obtained. DESCRIPTION OF PROCEDURE: The patient was brought into the operating room and laid in supine position. After general induction, the abdomen had been prepped and draped in standard sterile fashion. Ioban draping was also placed. Prior to incision, a timeout protocol was confirmed with surgical team regarding the patient's name including procedures to be performed. The robot was primed prior to the procedure. A field block using local anesthetis was placed along hernia site including the proposed port sites. Initial incision was made with an #11 blade along the right upper quadrant as prior incision was found toward the left upper quadrant. A 0 degree 5 mm laparoscopic trocar entry was performed. Diagnostic laparoscopy demonstrated severe peritoneal adhesions along the upper abdomen and lower abdomen. Peritone al adhesions of small bowel to the abdominal wall along the lower midline was identified. Prior suture repair with failure was identified along the lower abdominal incision. Three 8 mm trocar were placed along the right lateral abdominal wall. The 5-mm port was exchanged for a 12 mm robotic port. Placements of the ports were 20 cm from the target anatomy and 10 cm apart. The da Curt XI robot was previously primed, prepped and draped then docked along the left side of the patient. I then sat at the robot Da Curt XI console where working arms of the robot including Bovie cautery connected to robotic scissors, needle hydraulic lift driver, vessel sealer and graspers placed by the assistant site manager. Adhesions along the lower midline were initially addressed with scissors and vessel sealer with reduction of the small bowel herniation. Attention was brought to the upper abdomen where the transverse colon was similarly freed using vessel sealer reduce into the abdomen. Extensive lysis of adhesions over 2 was performed using vessel sealer and scissors without enterotomy or colotomy. Two large incisional hernia defects were measured: upper abdomen 9 x 7 cm and lower abdomen 9 cm x 10 cm. The hernia bordering fascia was cleaned of peritoneal fat. Next, hemostasis was checked with cautery. The upper abdominal defect was addressed with near complete closure of the fascia and oversewn using nonabsorbable #1 VLOC with fascial imbrication 3. Ventral ST mesh circular 15 cm was prepared with rough side towards the abdominal wall and sewn to the abdominal wall using #1 Stratafix. The lower abdominal defect fascia was reduced in size using pursestring technique of #1 VLOC nonabsorbable. As the remaining defect after pursestring was 7 cm, bridging of the defect as an underlay was closed using ventral ST mesh. Ventral ST mesh circular 15 cm was prepared with rough side towards the abdominal wall and sewn to the abdominal wall using #1 Stratafix. The mesh was tacked to the abdominal wall using nonabsorbable #1 VLOC. A final endoscopic imaging was obtained. All instruments and pneumoperitoneum were evacuated from the abdominal cavity. The da Curt XI robot was undocked from the patient. I re-scrubbed into the case for closure of incisions. The incisions were reapproximated using 4-0 Monocryl in an interrupted subcuticular fashion. Liquid glue was applied to the skin. Redundant skin of the epigastrium was decompressed of air. Abdominal binder was placed. At the end of the procedure, needle, sponge, and instrument count had been verified correct by surgical asst. The patient was taken to the postanesthesia care unit in stable condition with abdominal binder. Plan - Discharge Summary Discharge Rx Participant: No New Discharge Prescriptions: Continue Vitamin B Complex 1 each PO DAILY Cholecalciferol [Vitamin D3 (25 Mcg = 1000 Iu)] 25 mcg PO DAILY Lisinopril-Hctz 20-25 mg [Zestoretic 20-25] 1 tab PO DAILY Discontinued Acetaminophen Tab [Tylenol] 1,000 mg PO BID PRN PRN Reason: Pain Discharge Medication List Cholecalciferol [Vitamin D3 (25 Mcg = 1000 Iu)] 25 mcg PO DAILY 06/16/21 [History] Lisinopril-Hctz 20-25 mg [Zestoretic 20-25] 1 tab PO DAILY 06/16/21 [History] Vitamin B Complex 1 each PO DAILY 06/16/21 [History] Follow up Appointment(s)/Referral(s): Porsha Reynolds MD [STAFF PHYSICIAN] - 06/30/21 (Telehealth available for TuesdayJune 23. Please contact office.) Patient Instructions/Handouts: *[facility] - Managing Your Pain After Surgery Without Opioids, Abdominal Binder (DC), Incisional Hernia (GEN) Activity/Diet/Wound Care/Special Instructions: DO NOT REMOVE UMBILICAL DRESSING. Using antibacterial soap. No lifting over 4 pounds 4 weeks, July 20January shower. No bathtub soaks for 2 weeks, July 03 Wear abdominal binder daily for comfort except for showering. Use ice along incisions for today to prevent swelling. Take tylenol, aleve/ibuprofen, simethicone scheduled for 3 days for best pain relief
[2021-06-19] MEDS ORDERED: ACETAMINOPHEN IV (For NPO) 1,000 MG/100 ML VIAL IVPB ONE (16:20)
[2021-06-19] MEDS ORDERED: ACETAMINOPHEN IV (For NPO) 1,000 MG in EMPTY BAG 1 BAG IVPB ONE (17:00)
[2021-06-19] MEDS: HYDROcodone/APAP 5-325MG 1 EACH TAB PO PRN (23:10)
[2021-06-19] MEDS: ACETAMINOPHEN TAB 325 MG TAB PO SCH (23:10)
[2021-06-20] MEDS: ACETAMINOPHEN TAB 325 MG TAB PO SCH ×4 (05:32→23:35)
[2021-06-20] MEDS: HYDROcodone/APAP 5-325MG 1 EACH TAB PO PRN ×2 (05:32→21:23)
[2021-06-20] MEDS: ENOXAPARIN 30 MG/0.3 ML SYRINGE SQ SCH (09:04)
[2021-06-20] MEDS: LISINOPRIL-HCTZ 20-25 MG 1 EACH TAB PO SCH (09:29)
--- NOTE | 2021-06-20 12:51 | P.PN ---
Progress Note - Text Progress Note Date: 06/20/21 Patient is complaining of some postoperative incisional pain. On exam vitals are stable. Abdomen soft. Incisions clean dry tach. Status post repair of hernia. Patient will be observed and may be discharged home tomorrow.
[2021-06-20] MEDS: LACTATED RINGERS 1,000 ML IV SCH (17:17)
[2021-06-20] MEDS ORDERED: LACTATED RINGERS 1,000 ML BAG IV ONE (23:59)
[2021-06-20] MEDS ORDERED: HYDROcodone/APAP 5-325MG 1 EACH TAB ONE ×2 (23:59)
[2021-06-21] MEDS: HYDROcodone/APAP 5-325MG 1 EACH TAB PO PRN ×4 (01:47→20:27)
[2021-06-21] MEDS: LACTATED RINGERS 1,000 ML IV SCH (04:52)
[2021-06-21] MEDS: ACETAMINOPHEN TAB 325 MG TAB PO SCH ×2 (05:21→09:51)
[2021-06-21] MEDS: LISINOPRIL-HCTZ 20-25 MG 1 EACH TAB PO SCH (07:59)
[2021-06-21] MEDS: ENOXAPARIN 30 MG/0.3 ML SYRINGE SQ SCH (08:58)
--- NOTE | 2021-06-21 12:21 | P.PN ---
Progress Note - Text Progress Note Date: 06/21/21 The patient is having difficulty getting out of bed. She is morbidly obese. Her BMI is 42. He takes 3 people to move her. On exam vital signs are stable. Abdomen is soft. Incisions clean dry tach. Status post repair of incisional hernia. Patient with PT consult place. She may require inpatient rehab prior to discharge home.
[2021-06-21] MEDS ORDERED: CALCIUM CARBONATE 500 MG CHEWABLE PO STA (15:47)
[2021-06-22] MEDS: HYDROcodone/APAP 5-325MG 1 EACH TAB PO PRN ×3 (00:50→12:40)
[2021-06-22] MEDS: LACTATED RINGERS 1,000 ML IV SCH (05:24)
[2021-06-22] MEDS: ENOXAPARIN 30 MG/0.3 ML SYRINGE SQ SCH (07:59)
[2021-06-22] MEDS: LISINOPRIL-HCTZ 20-25 MG 1 EACH TAB PO SCH (08:00)
--- NOTE | 2021-06-22 13:06 | P.DS ---
Providers Date of admission: 06/20/21 13:51 Expected date of discharge: 06/22/21 Attending physician: Porsha Reynolds Primary care physician: Yajaira Frost Hospital Course: Discharge diagnosis 1. Recurrent incisional ventral hernia with large bowel incarceration, transverse colon 2. Morbid obesity due to excess calories, BMI 42.3 3. Hypertensive heart disease 4. Rheumatoid arthritis 5. Intra-abdominal and peritoneal adhesions 6. Recurrent incisional ventral hernia with small bowel incarceration Hospital course The patient is a 76-year-old female who presents with recurrent incisional ventral hernia of the upper and lower abdomen including intermittent bowel obstruction. Patient is status post Robotic-assisted daVinci Xi laparoscopic repair of recurrent incarcerated incisional involving transverse colon 9 cm x 7 cm upper abdomen with 15.2 cm circular mesh, Robotic-assisted daVinci Xi laparoscopic repair of recurrent incarcerated incisional involving small bowel 9 cm x 10 cm lower abdomen with 15.2 cm circular mesh and Robotic-assisted daVinci Xi laparoscopic extensive lysis of adhesions. Patient tolerated surgery well. Her pain is controlled. She is a is having flatus. Denies any nausea or vomiting. She is tolerating diet. Patient is afebrile. She is stable for discharge. Patient will be discharged to [facility] for further rehabilitation. Physician [employer] note has been reviewed by physician. Signing provider agrees with the documented findings, assessment, and plan of care. Patient Condition at Discharge: Stable Plan - Discharge Summary Discharge Rx Participant: No New Discharge Prescriptions: New Acetaminophen Tab [Tylenol Tab] 1,000 mg PO Q6HR PRN #30 tablet PRN Reason: Pain Continue Vitamin B Complex 1 each PO DAILY Cholecalciferol [Vitamin D3 (25 Mcg = 1000 Iu)] 25 mcg PO DAILY Lisinopril-Hctz 20-25 mg [Zestoretic 20-25] 1 tab PO DAILY Discontinued Acetaminophen Tab [Tylenol] 1,000 mg PO BID PRN PRN Reason: Pain Discharge Medication List Cholecalciferol [Vitamin D3 (25 Mcg = 1000 Iu)] 25 mcg PO DAILY 06/16/21 [History] Lisinopril-Hctz 20-25 mg [Zestoretic 20-25] 1 tab PO DAILY 06/16/21 [History] Vitamin B Complex 1 each PO DAILY 06/16/21 [History] Acetaminophen Tab [Tylenol Tab] 1,000 mg PO Q6HR PRN #30 tablet 06/21/21 [Rx] Follow up Appointment(s)/Referral(s): Porsha Reynolds MD [STAFF PHYSICIAN] - 06/30/21 (Telehealth available for TuesdayJune 23. Please contact office.) Patient Instructions/Handouts: *[facility] - Managing Your Pain After Surgery Without Opioids, Abdominal Binder (DC), Incisional Hernia (GEN) Activity/Diet/Wound Care/Special Instructions: DO NOT REMOVE UMBILICAL DRESSING. Using antibacterial soap. No lifting over 4 pounds 4 weeks, July 20January shower. No bathtub soaks for 2 weeks, July 03 Wear abdominal binder daily for comfort except for showering. Use ice along incisions for today to prevent swelling. Take tylenol, aleve/ibuprofen, simethicone scheduled for 3 days for best pain relief Discharge Disposition: HOME SELF-CARE
[2021-06-22 13:58] VITALS: BP 136/80; PULSE 88; RESP 16; TEMP 98.3
== END 2021-06-22 15:54 | disposition home or self-care (01) ==
LOC: OR 08:49 → 6PED 15:05 → OR 06-20 13:51 → 4SSUR 06-20 21:22
PROVIDERS: ADMIT Surgery Plastic and Reconstructive Surgery; ATTEND Surgery Plastic and Reconstructive Surgery
DX: K43.0 Incisional hernia with obstruction, without gangrene (principal); E66.01 Morbid (severe) obesity due to excess calories; Z68.41 Body mass index [BMI] 40.0-44.9, adult; I11.9 Hypertensive heart disease without heart failure; M06.9 Rheumatoid arthritis, unspecified; K66.0 Peritoneal adhesions (postprocedural) (postinfection); K56.609 Unspecified intestinal obstruction, unspecified as to partial versus complete obstruction; I25.5 Ischemic cardiomyopathy; M19.90 Unspecified osteoarthritis, unspecified site; R35.0 Frequency of micturition; Z20.822 Contact with and (suspected) exposure to COVID-19; Z87.891 Personal history of nicotine dependence; Z87.11 Personal history of peptic ulcer disease; Z96.653 Presence of artificial knee joint, bilateral; Z79.899 Other long term (current) drug therapy; Z88.0 Allergy status to penicillin; Z88.8 Allergy status to other drugs, medicaments and biological substances
CPT/HCPCS: 49329; 49657; S2900; 87635

== ENCOUNTER → 2021-08-07 | Outpatient (CLI) | payer MEDICARE ==
--- NOTE | 2021-08-07 13:16 | US ---
EXAMINATION TYPE: US abdomen limited DATE OF EXAM: 08/07/2021 COMPARISON: CT 04/27/2021 CLINICAL HISTORY: 76-year-old female [id number] Other complications of procedures, not elsewhere classi fied, initial encounter. Cart Pusher notes: Multiple hernia surgeries, last one June 19. The lump that she has currently d eveloped after that. Technique: Targeted ultrasound examination of the patient's anterior abdominal wall at the palpable s ite. FINDINGS: Cart Pusher notes: Complex anechoic mass with septations measuring 6.7 x 3.6 x 8.1cm IMPRESSION: Complex fluid collection at the patient's palpable site, ventral abdominal wall, measuring up to 8.1 cm. A complex postoperative seroma or abscess are considerations. Clinically correlate.
== END | disposition home or self-care (01) ==
LOC: RADUSWWP 12:36
PROVIDERS: ATTEND Surgery Plastic and Reconstructive Surgery
DX: T81.89XA Other complications of procedures, not elsewhere classified, initial encounter (principal); Y82.9 Unspecified medical devices associated with adverse incidents
CPT/HCPCS: 76705

== ENCOUNTER 2023-01-01 12:02 | Inpatient (IN) | payer MEDICARE ==
[2023-01-01] MEDS ORDERED: ONDANSETRON 4 MG/2 ML VIAL IVP STA (12:30)
[2023-01-01] MEDS ORDERED: SODIUM CHLORIDE 0.9% 1,000 ML IV STA (12:30)
[2023-01-01] MEDS ORDERED: KETOROLAC 15 MG/ML 1 ML VIAL IVP STA (12:30)
[2023-01-01] MEDS ORDERED: PANTOPRAZOLE 40 MG/10 ML VIAL IVP STA (12:30)
[2023-01-01 13:27] LABS: Basophils % (A) 0 %; Eosinophils # (A) 0.1 k/uL (0-0.7); Eosinophils % (A) 1 %; HCT 42.8 % (34.0-46.0); Lymphocytes # (A) 1.3 k/uL (1.0-4.8); Lymphocytes % (A) 17 %; MCH 29.3 pg (25.0-35.0); MCHC 32.8 g/dL (31.0-37.0); MCV 89.3 fL (80.0-100.0); Mean Platelet Volume 8.6; Monocytes # (A) 0.5 k/uL (0-1.0); Monocytes % (A) 6 %; Neutrophils # (A) 5.6 k/uL (1.3-7.7); Neutrophils % (A) 74 %; Platelet Count 213 k/uL (150-450); RBC 4.79 m/uL (3.80-5.40); RDW 13.5 % (11.5-15.5); WBC 7.6 k/uL (3.8-10.6)
[2023-01-01 13:42] LABS: Prothrombin Time 10.3 sec (9.0-12.0)
[2023-01-01 13:43] LABS: ALT 16 U/L (4-34); AST 26 U/L (14-36); African American GFR (CKD) >90 (>60 ml/min/1.73 sqM); Albumin 4.1 g/dL (3.5-5.0); Alkaline Phosphatase 53 U/L (38-126); Amylase 49 U/L (30-110); Anion Gap 8 mmol/L; Blood Urea Nitrogen 16 mg/dL (7-17); Calcium 9.3 mg/dL (8.4-10.2); Carbon Dioxide 26 mmol/L (22-30); Chloride 105 mmol/L (98-107); Glucose 104 mg/dL (74-99); Lipase 42 U/L (23-300); Non-African American GFR(CKD) 89 (>60 ml/min/1.73 sqM); Potassium 4.1 mmol/L (3.5-5.1); Sodium 139 mmol/L (137-145); Total Bilirubin 0.7 mg/dL (0.2-1.3); Total Protein 7.2 g/dL (6.3-8.2)
--- NOTE | 2023-01-01 16:12 | CT ---
EXAMINATION TYPE: CT abdomen pelvis w con CT DLP: 2019.3 mGycm, Automated exposure control for dose reduction was used. DATE OF EXAM: 01/01/2023 3:26 PM COMPARISON: Abdominal ultrasound 08/07/2021, CT abdomen pelvis 04/27/2021 CLINICAL INDICATION:Female, 77 years old with history of abdominal pain; pain. TECHNIQUE: Axial CT of the abdomen and pelvis. Sagittal and coronal reformats were created on a [employer] workstation. Contrast used:100ml mL of Isovue 300 with IV Contrast, Oral contrast used: without Oral Contrast FINDINGS: LOWER CHEST: Bibasilar atelectasis most pronounced on the left. Mild cardiomegaly ABDOMEN LIVER: Unremarkable GALLBLADDER AND BILE DUCTS: Layering increased densities within the lumen consistent with gallstones are present. PANCREAS: Unremarkable. SPLEEN: Unremarkable. ADRENAL GLANDS: Unremarkable. KIDNEYS AND URETERS: No evidence of hydronephrosis or renal calculus. The ureters are unremarkable. PELVIS BLADDER: Unremarkable REPRODUCTIVE: Uterus appears atrophic. Right ovarian dermoid with fat fluid level measures 8.9 x 9.2 cm (series 201, image 77 and series 203, image 69). ABDOMEN & PELVIS STOMACH AND BOWEL: Stomach and duodenum are unremarkable. Ventral abdominal wall hernia extending single loop of small bowel. The neck measures 5.4 cm in width (series 201, image 60). Upstream bowel loops are dilated measuring up to 4.6 cm in width with fecalization of the contents. Distal small bow el loops are underdistended. No pneumatosis. Mild mesenteric fat stranding within the hernia sac. Col onic diverticulosis. PERITONEUM: Mild mesenteric fat stranding. No evidence for pneumoperitoneum or free fluid. VASCULATURE: Mild atherosclerotic calcifications are present throughout the abdominal aorta and its b ranches. No evidence of aortic aneurysm. MUSCULOSKELETAL: Scoliotic curvature of the lumbar spine with associated degenerative changes. Grade 1 anterolisthesis of L5 on S1. Generative changes of the hip joints bilaterally. LYMPH NODES: No gross evidence for lymphadenopathy. SOFT TISSUE/ABDOMINAL WALL: Rectus diastases. Ventral abdominal wall hernia containing small bowel lo ops as detailed above. Additional supra umbilical fat-containing ventral abdominal wall hernia, herni a neck measures less than 1 cm (series 203, image 58). Findings communicated to Dr. Pernell Whittington MD on 01/01/2023 4:[address] Tamera Andino. IMPRESSION: 1. Small bowel containing ventral abdominal wall hernia with extreme bowel dilatation concerning for obstruction. 2. Colonic diverticulosis. 3. Right ovarian dermoid, similar to prior. 4. Cholelithiasis and other incidental findings as detailed above.
[2023-01-01] MEDS ORDERED: MORPHINE SULFATE 4 MG/ML SYRINGE IVP STA (16:18)
--- NOTE | 2023-01-01 17:28 | ED ---
General Adult HPI - General Chief complaint: Abdominal Pain Stated complaint: ABD PAIN Time Seen by Provider: 01/01/23 12:15 Source: patient, EMS, RN notes reviewed, old records reviewed Mode of arrival: EMS Limitations: no limitations - History of Present Illness Initial comments: Patient is a 77-year-old female who presents emergency Department complaining of abdominal pain. She has a history of a ventral wall hernia, familiar to Dr. Reynolds. Last repair was in 2019. Presents emergency Department with abdominal pain since yesterday. States she has not had a bowel movement since then. Denies nausea or vomiting. Primary complaint is the pain. Denies any chest pain or shortness breath. Denies any fevers, chills, cough. Has no other acute complaints at this time. Presents for further evaluation. - Related Data Home Medications Medication Instructions Recorded Confirmed Cholecalciferol [Vitamin D3 (25 25 mcg PO DAILY 06/16/21 01/01/23 Mcg = 1000 Iu)] Lisinopril-Hctz 20-25 mg 1 tab PO DAILY 06/16/21 01/01/23 [Zestoretic 20-25] Acetaminophen [Tylenol Arthritis] 1,300 mg PO BID 01/01/23 01/01/23 Allergies Allergy/AdvReac Type Severity Reaction Status Date / Time amoxicillin Allergy Rash/Hives Verified 01/01/23 12:06 ibuprofen Allergy Rash/Hives/ Verified 01/01/23 12:06 ulcer Penicillins Allergy Rash/Hives Verified 01/01/23 12:06 Review of Systems ROS Statement: Those systems with pertinent positive or pertinent negative responses have been documented in the HPI. Review of Systems: CONST: Denies fever EYES: Denies blurry vision ENT: Denies nasal congestion C/V: Denies Chest pain RESP: Denies shortness of breath GI: Endorses abdominal pain : Denies dysuria SKIN: Denies rash. MSK: Denies joint pain. NEURO: Denies headache ROS Other: All systems not noted in ROS Statement are negative. Past Medical History Past Medical History: Hypertension, Osteoarthritis (OA), Rheumatoid Arthritis (RA) Additional Past Medical History / Comment(s): hernia, hx ulcer 1994, gallstones, urinary frequency History of Any Multi-Drug Resistant Organisms: None Reported Past Surgical History: Hernia Repair, Joint Replacement Additional Past Surgical History / Comment(s): viola cataract sx with lens, bleeding ulcer sx, viola knee replacement, "abdominal surgery"-not sure what was done, Past Anesthesia/Blood Transfusion Reactions: No Reported Reaction Past Psychological History: No Psychological Hx Reported Smoking Status: Former smoker Past Alcohol Use History: None Reported Past Drug Use History: None Reported - Past Family History Mother Family Medical History: No Reported History Additional Family Medical History / Comment(s): . General Exam - General Exam Comments Initial Comments: General: Appears in mild acute distress from abdominal discomfort. HEAD: Normal with no signs of head trauma. EYES: PERRLA, EOMI, conjunctiva normal, no discharge. ENT: Hearing grossly intact, normal oropharynx. RESPIRATORY: Clear breath sounds bilaterally. No wheezes, rales, or rhonchi. C/V: Regular rate and rhythm. S1 and S2 auscultated,peripheral pulses 2+ and intact throughout ABD: Abdomen is soft, distended over the site of prior ventral hernia repair. Concerned for protruding hernia. No concern for incarceration at this time. No skin changes. EXT: Normal range of motion, no obvious deformity SKIN: No rashes or lesions observed on exposed skin. NEURO: Alert and oriented 4. Limitations: no limitations Course Vital Signs 01/01/23 01/01/23 12:06 16:36 Temperature 98.6 F Pulse Rate 86 70 Respiratory 16 16 Rate Blood Pressure 172/99 127/77 O2 Sat by Pulse 97 95 Oximetry Medical Decision Making - Medical Decision Making Was pt. sent in by a medical professional or institution (, PA, CIGARETTE MACHINE OPERATOR, urgent care, hospital, or [place] health care facility...) When possible be specific @ -No Did you speak to anyone other than the patient for history (EMS, parent, family, police, friend...)? What history was obtained from this source @ -No Did you review nursing and triage notes (agree or disagree)? Why? @ -I reviewed and agree with nursing and triage notes Were old charts reviewed (outside hosp., previous admission, EMS record, old EKG, old radiological studies, urgent care reports/EKG's, [place] health care facility records)? Report findings @ -No old charts were reviewed Differential Diagnosis (chest pain, altered mental status, abdominal pain women, abdominal pain men, vaginal bleeding, weakness, fever, dyspnea, syncope, headache, dizziness, GI bleed, back pain, seizure, CVA, palpatations, mental health, musculoskeletal)? @ -Differential Abdominal Pain Women: Appendicitis, Cholecystitis, diverticulosis, ischemic bowel, pancreatitis, hepatitis, UTI, gastroenteritis, AAA, incarcerated hernia, bowel obstruction, constipation, inflammatory bowel, hepatitis, peptic ulcer disease, splenic inf arction, perforated viscus, vulvitis, ovarian torsion, PID, kidney stone, placenta abruption, this is not meant to be an all-inclusive list EKG interpreted by me (3pts min.). @ -As above X-rays interpreted by me (1pt min.). @ -None done CT interpreted by me (1pt min.). @ -CT reveals an abdominal wall hernia containing loops of small bowel. Was notified by radiology they're concerned for possible small bowel obstruction. No other acute findings. U/S interpreted by me (1pt. min.). @ -None done What testing was considered but not performed or refused? (CT, X-rays, U/S, labs)? Why? @ -None What meds were considered but not given or refused? Why? @ -None Did you discuss the management of the patient with other professionals (professionals i.e. , PA, CIGARETTE MACHINE OPERATOR, lab, RT, psych nurse, bilingual social worker, hose coupling joiner, teacher, parole hearing officer, caseworker protective services)? Give summary @ -No Was smoking cessation discussed for >3mins.? @ -No Was critical care preformed (if so, how long)? @ -No Were there social determinants of health that impacted care today? How? (Homelessness, low income, unemployed, alcoholism, drug addiction, transportation, low edu. Level, literacy, decrease access to med. care, half-way, rehab)? @ -No Was there de-escalation of care discussed even if they declined (Discuss DNR or withdrawal of care, Hospice)? DNR status @ -No What co-morbidities impacted this encounter? (DM, HTN, Smoking, COPD, CAD, Cancer, CVA, ARF, Chemo, Hep., AIDS, mental health diagnosis, sleep apnea, morbid obesity)? @ -History of prior ventral hernia repairs Was patient admitted / discharged? Hospital course, mention meds given and route, prescriptions, significant lab abnormalities, going to OR and other pertinent info. @ -Based on the patient's presentation and physical exam, I'm concerned for abdominal wall hernia. Does not appear incarcerated at this time. We will attempt to reduce the hernia but also obtain abdominal laboratory studies, screening EKG as well as a CT abdomen and pelvis. She was in agreement this plan. She'll be symptomatically treated with IV fluids, IV Zofran, Toradol, Protonix. Vital signs are within acceptable limits. EKG showed no signs of acute ischemia. Laboratory studies remarkable for lactic acid within normal limits. No other acute findings on labs. Imaging is remarkable for what appears to be a small bowel obstruction as the hernia does containing loops of small bowel. Patient was administered morphine and reduction of the hernia was unsuccessful. I did discuss with her over concern for small bowel obstruction with the hernia present I did want admitted to the hospital for further monitoring. She was in agreement this plan. I did speak with the on-call surgeon, Dr. Reynolds who accepted the patient. Patient will be given ice chips and popsicles for diet. Requested that the screen EKG which was already obtained as well as a cardiology consult for clearance. Also asked for an echo. This was ordered. Cardiology was consulted. Patient will receive maintenance IV fluids as well as pain meds as needed. She was in agreement with this plan. Undiagnosed new problem with uncertain prognosis? @ -No Drug Therapy requiring intensive monitoring for toxicity (Heparin, Nitro, Insulin, Cardizem)? @ -No Were any procedures done? @ -No Diagnosis/symptom? @ -Incarcerated hernia, small bowel obstruction Acute, or Chronic, or Acute on Chronic? @ -Acute Uncomplicated (without systemic symptoms) or Complicated (systemic symptoms)? @ -Complicated Side effects of treatment? @ -No Exacerbation, Progression, or Severe Exacerbation? @ -No Poses a threat to life or bodily function? How? (Chest pain, USA, NC, pneumonia, PE, COPD, DKA, ARF, appy, cholecystitis, CVA, Diverticulitis, Homicidal, Suicidal, threat to staff... and all critical care pts) @ -Yes, can progress to strangulation of the bowels which is life-threatening. - Lab Data Result diagrams: 01/01/23 13:04 01/01/23 13:04 Lab Results 01/01/23 01/01/23 01/01/23 Range/Units 13:04 13:04 13:04 WBC 7.6 (3.8-10.6) k/uL RBC 4.79 (3.80-5.40) m/uL Hgb 14.0 (11.4-16.0) gm/dL Hct 42.8 (34.0-46.0) % MCV 89.3 (80.0-100.0) fL MCH 29.3 (25.0-35.0) pg MCHC 32.8 (31.0-37.0) g/dL RDW 13.5 (11.5-15.5) % Plt Count 213 (150-450) k/uL MPV 8.6 Neutrophils % 74 % Lymphocytes % 17 % Monocytes % 6 % Eosinophils % 1 % Basophils % 0 % Neutrophils # 5.6 (1.3-7.7) k/uL Lymphocytes # 1.3 (1.0-4.8) k/uL Monocytes # 0.5 (0-1.0) k/uL Eosinophils # 0.1 (0-0.7) k/uL Basophils # 0.0 (0-0.2) k/uL PT 10.3 (9.0-12.0) sec INR 1.0 (<1.2) APTT 24.0 (22.0-30.0) sec Sodium 139 (137-145) mmol/L Potassium 4.1 (3.5-5.1) mmol/L Chloride 105 (98-107) mmol/L Carbon Dioxide 26 (22-30) mmol/L Anion Gap 8 mmol/L BUN 16 (7-17) mg/dL Creatinine 0.59 (0.52-1.04) mg/dL Est GFR (CKD-EPI)AfAm >90 (>60 ml/min/1.73 sqM) Est GFR (CKD-EPI)NonAf 89 (>60 ml/min/1.73 sqM) Glucose 104 H (74-99) mg/dL Plasma Lactic Acid Chilo (0.7-2.0) mmol/L Calcium 9.3 (8.4-10.2) mg/dL Total Bilirubin 0.7 (0.2-1.3) mg/dL AST 26 (14-36) U/L ALT 16 (4-34) U/L Alkaline Phosphatase 53 (38-126) U/L Total Protein 7.2 (6.3-8.2) g/dL Albumin 4.1 (3.5-5.0) g/dL Amylase 49 (30-110) U/L Lipase 42 (23-300) U/L 01/01/23 Range/Units 13:04 WBC (3.8-10.6) k/uL RBC (3.80-5.40) m/uL Hgb (11.4-16.0) gm/dL Hct (34.0-46.0) % MCV (80.0-100.0) fL MCH (25.0-35.0) pg MCHC (31.0-37.0) g/dL RDW (11.5-15.5) % Plt Count (150-450) k/uL MPV Neutrophils % % Lymphocytes % % Monocytes % % Eosinophils % % Basophils % % Neutrophils # (1.3-7.7) k/uL Lymphocytes # (1.0-4.8) k/uL Monocytes # (0-1.0) k/uL Eosinophils # (0-0.7) k/uL Basophils # (0-0.2) k/uL PT (9.0-12.0) sec INR (<1.2) APTT (22.0-30.0) sec Sodium (137-145) mmol/L Potassium (3.5-5.1) mmol/L Chloride (98-107) mmol/L Carbon Dioxide (22-30) mmol/L Anion Gap mmol/L BUN (7-17) mg/dL Creatinine (0.52-1.04) mg/dL Est GFR (CKD-EPI)AfAm (>60 ml/min/1.73 sqM) Est GFR (CKD-EPI)NonAf (>60 ml/min/1.73 sqM) Glucose (74-99) mg/dL Plasma Lactic Acid Chilo 1.2 (0.7-2.0) mmol/L Calcium (8.4-10.2) mg/dL Total Bilirubin (0.2-1.3) mg/dL AST (14-36) U/L ALT (4-34) U/L Alkaline Phosphatase (38-126) U/L Total Protein (6.3-8.2) g/dL Albumin (3.5-5.0) g/dL Amylase (30-110) U/L Lipase (23-300) U/L - EKG Data -: EKG Interpreted by Me EKG Comments: 12-lead Electrocardiogram Interpretation Note EKG was reviewed and interpreted by myself. 12-lead ECG performed at 1249 is interpreted by me as revealing normal sinus rhythm at a rate of 83 beats per minute. [place] is normal. [place] interval is 236 ms, QRS duration is 87 ms, QTc is 429 ms.. There were no ST or T wave abnormalities to suggest myocardial ischem ia or injury. R wave progression across the precordium was satisfactory. By my interpretation this EKG is non-diagnostic for acute ischemia. When compared with EKG from February 2020, no significant change Disposition Clinical Impression: Incarcerated hernia, Small bowel obstruction Disposition: ADMITTED IP TO THIS HOSP Condition: Stable Referrals: Yajaira Frost MD [Primary Care Provider] - 1-2 days Time of Disposition: 17:05
[2023-01-01] MEDS ORDERED: NALOXONE 0.4 MG/ML 1 ML VIAL IV PRN (17:30)
[2023-01-01] MEDS: SODIUM CHLORIDE 0.9% 1,000 ML IV SCH ×2 (18:46→19:00)
[2023-01-01] MEDS: KETOROLAC 15 MG/ML 1 ML VIAL IVP PRN (21:59)
[2023-01-01 22:56] LABS: Appearance,Urine Cloudy (Clear); Bacteria,Urine Moderate /hpf; Bilirubin,Urine Negative (Negative); Blood,Urine Trace (Negative); Color,Urine Yellow; Glucose,Urine (UA) Negative (Negative); Ketones,Urine Negative (Negative); Leukocyte Esterase,Urine Large (Negative); Mucus,Urine Rare /hpf; Nitrite,Urine Positive (Negative); PH, Urine 6.5 (5.0-8.0); Protein,Urine Negative (Negative); RBC,Urine 5 /hpf (0-5); Squamous Epithelial Cell,Urine <1 /hpf (0-4); Urobilinogen,Urine <2.0 mg/dL (<2.0); WBC,Urine 181 /hpf (0-5)
[2023-01-02] MEDS: MORPHINE SULFATE 4 MG/ML SYRINGE IV PRN ×3 (00:20→17:21)
[2023-01-02] MEDS: CHOLECALCIFEROL 25 MCG (1000 IU) TABLET PO SCH (07:44)
[2023-01-02] MEDS: LISINOPRIL-HCTZ 20-25 MG 1 EACH TAB PO SCH (07:44)
[2023-01-02 08:44] LABS: Basophils % (A) 1 %; Eosinophils # (A) 0.1 k/uL (0-0.7); Eosinophils % (A) 1 %; HCT 36.2 % (34.0-46.0); Lymphocytes % (A) 16 %; MCH 29.8 pg (25.0-35.0); MCV 90.1 fL (80.0-100.0); Mean Platelet Volume 9.2; Monocytes # (A) 0.5 k/uL (0-1.0); Monocytes % (A) 8 %; Neutrophils # (A) 4.5 k/uL (1.3-7.7); Neutrophils % (A) 73 %; Platelet Count 187 k/uL (150-450); RBC 4.02 m/uL (3.80-5.40); RDW 13.6 % (11.5-15.5); WBC 6.1 k/uL (3.8-10.6)
[2023-01-02 09:00] LABS: African American GFR (CKD) >90 (>60 ml/min/1.73 sqM); Anion Gap 4 mmol/L; Blood Urea Nitrogen 15 mg/dL (7-17); Calcium 8.3 mg/dL (8.4-10.2); Carbon Dioxide 27 mmol/L (22-30); Chloride 108 mmol/L (98-107); Glucose 99 mg/dL (74-99); Non-African American GFR(CKD) 86 (>60 ml/min/1.73 sqM); Potassium 4.1 mmol/L (3.5-5.1); Sodium 139 mmol/L (137-145)
--- NOTE | 2023-01-02 10:27 | P.CRDCN ---
History of Present Illness History of present illness: HISTORY OF PRESENTING ILLNESS Patient is pleasant 77-year-old female with history of hernias in the past, hypertension, obesity and family history of pacemaker who presents secondary to increased abdominal fullness and concern of small bowel obstruction. She had a CT abdomen and pelvis which showed small bowel containing ventral abdominal hernia with extreme bowel dilation concerning for obstruction. She therefore was recommended to undergo exploratory laparotomy. Cardiology was consult is for cardiac clearance. She denies any chest pain or pressure. She denies any shortness of breath. She is not doing too much activity secondary to her arthritis normally walks with a walker. She denies any significant dyspnea with walking around her house however. Denies any lightheadedness or syncope. No palpitations. No significant orthopnea. EKG shows sinus rhythm, left axis deviation, T-wave inversion in lead 3, nonspecific T-wave flattening in the lateral leads. REVIEW OF SYSTEMS At the time of my exam: CONSTITUTIONAL: Denies fever or chills. CARDIOVASCULAR: Denies chest pain, shortness of breath, orthopnea, PND or palpitations. RESPIRATORY: Denies cough. GASTROINTESTINAL: Denies abdominal pain, diarrhea, constipation, nausea or vomiting. MUSCULOSKELETAL: Denies myalgias. NEUROLOGIC: Denies numbness, tingling or weakness. ENDOCRINE: Denies fatigue, weight change, polydipsia or polyurina. GENITOURINARY: Denies burning, hematuria or urgency with micturation. HEMATOLOGIC: Denies history of anemia or bleeding. PHYSICAL EXAMINATION Vital signs reviewed. CONSTITUTIONAL: No apparent distress. HEENT: Head is normocephalic. Pupils are equal, round. Sclerae anicteric. Mucous membranes of the mouth are moist. No JVD. No carotid bruit. CHEST EXAMINATION: Lungs are clear to auscultation. No chest wall tenderness is noted on palpation or with deep breathing. HEART EXAMINATION: Regular rate and rhythm. S1, S2 heard. +2/6 systolic murmur, no gallops or rub. ABDOMEN: Soft, nontender. Positive bowel sounds. EXTREMITIES: 2+ peripheral pulses, no lower extremity edema and no calf tenderness. NEUROLOGIC EXAMINATION: Patient is awake, alert and oriented x3. ASSESSMENT 1. Ventral abdominal hernia with small bowel obstruction 2. Preoperative cardiovascular evaluation 3. Abnormal EKG 4. History of hypertension 5. Systolic murmur PLAN Patient not having any significant heart failure symptoms or unstable angina symptoms. We will check 2-D echo to evaluate left ventricular function as well as evaluate mild systolic murmur however if unrevealing patient would be cleared from a cardiology standpoint for surgery. Benefits appear to outweigh the risks. Past Medical History Past Medical History: Hypertension, Osteoarthritis (OA), Rheumatoid Arthritis (RA) Additional Past Medical History / Comment(s): hernia, hx ulcer 1994, gallstones, urinary frequency History of Any Multi-Drug Resistant Organisms: None Reported Past Surgical History: Hernia Repair, Joint Replacement Additional Past Surgical History / Comment(s): viola cataract sx with lens, bleeding ulcer sx, viola knee replacement, "abdominal surgery"-not sure what was done, Past Anesthesia/Blood Transfusion Reactions: No Reported Reaction Past Psychological History: No Psychological Hx Reported Smoking Status: Former smoker Past Alcohol Use History: None Reported Additional Past Alcohol Use History / Comment(s): quit smoking 1967, smoked for 4 yrs Past Drug Use History: None Reported - Past Family History Mother Family Medical History: No Reported History Additional Family Medical History / Comment(s): . Medications and Allergies Home Medications Medication Instructions Recorded Confirmed Type Cholecalciferol [Vitamin D3 (25 25 mcg PO DAILY 06/16/21 01/01/23 History Mcg = 1000 Iu)] Lisinopril-Hctz 20-25 mg 1 tab PO DAILY 06/16/21 01/01/23 History [Zestoretic 20-25] Acetaminophen [Tylenol Arthritis] 1,300 mg PO BID 01/01/23 01/01/23 History Allergies Allergy/AdvReac Type Severity Reaction Status Date / Time amoxicillin Allergy Rash/Hives Verified 01/01/23 17:29 ibuprofen Allergy Rash/Hives/ Verified 01/01/23 17:29 ulcer Penicillins Allergy Rash/Hives Verified 01/01/23 17:29 Physical Exam Vitals: Vital Signs Temp Pulse Pulse Resp BP BP Pulse Ox 01/02/23 07:00 98.2 F 75 20 109/64 92 L 01/02/23 01:50 98.1 F 74 16 107/57 97 01/01/23 20:00 97.7 F 67 131/61 94 L 01/01/23 19:49 18 01/01/23 17:43 90 18 147/78 100 01/01/23 16:36 70 16 127/77 95 01/01/23 12:06 98.6 F 86 16 172/99 97 Intake and Output 01/01/23 01/02/23 01/02/23 22:59 06:59 14:59 Output Total 100 Balance -100 Output: Urine 100 Other: Voiding Method External Catheter External Catheter # Voids 3 Weight 116.12 kg Results 01/02/23 06:18 01/02/23 06:18 Cardiac Enzymes 01/01/23 Range/Units 13:04 AST 26 (14-36) U/L Coagulation 01/01/23 Range/Units 13:04 PT 10.3 (9.0-12.0) sec APTT 24.0 (22.0-30.0) sec CBC 01/01/23 01/02/23 Range/Units 13:04 06:18 WBC 7.6 6.1 (3.8-10.6) k/uL RBC 4.79 4.02 (3.80-5.40) m/uL Hgb 14.0 12.0 (11.4-16.0) gm/dL Hct 42.8 36.2 (34.0-46.0) % Plt Count 213 187 (150-450) k/uL Comprehensive Metabolic Panel 01/01/23 01/02/23 Range/Units 13:04 06:18 Sodium 139 139 (137-145) mmol/L Potassium 4.1 4.1 (3.5-5.1) mmol/L Chloride 105 108 H (98-107) mmol/L Carbon Dioxide 26 27 (22-30) mmol/L BUN 16 15 (7-17) mg/dL Creatinine 0.59 0.66 (0.52-1.04) mg/dL Glucose 104 H 99 (74-99) mg/dL Calcium 9.3 8.3 L (8.4-10.2) mg/dL AST 26 (14-36) U/L ALT 16 (4-34) U/L Alkaline Phosphatase 53 (38-126) U/L Total Protein 7.2 (6.3-8.2) g/dL Albumin 4.1 (3.5-5.0) g/dL Current Medications Generic Name Dose Route Start Last Admin Trade Name Freq PRN Reason Stop Dose Admin Cholecalciferol 25 mcg 01/02/23 09:00 04/16/23 07:44 Cholecalciferol 25 Mcg (1000 Iu) Tablet PO 25 mcg DAILY GIOVANNY Administration Lisinopril/HCTZ 1 each 01/02/23 09:00 01/02/23 07:44 Lisinopril-Hctz 20-25 Mg 1 Each Tab PO 1 each DAILY GIOVANNY Administration Sodium Chloride 1,000 mls @ 100 mls/hr 01/01/23 17:30 01/01/23 19:00 Saline 0.9% IV 100 mls/hr .Q10H GIOVANNY Administration Ketorolac Tromethamine 15 mg 01/01/23 17:30 01/01/23 21:59 Ketorolac 15 Mg/Ml 1 Ml Vial IVP 01/04/23 17:31 15 mg Q6HR PRN Administration Moderate Pain (Scale 4 to 6) Morphine Sulfate 4 mg 01/01/23 17:30 01/02/23 06:38 Morphine Sulfate 4 Mg/Ml Syringe IV 4 mg Q4HR PRN Administration Severe Pain (Scale 7 to 10) Naloxone HCl 0.2 mg 01/01/23 17:30 Naloxone 0.4 Mg/Ml 1 Ml Vial IV Q2M PRN Opioid Reversal Intake and Output 01/01/23 01/02/23 01/02/23 22:59 06:59 14:59 Output Total 100 Balance -100 Output: Urine 100 Other: Voiding Method External Catheter External Catheter # Voids 3 Weight 116.12 kg 01/02/23 06:18 01/02/23 06:18
[2023-01-02] MEDS: ONDANSETRON 4 MG/2 ML VIAL IVP PRN ×2 (12:45→21:15)
[2023-01-02] MEDS: SODIUM CHLORIDE 0.9% 1,000 ML IV SCH ×2 (12:45→21:08)
[2023-01-02] MEDS: ACETAMINOPHEN TAB 325 MG TAB PO SCH (21:05)
[2023-01-02] MEDS: PANTOPRAZOLE 40 MG/10 ML VIAL IVP SCH (21:06)
--- NOTE | 2023-01-02 23:22 | P.GSHP ---
History of Present Illness H&P Date: 01/02/23 CHIEF COMPLAINT: Bowel obstruction HISTORY OF PRESENT ILLNESS: The patient is a 77-year-old female with prior history of ventral hernia 2 years ago. She reports 2 days ago developing swelling of the lower abdomen after coughing and lifting. Last bowel movement was 2 days ago. She denies passage of flatus. No fevers or chills. She reports an appetite. Imaging studies demonstrated bowel obstruction since her admission. PAST MEDICAL HISTORY: See list and reviewed PAST SURGICAL HISTORY: See list and reviewed MEDICATIONS: See list and reviewed ALLERGIES: See list and reviewed SOCIAL HISTORY: See list and reviewed FAMILY HISTORY: See list and reviewed REVIEW OF ORGAN SYSTEMS: CONSTITUTIONAL: No fevers or chills. No recent weight loss. EYES: Denies any trouble with vision. No glasses. HEENT: No difficulties with hearing. No nosebleeds. No difficulty swallowing. RESPIRATORY: Denies pneumonia. Denies any troubles with breathing or dyspnea on exertion. CARDIOVASCULAR: Denies any chest pain, palpitations, or recent heart attacks. GASTROINTESTINAL: Denies fatty food intolerance. Denies change in bowel habits and gas bloat. GENITOURINARY: Denies any blood in urine or increased urinary frequency. NEUROLOGICAL: Denies any numbness or tingling along the distal extremities. No seizure disorders or headaches. MUSCULOSKELETAL: Denies any back pain, stiffness or joint arthritis. SKIN: No current skin cancer. No rash. PSYCHIATRIC: Denies current depression or suicidal thoughts. ENDOCRINE: Denies current thyroid disorders. Denies any blood sugar glucose in tolerance. HEME/LYMPHATIC: Denies any lumps and bumps around the neck. No recent deep venous thrombosis. ALLERGY/IMMUNOLOGY: No immunoglobulin therapy. No immune deficiencies. BREAST: Denies current breast lumps, pain or nipple discharge. PHYSICAL EXAM: VITALS: Reviewed CONSTITUTIONAL: Well developed and in no acute distress. EYES: Conjuctivae without sclera icterus. Extraocular movements grossly intact. HEAD, EARS, NOSE, THROAT: Moist buccal mucosa. Head is atraumatic, normocephalic. Hears conversational speech. No nasal drainage. NECK: Supple. No JV distention. No thyroidomegaly. RESPIRATORY: Non-labored respirations and equal bilateral excursions. No gross wheezes. CARDIOVASCULAR: Palpable 2+ radial pulses. ABDOMEN: Obese, swelling lower abdomen incarcerated incisional hernia. No skin changes. LYMPH: No neck lymphadenopathy. MUSCULOSKELETAL: No clubbing cyanosis or edema. SKIN: Warm and well perfused with good skin turgor. NEUROLOGIC: Cranial nerves II through XII grossly intact. No focal or lateralizing signs. PSYCH: Appropriate affect. Alert and oriented to person, place and time. Displays appropriate insight. CLINCAL LABS: Reviewed. WBC normal. LFTs normal. Leukocyte esterase and nitrates urinary tract infection. IMAGING: Independently reviewed. CT of the abdomen and pelvis independently reviewed demonstrates small bowel incarcerated lower abdomen. No free air. RADIOLOGY: Report revied demonstrates small bowel incarcerated hernia. Cholelithiasis. Dermoid tumor. RECORDS: previous old records reviewed ventral hernia repair 2020. EKG: Supraventricular premature contractions. ASSESSMENT: 1. Incarcerated ventral hernia with bowel obstruction 2. Abnormal EKG 3. Morbid obesity due to excess calories 4. Gastroesophageal reflux disease PLAN: 1. IV fluid hydration. 2. Cardiology consultation for abnormal EKG 3. Nothing by mouth except ice chips and popsicles 4. Recommend urgent surgical intervention for incarcerated ventral hernia with bowel obstruction 5. Inpatient hospitalization 3-5 days described ADVANCE DIRECTIVE: Past Medical History Past Medical History: Hypertension, Osteoarthritis (OA), Rheumatoid Arthritis (RA) Additional Past Medical History / Comment(s): hernia, hx ulcer 1994, gallstones, urinary frequency History of Any Multi-Drug Resistant Organisms: None Reported Past Surgical History: Hernia Repair, Joint Replacement Additional Past Surgical History / Comment(s): viola cataract sx with lens, bleeding ulcer sx, viola knee replacement, "abdominal surgery"-not sure what was done, Past Anesthesia/Blood Transfusion Reactions: No Reported Reaction Past Psychological History: No Psychological Hx Reported Smoking Status: Former smoker Past Alcohol Use History: None Reported Additional Past Alcohol Use History / Comment(s): quit smoking 1967, smoked for 4 yrs Past Drug Use History: None Reported - Past Family History Mother Family Medical History: No Reported History Additional Family Medical History / Comment(s): . Medications and Allergies Home Medications Medication Instructions Recorded Confirmed Type Cholecalciferol [Vitamin D3 (25 25 mcg PO DAILY 06/16/21 01/01/23 History Mcg = 1000 Iu)] Lisinopril-Hctz 20-25 mg 1 tab PO DAILY 06/16/21 01/01/23 History [Zestoretic 20-25] Acetaminophen [Tylenol Arthritis] 1,300 mg PO BID 01/01/23 01/01/23 History Allergies Allergy/AdvReac Type Severity Reaction Status Date / Time amoxicillin Allergy Rash/Hives Verified 01/01/23 17:29 ibuprofen Allergy Rash/Hives/ Verified 01/01/23 17:29 ulcer Penicillins Allergy Rash/Hives Verified 01/01/23 17:29 Surgical - Exam Vital Signs Temp Pulse Resp BP Pulse Ox 98.6 F 86 16 172/99 97 01/01/23 12:06 01/01/23 12:06 01/01/23 12:06 01/01/23 12:06 01/01/23 12:06 Results - Labs 01/02/23 06:18 01/02/23 06:18 Abnormal Lab Results - Last 24 Hours (Table) 01/01/23 01/02/23 Range/Units 22:00 06:18 Chloride 108 H (98-107) mmol/L Calcium 8.3 L (8.4-10.2) mg/dL Urine Appearance Cloudy H (Clear) Ur Specific [place] 1.050 H (1.001-1.035) Urine Blood Trace H (Negative) Urine Nitrite Positive H (Negative) Ur Leukocyte Esterase Large H (Negative) Urine WBC 181 H (0-5) /hpf Urine Bacteria Moderate H (None) /hpf Urine Mucus Rare H (None) /hpf Diabetes panel 01/02/23 Range/Units 06:18 Sodium 139 (137-145) mmol/L Potassium 4.1 (3.5-5.1) mmol/L Chloride 108 H (98-107) mmol/L Carbon Dioxide 27 (22-30) mmol/L BUN 15 (7-17) mg/dL Creatinine 0.66 (0.52-1.04) mg/dL Glucose 99 (74-99) mg/dL Calcium 8.3 L (8.4-10.2) mg/dL Calcium panel 01/02/23 Range/Units 06:18 Calcium 8.3 L (8.4-10.2) mg/dL Pituitary panel 01/02/23 Range/Units 06:18 Sodium 139 (137-145) mmol/L Potassium 4.1 (3.5-5.1) mmol/L Chloride 108 H (98-107) mmol/L Carbon Dioxide 27 (22-30) mmol/L BUN 15 (7-17) mg/dL Creatinine 0.66 (0.52-1.04) mg/dL Glucose 99 (74-99) mg/dL Calcium 8.3 L (8.4-10.2) mg/dL Adrenal panel 01/02/23 Range/Units 06:18 Sodium 139 (137-145) mmol/L Potassium 4.1 (3.5-5.1) mmol/L Chloride 108 H (98-107) mmol/L Carbon Dioxide 27 (22-30) mmol/L BUN 15 (7-17) mg/dL Creatinine 0.66 (0.52-1.04) mg/dL Glucose 99 (74-99) mg/dL Calcium 8.3 L (8.4-10.2) mg/dL
[2023-01-03] MEDS: ONDANSETRON 4 MG/2 ML VIAL IVP PRN ×2 (01:29→14:59)
[2023-01-03] MEDS: CHOLECALCIFEROL 25 MCG (1000 IU) TABLET PO SCH (09:01)
[2023-01-03] MEDS: SODIUM CHLORIDE 0.9% 1,000 ML IV SCH ×2 (09:01→21:33)
[2023-01-03] MEDS: PANTOPRAZOLE 40 MG/10 ML VIAL IVP SCH ×2 (09:01→21:33)
[2023-01-03] MEDS: ACETAMINOPHEN TAB 325 MG TAB PO SCH (09:01)
[2023-01-03] MEDS: LISINOPRIL-HCTZ 20-25 MG 1 EACH TAB PO SCH (09:01)
[2023-01-03] MEDS: KETOROLAC 15 MG/ML 1 ML VIAL IVP PRN ×2 (09:13→21:32)
--- NOTE | 2023-01-03 10:39 | P.PN ---
Subjective Progress Note Date: 01/03/23 HISTORY OF PRESENTING ILLNESS Patient is pleasant 77-year-old female with history of hernias in the past, hypertension, obesity and family history of pacemaker who presents secondary to increased abdominal fullness and concern of small bowel obstruction. She had a CT abdomen and pelvis which showed small bowel containing ventral abdominal hernia with extreme bowel dilation concerning for obstruction. She therefore was recommended to undergo exploratory laparotomy. Cardiology was consult is for cardiac clearance. She denies any chest pain or pressure. She denies any shortness of breath. She is not doing too much activity secondary to her arthritis normally walks with a walker. She denies any significant dyspnea with walking around her house however. Denies any lightheadedness or syncope. No palpitations. No significant orthopnea. EKG shows sinus rhythm, left axis deviation, T-wave in version in lead 3, nonspecific T-wave flattening in the lateral leads. 01/03 Patient underwent echocardiogram this morning that does show mild aortic stenosis. Patient is cleared for surgery today from cardiology. Patient denies having any chest pain or shortness of breath. No lightheadedness or dizziness. Heart rate has been in the 70s and 80s, blood pressure 133/71. PHYSICAL EXAMINATION Vital signs reviewed. CONSTITUTIONAL: No apparent distress. HEENT: Head is normocephalic. Pupils are equal, round. Sclerae anicteric. Mucous membranes of the mouth are moist. No JVD. No carotid bruit. CHEST EXAMINATION: Lungs are clear to auscultation. No chest wall tenderness is noted on palpation or with deep breathing. HEART EXAMINATION: Regular rate and rhythm. S1, S2 heard. +2/6 systolic murmur, no gallops or rub. ABDOMEN: Soft, nontender. Positive bowel sounds. EXTREMITIES: 2+ peripheral pulses, no lower extremity edema and no calf tenderness. NEUROLOGIC EXAMINATION: Patient is awake, alert and oriented x3. ASSESSMENT 1. Ventral abdominal hernia with small bowel obstruction 2. Preoperative cardiovascular clearance has been obtained 3. Abnormal EKG 4. History of hypertension 5. Systolic murmur/ mild aortic stenosis PLAN Patient not having any significant heart failure symptoms or unstable angina symptoms. Patient would be cleared from a cardiology standpoint for surgery. Benefits appear to outweigh the risks. Nurse practitioner note has been reviewed, I agree with the documented findings and plan of care. Patient was seen and examined. Objective - Vital Signs Vital signs: Vital Signs Temp 98.6 F 01/03/23 07:00 Pulse 80 01/03/23 07:00 Resp 17 01/03/23 07:00 BP 133/61 01/03/23 07:00 Pulse Ox 94 L 01/03/23 07:00 FiO2 Intake & Output 01/02/23 01/03/23 01/03/23 18:59 06:59 18:59 Other: Voiding Method External Catheter External Catheter # Voids 1 0 - Labs CBC & Chem 7: 01/02/23 06:18 01/02/23 06:18 Labs: Abnormal Lab Results - Last 24 Hours (Table) 01/02/23 Range/Units 06:18 Chloride 108 H (98-107) mmol/L Calcium 8.3 L (8.4-10.2) mg/dL
--- NOTE | 2023-01-03 14:45 | P.PN ---
Subjective Progress Note Date: 01/03/23 CHIEF COMPLAINT: Bowel obstruction HISTORY OF PRESENT ILLNESS: The patient is a 77-year-old female who presents with spontaneous swelling of the lower abdomen consistent with incarcerated bowel obstruction from recurrent ventral hernia. She reports no passage of flatus. She reports no bowel movements. Patient had obtained assessment through police lieutenant which she was cleared to proceed with surgery. REVIEW OF ORGAN SYSTEMS: CONSTITUTIONAL: No fevers or chills. Morbid obesity, BMI 41.3 GASTROINTESTINAL: Has change in bowel habits. PHYSICAL EXAM: VITALS: Reviewed CONSTITUTIONAL: Well developed and in no acute distress. EYES: Conjuctivae without sclera icterus. Extraocular movements grossly intact. HEAD, EARS, NOSE, THROAT: Moist buccal mucosa. Head is atraumatic, normocephalic. Hears conversational speech. No nasal drainage. RESPIRATORY: Non-labored respirations and equal bilateral excursions. No gross wheezes. CARDIOVASCULAR: Palpable 2+ radial pulses. ABDOMEN: Incarcerated bowel of ventral hernia. MUSCULOSKELETAL: No clubbing cyanosis or edema. SKIN: Warm and well perfused with good skin turgor. NEUROLOGIC: Cranial nerves II through XII grossly intact. No focal or lateralizing signs. PSYCH: Appropriate affect. Alert and oriented to person, place and time. Di splays appropriate insight. CLINCAL LABS: Reviewed. ECHO: Performed. ASSESSMENT: 1. Incarcerated ventral hernia with bowel obstruction 2. Abnormal EKG 3. Morbid obesity due to excess calories 4. Gastroesophageal reflux disease PLAN: 1. She has incarcerated ventral hernia with bowel obstruction for which surgical intervention described. 2. Robotic-assisted approach reviewed. Possibility of small bowel resection reviewed. 3. Inpatient hospitalization greater than 3 nights described 4. Patient cleared from cardiology to proceed 5. She is elevated risk for complications due to comorbidities and morbid obesity Objective - Vital Signs Vital signs: Vital Signs Temp 98.6 F 01/03/23 07:00 Pulse 80 01/03/23 07:00 Resp 17 01/03/23 07:00 BP 133/61 01/03/23 07:00 Pulse Ox 94 L 01/03/23 07:00 FiO2 Intake & Output 01/02/23 01/03/23 01/03/23 18:59 06:59 18:59 Other: Voiding Method External Catheter External Catheter # Voids 1 0 - Labs CBC & Chem 7: 01/02/23 06:18 01/02/23 06:18
--- NOTE | 2023-01-03 14:46 | P.CONS ---
History of Present Illness - Reason for Consult Consult date: 01/03/23 Medical management - History of Present Illness History of present illness; Patient is 77-year-old female with past medical history significant for hypertension, obesity, ventral hernia who presented to the ER because of com plaining of abdominal fullness and distention. She denied any complaint of any nausea or vomiting. Patient last bowel movement was 2 days ago, patient denied passing any gas. Patient had a CT abdomen and pelvis which showed small bowel containing ventral abdominal hernia with extreme bowel dilation concerning for obstruction. General surgery consulted, they evaluated the patient and recommended exploratory laparotomy. Internal medicine team was consulted for medical management REVIEW OF SYSTEMS: CONSTITUTIONAL: No fever, no malaise, no fatigue. HEENT: No recent visual problems or hearing problems. Denied any sore throat. CARDIOVASCULAR: No chest pain, orthopnea, PND, no palpitations, no syncope. PULMONARY: No shortness of breath, no cough, no hemoptysis. GASTROINTESTINAL: No diarrhea, no nausea, no vomiting, no abdominal pain. NEUROLOGICAL: No headaches, no weakness, no numbness. HEMATOLOGICAL: Denies any bleeding or petechiae. GENITOURINARY: Denies any burning micturition, frequency, or urgency. MUSCULOSKELETAL/RHEUMATOLOGICAL: Denies any joint pain, swelling, or any muscle pain. ENDOCRINE: Denies any polyuria or polydipsia. The rest of the 14-point review of systems is negative. PHYSICAL EXAMINATION: GENERAL: The patient is alert and oriented x3, not in any acute distress. Well developed, well nourished. HEENT: Pupils are round and equally reacting to light. EOMI. No scleral icterus. No conjunctival pallor. Normocephalic, atraumatic. No pharyngeal erythema. No thyromegaly. CARDIOVASCULAR: S1 and S2 present. No murmurs, rubs, or gallops. PULMONARY: Chest is clear to auscultation, no wheezing or crackles. ABDOMEN: Distended, bowel sounds are sluggish, surgical scar seen. No palpable organomegaly. MUSCULOSKELETAL: No joint swelling or deformity. EXTREMITIES: No cyanosis, clubbing, or pedal edema. NEUROLOGICAL: Gross neurological examination did not reveal any focal deficits. SKIN: No rashes. Assessment and plan Incarcerated ventral hernia with bowel obstruction Abnormal EKG History of hypertension Morbid obesity due to excess calories Gastroesophageal reflux disease Plan; Monitor vital signs Monitor CBC Continue telemetry. Cardiology were consulted for preoperative cardiac clearance, they ordered 2-D echo for clearence Continue IV fluids Keep patient nothing by mouth Continue home meds DVT prophylaxis: Past Medical History Past Medical History: Hypertension, Osteoarthritis (OA), Rheumatoid Arthritis (RA) Additional Past Medical History / Comment(s): hernia, hx ulcer 1994, gallstones, urinary frequency History of Any Multi-Drug Resistant Organisms: None Reported Past Surgical History: Hernia Repair, Joint Replacement Additional Past Surgical History / Comment(s): viola cataract sx with lens, bleeding ulcer sx, viola knee replacement, "abdominal surgery"-not sure what was done, Past Anesthesia/Blood Transfusion Reactions: No Reported Reaction Past Psychological History: No Psychological Hx Reported Smoking Status: Former smoker Past Alcohol Use History: None Reported Additional Past Alcohol Use History / Comment(s): quit smoking 1967, smoked for 4 yrs Past Drug Use History: None Reported - Past Family History Mother Family Medical History: No Reported History Additional Family Medical History / Comment(s): . Medications and Allergies Home Medications Medication Instructions Recorded Confirmed Type Cholecalciferol [Vitamin D3 (25 25 mcg PO DAILY 06/16/21 01/01/23 History Mcg = 1000 Iu)] Lisinopril-Hctz 20-25 mg 1 tab PO DAILY 06/16/21 01/01/23 History [Zestoretic 20-25] Acetaminophen [Tylenol Arthritis] 1,300 mg PO BID 01/01/23 01/01/23 History Allergies Allergy/AdvReac Type Severity Reaction Status Date / Time amoxicillin Allergy Rash/Hives Verified 01/03/23 14:21 ibuprofen Allergy Rash/Hives/ Verified 01/03/23 14:21 ulcer Penicillins Allergy Rash/Hives Verified 01/03/23 14:21 Physical Exam Vitals: Vital Signs Temp Pulse Resp BP Pulse Ox 01/03/23 07:00 98.6 F 80 17 133/61 94 L 01/03/23 02:00 98.3 F 78 13 132/73 95 01/02/23 19:43 98.6 F 71 16 142/82 94 L 01/02/23 14:57 97.8 F 70 18 145/66 95 Intake and Output 01/02/23 01/03/23 01/03/23 22:59 06:59 14:59 Other: Voiding Method External Catheter External Catheter # Voids 1 0 Results CBC & Chem 7: 01/02/23 06:18 01/02/23 06:18
[2023-01-03] MEDS ORDERED: LACTATED RINGERS 1,000 ML IV ONE ×3 (14:59→16:07)
[2023-01-03] MEDS ORDERED: MIDAZOLAM 2 MG/2 ML VIAL IVP ONE (15:04)
[2023-01-03] MEDS ORDERED: fentaNYL (PF) 50 MCG/ML 2 ML AMP IVP ONE (15:04)
[2023-01-03] MEDS: HEPARIN SODIUM,PORCINE/PF 5,000 UNIT/0.5 ML SYRINGE SQ SCH ×2 (15:15→21:33)
[2023-01-03] MEDS ORDERED: PHENYLEPHRINE-0.9% NACL SYG 1,000 MCG/10 ML SYRINGE ONE (15:18)
[2023-01-03] MEDS ORDERED: PROPOFOL 10 MG/ML 20 ML VIAL IV ONE (15:18)
[2023-01-03] MEDS ORDERED: SODIUM CHLORIDE 0.9% (PF) 10 ML VIAL ONE (15:18)
[2023-01-03] MEDS ORDERED: ROPIVACAINE 5 MG/ML 30 ML VIAL ONE (15:18)
[2023-01-03] MEDS ORDERED: MIDAZOLAM 2 MG/2 ML VIAL ONE (15:18)
[2023-01-03] MEDS ORDERED: NEOSTIGMINE 1 MG/ML 10 ML VIAL ONE (15:18)
[2023-01-03] MEDS ORDERED: ROCURONIUM 10 MG/ML (5 ML VIAL) IV ONE (15:18)
[2023-01-03] MEDS ORDERED: LIDOCAINE 2% INJ 20 MG/ML (2 ML VIAL) ONE (15:18)
[2023-01-03] MEDS ORDERED: SUCCINYLCHOLINE CHLORIDE 200 MG/10 ML VIAL IV ONE (15:18)
[2023-01-03] MEDS ORDERED: GLYCOPYRROLATE 0.2 MG/ML 2 ML VIAL ONE (15:18)
[2023-01-03] MEDS ORDERED: fentaNYL (PF) 50 MCG/ML 2 ML AMP ONE (15:18)
[2023-01-03] MEDS ORDERED: BUPIVACAIN-EPI 0.25%-1:200,000 30 ML VIAL SQ ONE (15:44)
--- NOTE | 2023-01-03 15:49 | P.ANPRN ---
Procedure Note - Anesthesia - Nerve Block Performed Bilateral Transversus Abdominis Single Time Out Performed: Yes (1503) Date of Procedure: 01/03/23 Procedure Start Time: 15:04 Procedure Stop Time: 15:14 Location of Patient: PreOp Indication: Acute Post-Operative Pain, Requested by Surgeon Specifically requested for management of pain by : Porsha Reynolds Sedation Type: Sedate with meaningful contact maintained Preparation: Sterile Prep Position: Supine Catheter: None Needle Types: Pajunk Needle Gauge: 21 Ultrasound used to visualize needle placement: Yes Ultrasound used to observe medication spread: Yes Injectate: 0.5% Ropivacaine (see comment for volume) (15cc + 10cc nacl pf each side) Blood Aspirated: No Pain Paresthesia on Injection Noted: No Resistance on Injection: Normal Image Stored and Saved: Yes Events: Uneventful and Well Tolerated
[2023-01-03] MEDS ORDERED: HYDROmorphone 1 MG/ML 1 ML SYRINGE IVP PRN (18:12)
--- NOTE | 2023-01-03 18:12 | P.OP ---
Date of Procedure: 01/03/23 Description of Procedure: SURGEON: MARI BRAY MD PREOPERATIVE DIAGNOSES: 1. Recurrent incisional ventral hernia with small bowel incarceration 2. Morbid obesity due to excess calories BMI 41.3 3. Hypertensive heart disease 4. Rheumatoid arthritis POSTOPERATIVE DIAGNOSES: 1. Recurrent incisional ventral hernia with small bowel incarceration 2. Morbid obesity due to excess calories, BMI 42.3 3. Hypertensive heart disease 4. Rheumatoid arthritis 5. Intra-abdominal peritoneal adhesions 6. Small bowel obstruction due to incisional hernia, recurrent OPERATION: 1.Robotic-assisted daVinci Xi laparoscopic reduction and repair of recurrent incarcerated incisional hernia involving small bowel 5 x 5 centimeters, left lower quadrant without mesh 3. Robotic-assisted daVinci Xi laparoscopic extensive lysis of adhesions over 1.5 hours ANESTHESIA: General with local ESTIMATED BLOOD LOSS: 5 mL. SPECIMENS: None. COMPLICATIONS: None. Operative Findings: 1. Incarcerated small bowel along left lower abdomen, 5 cm x 5 cm with small bowel incarceration and abdominal wall adhesions, reduced 2. Extensive lysis of adhesions over 1.5 hours robotic-assisted approach INDICATIONS: The patient is a 77-year-old female who presents with recurrent incisional ventral hernia of lower abdomen including small bowel obstruction. Patient presented as high risk with casino banker assessment obtained. Surgical intervention with laparoscopic versus robotic and open techniques were reviewed. Placement of mesh was also reviewed. Benefits and risks including but not limited to open approach, mesh placement, injury to the small bowel, bleeding, infection need for further surgery were thoroughly described. Informed consent was obtained. DESCRIPTION OF PROCEDURE: The patient was brought into the operating room and laid in supine position. After general induction, the abdomen had been prepped and draped in standard sterile fashion. Ioban draping was also placed. Prior to incision, a timeout protocol was confirmed with surgical team regarding the patient's name including procedures to be performed. The robot was primed prior to the procedure. A field block using local anesthetic was placed along proposed port sites. Initial incision was made with an #11 blade along the left upper. A 0 degree 5 mm laparoscopic trocar entry was performed. Diagnostic laparoscopy demonstrated severe peritoneal adhesions along the upper abdomen and lower abdomen. Peritoneal adhesions of small bowel to the abdominal wall along the lower midline was identified. Prior suture repair with failure was identified along the lower abdominal incision. Three 8 mm trocar were placed along the left lateral abdominal wall. The 5-mm port was exchanged for a 12 mm robotic port. Placements of the ports were 20 cm from the target anatomy 9 cm apart. Four arms were used. The da Curt XI robot was previously primed, prepped and draped then docked along the left side of the patient. I then sat at the robot Da Curt XI console where working arms of the robot including Bovie cautery connected to robotic scissors, needle paratransit driver, vessel sealer and graspers placed by the mobile unit assistant. Adhesions along the midline were initially addressed with scissors and vessel sealer with reduction of the small bowel herniation. Extensive lysis of adhesions over 1.5 hrs was performed using vessel sealer and scissors without enterotomy or colotomy. Incisional hernia defects left lower abdomen 5 cm x 5 cm was found and reduced. The hernia bordering fascia was cleaned of peritoneal attachments. Next, hemostasis was checked with cautery. Failure of the mesh at the left lower quadrant was closed and oversewn using #1 V-LOC fascial imbrication 2. A final endoscopic imaging was obtained. All instruments and pneumoperitoneum were evacuated from the abdominal cavity. The da Curt XI robot was undocked from the patient. I re-scrubbed into the case for closure of incisions. The incisions were reapproximated using 4-0 Monocryl in an interrupted subcuticular fashion. Liquid glue was applied to the skin. Abdominal binder was placed. At the end of the procedure, needle, sponge, and instrument count had been verified correct by regional vice president surgical sales. The patient was taken to the stanesthesia care unit in stable condition with abdominal binder. Her family was updated and level of care and requested additional social work management as patient lives alone.
--- NOTE | 2023-01-03 18:22 | CA ---
Transthoracic Echo Report Name: Jennifer Cisneros Age: 77 Gender: F : 1945 Exam Date: 01/03/2023 08:23 Exam Location: [facility] Ht (in): 66 Wt (lb): 256 Ordering Physician: Pernell Whittington MD Attending/Referring Phys: Cloth Bleaching Supervisor Alcira Spencer RDCS Procedure CPT: Indications: cardiac clearance for surgery Cardiac Hx: Technical Quality: Technically difficult study Contrast 1: Lumason Total Dose (mL): 5 Contrast 2: Total Dose (mL): MEASUREMENTS (Male / Female) Normal Values 2D ECHO LV Diastolic Diameter PLAX 4.4 cm 4.2 - 5.9 / 3.9 - 5.3 cm LV Systolic Diameter PLAX 2.5 cm IVS Diastolic Thickness 1.7 cm 0.6 - 1.0 / 0.6 - 0.9 cm LVPW Diastolic Thickness 1.5 cm 0.6 - 1.0 / 0.6 - 0.9 cm LV Relative Wall Thickness 0.7 RV Internal Dim ED PLAX 4.3 cm LA Volume 111.8 cm??? 18 - 58 / 22 - 52 cm??? M-MODE Aortic Root Diameter MM 3.0 cm LA Systolic Diameter MM 5.5 cm LA Ao Ratio MM 1.8 AV Cusp Separation MM 1.6 cm DOPPLER AV Peak Velocity 252.0 cm/s AV Peak Gradient 25.4 mmHg AV Mean Velocity 176.4 cm/s AV Mean Gradient 13.5 mmHg AV Velocity Time Integral 50.3 cm LVOT Peak Velocity 143.0 cm/s LVOT Peak Gradient 8.2 mmHg LVOT Velocity Time Integral 31.4 cm MV Area PHT 5.3 cm??? Mitral E Point Velocity 76.4 cm/s Mitral A Point Velocity 108.4 cm/s Mitral E to A Ratio 0.7 MV Deceleration Time 142.6 ms MV E' Velocity 8.4 cm/s Mitral E to MV E' Ratio 9.1 TR Peak Velocity 324.6 cm/s TR Peak Gradient 42.1 mmHg Right Ventricular Systolic Press 47.1 mmHg FINDINGS Left Ventricle Severely increased left ventricular wall thickness. Left ventricular cavity size normal. Normal left ventricular systolic function with no obvious regional wall motion abnormalities. Left ventricular ejection fraction is estimated at 50-55 %. Right Ventricle Severe right ventricular dilatation. Mild pulmonary hypertension. Right ventricular systolic pressure estimated at 47 mm hg. Right Atrium Normal right atrial size. Left Atrium Severely increased left atrial volume. Mildly increased left atrial area. Mitral Valve Structurally normal mitral valve. [id number] mitral regurgitation. Aortic Valve Mild aortic stenosis with a peak gradient of 25 mmHg and a mean gradient of 14 mmHg. No aortic regurgitation. Tricuspid Valve Structurally normal tricuspid valve. Mild tricuspid regurgitation. Pulmonic Valve Trace pulmonic regurgitation. Pericardium No pericardial effusion. Aorta Normal size aortic root and proximal ascending aorta. CONCLUSIONS Normal LV systolic function Mild aortic stenosis Mild to moderate mitral regurgitation Previewed by: Dr. David Maki MD (Electronically Signed) Final Date: 03 January 2023 18:20
[2023-01-03] MEDS ORDERED: SODIUM CHLORIDE 0.9% 1,000 ML IV ONE (19:01)
[2023-01-04] MEDS: SODIUM CHLORIDE 0.9% 1,000 ML IV SCH ×4 (01:56→21:24)
[2023-01-04] MEDS: KETOROLAC 15 MG/ML 1 ML VIAL IVP PRN ×2 (01:57→09:45)
[2023-01-04] MEDS: LISINOPRIL-HCTZ 20-25 MG 1 EACH TAB PO SCH (08:07)
[2023-01-04] MEDS: HEPARIN SODIUM,PORCINE/PF 5,000 UNIT/0.5 ML SYRINGE SQ SCH ×2 (08:07→20:05)
[2023-01-04] MEDS: PANTOPRAZOLE 40 MG/10 ML VIAL IVP SCH ×2 (09:41→20:05)
--- NOTE | 2023-01-04 14:25 | P.PN ---
Subjective Progress Note Date: 01/04/23 Patient is 77-year-old female with past medical history significant for hypertension, obesity, ventral hernia who presented to the ER because of complaining of abdominal fullness and distention. She denied any complaint of any nausea or vomiting. Patient last bowel movement was 2 days ago, patient denied passing any gas. Patient had a CT abdomen and pelvis which showed small bowel containing ventral abdominal hernia with extreme bowel dilation concerning for obstruction. General surgery consulted, they evaluated the patient and recommended exploratory laparotomy. Internal medicine team was consulted for medical management 01/04. Patient seen and examined. Currently laying comfortably in the bed. Denies any abdominal pain, denies any nausea or vomiting REVIEW OF SYSTEMS: CONSTITUTIONAL: No fever, no malaise,. CARDIOVASCULAR: No chest pain, no palpitations, no syncope. PULMONARY: No shortness of breath, no cough, GASTROINTESTINAL: As in HPI NEUROLOGICAL: No headaches, no weakness, PHYSICAL EXAMINATION: GENERAL: The patient is alert and oriented x3, not in any acute distress. Well developed, well nourished. HEENT: Pupils are round and equally reacting to light. EOMI. No scleral icterus. No conjunctival pallor. Normocephalic, atraumatic. No pharyngeal erythema. No thyromegaly. CARDIOVASCULAR: S1 and S2 present. No murmurs, rubs, or gallops. PULMONARY: Chest is clear to auscultation, no wheezing or crackles. ABDOMEN: Soft, nontender, nondistended, normoactive bowel sounds. No palpable organomegaly. Laparoscopic surgical incision seen MUSCULOSKELETAL: No joint swelling or deformity. EXTREMITIES: No cyanosis, clubbing, or pedal edema. NEUROLOGICAL: Gross neurological examination did not reveal any focal deficits. SKIN: No rashes. Assessment and plan Incarcerated ventral hernia with bowel obstruction Abnormal EKG History of hypertension Morbid obesity due to excess calories Gastroesophageal reflux disease Plan Monitor vital signs Monitor CBC Monitor CMP Patient underwent Robotic-assisted daVinci Xi laparoscopic reduction and repair of recurrent incarcerated incisional hernia involving small bowel 5 x 5 centimeters, left lower quadrant without mesh, Robotic-assisted daVinci Xi la paroscopic extensive lysis of adhesions over 1.5 hours Continue IV fluids Keep patient nothing by mouth Continue home meds Advance diet per surgery Objective - Vital Signs Vital signs: Vital Signs Temp 98.3 F 01/04/23 13:32 Pulse 75 01/04/23 13:32 Resp 16 01/04/23 13:32 BP 112/65 01/04/23 13:32 Pulse Ox 95 01/04/23 13:32 FiO2 Intake & Output 01/03/23 01/04/23 01/04/23 18:59 06:59 18:59 Intake Total 1950 0 Output Total 155 550 Balance 1795 -550 Weight 116.12 kg Intake: IV 1950 Oral 0 Output: Drainage 200 Right 200 Urine 150 350 Estimated Blood Loss 5 Other: Voiding Method External Catheter Bedside Commode Diaper # Voids 1 1 - Labs CBC & Chem 7: 01/02/23 06:18 01/02/23 06:18
--- NOTE | 2023-01-04 16:31 | P.PN ---
Subjective Progress Note Date: 01/04/23 CHIEF COMPLAINT: Recurrent incisional ventral hernia with small bowel incarceration HISTORY OF PRESENT ILLNESS: Patient sitting up at bedside chair. She did pull out her NG tube during the night. She is postop day #1 Robotic-assisted daVinci Xi laparoscopic reduction and repair of recurrent incarcerated incisional hernia involving small bowel 5 x 5 centimeters, left lower quadrant without mesh and ly sis of adhesions. She reports no nausea or vomiting. Her pain is controlled. No flatus. Afebrile. PHYSICAL EXAM: VITAL SIGNS: Reviewed GENERAL: Well-developed in no acute distress. HEENT: No sclera icterus. Extraocular movements grossly intact. Moist buccal mucosa. Head is atraumatic, normocephalic. Hears conversational speech. No nasal drainage. NECK: Supple without lymphadenopathy. CHEST: Non-labored respirations and equal bilateral excursions. CARDIOVASCULAR: Palpable 2+ radial pulses. ABDOMEN: Soft. Nondistended. Nontender. MUSCULOSKELETAL: No clubbing or cyanosis. NEUROLOGIC: No focal or lateralizing signs. Cranial nerves II through XII grossly intact. PSYCH: Appropriate affect. Alert and oriented to person, place and time. SKIN: Well perfused. Good skin turgor. ASSESSMENT: 1. Recurrent incisional ventral hernia with small bowel incarceration 2. Morbid obesity due to excess calories, BMI 42.3 3. Hypertensive heart disease 4. Rheumatoid arthritis 5. Intra-abdominal peritoneal adhesions 6. Small bowel obstruction due to incisional hernia, recurrent PLAN: -Keep patient nothing by mouth For ice chips and popsicles -Encouraged patient to increase activity level -Continue pain management -Continue IV fluids -Incentive spirometer ordered -GI prophylaxis Protonix and DVT prophylaxis subcu heparin Physician Fuel Cell Engineer note has been reviewed by physician. Signing provider agrees with the documented findings, assessment, and plan of care. Please see additional documentation Patient is status post repair of incisional recurrent ventral hernia with bowel obstruction. NG tube was placed while intraoperatively. Patient removed her NG tube. Await passage of flatus. Trial of liquid diet in 24 hours. Objective - Vital Signs Vital signs: Vital Signs Temp 98.3 F 01/04/23 13:32 Pulse 75 01/04/23 13:32 Resp 16 01/04/23 13:32 BP 112/65 01/04/23 13:32 Pulse Ox 95 01/04/23 13:32 FiO2 Intake & Output 01/03/23 01/04/23 01/04/23 18:59 06:59 18:59 Intake Total 1950 0 Output Total 155 550 250 Balance 1795 -550 -250 Weight 116.12 kg Intake: IV 1950 Oral 0 Output: Drainage 200 Right 200 Urine 150 350 250 Estimated Blood Loss 5 Other: Voiding Method External Catheter Bedside Commode Diaper # Voids 1 1 - Labs CBC & Chem 7: 01/02/23 06:18 01/02/23 06:18
[2023-01-05] MEDS: MORPHINE SULFATE 4 MG/ML SYRINGE IV PRN ×3 (04:15→20:10)
[2023-01-05] MEDS: SODIUM CHLORIDE 0.9% 1,000 ML IV SCH ×4 (05:15→22:32)
[2023-01-05] MEDS: HEPARIN SODIUM,PORCINE/PF 5,000 UNIT/0.5 ML SYRINGE SQ SCH ×2 (07:58→20:10)
[2023-01-05] MEDS: LISINOPRIL-HCTZ 20-25 MG 1 EACH TAB PO SCH (07:58)
[2023-01-05] MEDS: PANTOPRAZOLE 40 MG/10 ML VIAL IVP SCH ×2 (09:13→20:11)
[2023-01-05] MEDS ORDERED: ACETAMINOPHEN TAB 500 MG TAB PO PRN (09:43)
--- NOTE | 2023-01-05 15:05 | P.PN ---
Subjective Progress Note Date: 01/05/23 CHIEF COMPLAINT: Recurrent incisional ventral hernia with small bowel incarceration HISTORY OF PRESENT ILLNESS: Patient sitting up at bedside chair. She does complain of abdominal pain. She rates the pain as 7 out of 10 prior to pain medication and then after pain medication and goes down to 2 out of 10. She denies any nausea vomiting. She is having flatus. Afebrile. She started clear liquid diet this morning. She is postop day #2 Robotic-assisted daVinci Xi laparoscopic reduction and repair of recurrent incarcerated incisional hernia involving small bowel 5 x 5 centimeters, left lower quadrant without mesh and lysis of adhesions. Afebrile. PHYSICAL EXAM: VITAL SIGNS: Reviewed GENERAL: Well-developed in no acute distress. HEENT: No sclera icterus. Extraocular movements grossly intact. Moist buccal mucosa. Head is atraumatic, normocephalic. Hears conversational speech. No nasal dr ainage. NECK: Supple without lymphadenopathy. CHEST: Non-labored respirations and equal bilateral excursions. CARDIOVASCULAR: Palpable 2+ radial pulses. ABDOMEN: Soft. Nondistended. Nontender. MUSCULOSKELETAL: No clubbing or cyanosis. NEUROLOGIC: No focal or lateralizing signs. Cranial nerves II through XII grossly intact. PSYCH: Appropriate affect. Alert and oriented to person, place and time. SKIN: Well perfused. Good skin turgor. ASSESSMENT: 1. Recurrent incisional ventral hernia with small bowel incarceration 2. Morbid obesity due to excess calories, BMI 42.3 3. Hypertensive heart disease 4. Rheumatoid arthritis 5. Intra-abdominal peritoneal adhesions 6. Small bowel obstruction due to incisional hernia, recurrent PLAN: -Add oral Tylenol scheduled for pain control -Continue clear liquids -Encouraged patient to increase activity level -Continue pain management -Incentive spirometer ordered -GI prophylaxis Protonix and DVT prophylaxis subcu heparin Physician Scarfing Machine Operator note has been reviewed by physician. Signing provider agrees with the documented findings, assessment, and plan of care. CHIEF COMPLAINT: Bowel obstruction HISTORY OF PRESENT ILLNESS: The patient is a 77-year-old female status post bowel obstruction from incisional hernia. She is tolerating diet. Pain controlled. She is passing flatus. REVIEW OF ORGAN SYSTEMS: CONSTITUTIONAL: No fevers or chills. Morbid obesity, BMI 41.3 GASTROINTESTINAL: Has change in bowel habits. PHYSICAL EXAM: VITALS: Reviewed CONSTITUTIONAL: Well developed and in no acute distress. EYES: Conjuctivae without sclera icterus. Extraocular movements grossly intact. HEAD, EARS, NOSE, THROAT: Moist buccal mucosa. Head is atraumatic, normocephalic. Hears conversational speech. No nasal drainage. RESPIRATORY: Non-labored respirations and equal bilateral excursions. No gross wheezes. CARDIOVASCULAR: Palpable 2+ radial pulses. ABDOMEN: Incarcerated bowel of ventral hernia. MUSCULOSKELETAL: No clubbing cyanosis or edema. SKIN: Warm and well perfused with good skin turgor. NEUROLOGIC: Cranial nerves II through XII grossly intact. No focal or lateralizing signs. PSYCH: Appropriate affect. Alert and oriented to person, place and time. Displays appropriate insight. CLINCAL LABS: Reviewed. ECHO: Performed. ASSESSMENT: 1. Incarcerated ventral hernia with bowel obstruction 2. Abnormal EKG 3. Morbid obesity due to excess calories 4. Gastroesophageal reflux disease PLAN: 1. Start low fiber diet 2. Discharge to rehab when bed available. Objective - Vital Signs Vital signs: Vital Signs Temp 98.1 F 01/05/23 06:18 Pulse 69 01/05/23 06:18 Resp 18 01/05/23 06:18 BP 128/80 01/05/23 06:18 Pulse Ox 98 01/05/23 06:18 FiO2 Intake & Output 01/04/23 01/05/23 01/05/23 18:59 06:59 18:59 Intake Total 600 Output Total 250 300 Balance -250 -300 600 Intake: Oral 600 Output: Urine 250 300 Other: Voiding Method Bedside Commode External Catheter Bedside Commode Diaper Diaper # Voids 1 2 1 - Labs CBC & Chem 7: 01/02/23 06:18 01/02/23 06:18
[2023-01-05] MEDS: ACETAMINOPHEN TAB 500 MG TAB PO SCH ×2 (18:15→23:11)
--- NOTE | 2023-01-05 21:03 | P.PN ---
Subjective Patient is 77-year-old female with past medical history significant for hypertension, obesity, ventral hernia who presented to the ER because of com plaining of abdominal fullness and distention. She denied any complaint of any nausea or vomiting. Patient last bowel movement was 2 days ago, patient denied passing any gas. Patient had a CT abdomen and pelvis which showed small bowel containing ventral abdominal hernia with extreme bowel dilation concerning for obstruction. General surgery consulted, they evaluated the patient and recommended exploratory laparotomy. Internal medicine team was consulted for medical management 01/04. Patient seen and examined. Currently laying comfortably in the bed. Denies any abdominal pain, denies any nausea or vomiting I am resuming the care of the patient on 01/05/2023 This is a pleasant 77 years old female with multiple medical problems admitted with abdominal pain and she has evidence of incarcerated ventral hernia on CAT scan of the abdomen and clinical examination status post robotic-assisted laparoscopic reduction and repair of incarcerated incisional hernia on 01/03. Today is postop day #2. Patient generally doing well, her abdominal pain is controlled and she tolerates liquid diet, she does not have bowel movement but she is passing gases. She denies chest pain or dyspnea and she is hemodynamically stable. Patient informed about the finding of her right dermoid cyst with fat fluid level 8.9 cm 9.2 cm, she is stating she does not follow up with tissue coordinator before and she was not aware of what her this cyst, patient was instructed to follow up with tissue coordinator in 1-2 weeks after discharge or as an inpatient, patient verbalized understanding and acceptance Also patient evaluated by claim specialist on this admission, echocardiogram showed ejection fraction of 50-55% with severe left ventricular wall thickening and severe right ventricular dilatation with recommendation for her for outpatient follow-up and she is agreeable Objective - Vital Signs Vital signs: Vital Signs Temp 98.1 F 01/05/23 06:18 Pulse 69 01/05/23 06:18 Resp 18 01/05/23 06:18 BP 128/80 01/05/23 06:18 Pulse Ox 98 01/05/23 06:18 FiO2 Intake & Output 01/04/23 01/05/23 01/05/23 18:59 06:59 18:59 Intake Total 600 Output Total 250 300 Balance -250 -300 600 Intake: Oral 600 Output: Urine 250 300 Other: Voiding Method Bedside Commode External Catheter Bedside Commode Diaper Diaper # Voids 1 2 1 - Exam GENERAL: The patient is alert and oriented x3, not in any acute distress. Well developed, well nourished. HEENT: Pupils are round and equally reacting to light. EOMI. No scleral icterus. No conjunctival pallor. Normocephalic, atraumatic. No pharyngeal erythema. No thyromegaly. CARDIOVASCULAR: S1 and S2 present. No murmurs, rubs, or gallops. PULMONARY: Chest is clear to auscultation, no wheezing or crackles. -ABDOMEN: Soft, nontender, nondistended, normoactive bowel sounds. No palpable organomegaly. Abdomen incisional wound is closed and healing, dressing in place, rest of exam is deferred to surgery team MUSCULOSKELETAL: No joint swelling or deformity. EXTREMITIES: No cyanosis, clubbing, or pedal edema. NEUROLOGICAL: Gross neurological examination did not reveal any focal deficits. SKIN: No rashes. no petechiae. - Labs CBC & Chem 7: 01/02/23 06:18 01/02/23 06:18 Assessment and Plan Assessment: Incarcerated ventral hernia status post robotic-assisted laparoscopic reduction and repair of her incarcerated ventral hernia with small bowel. 2 days' postop day #2 Right dermoid cyst with fat fluid level 8.9 cm 9.2 cm. 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 severe right ventricular dilatation with normal ejection fraction Morbid obesity First-degree AV block, symptomatic History of rheumatoid arthritis, currently not an active issue and she is not on medication Plan: Continue with advancing diet per surgery team, currently on liquid diet Continue with pain medication Surgery primary team on the case We recommend gynecological evaluation, patient informed and she agrees for her right ovarian cyst We recommend outpatient follow up with claim specialist Dr. Kay, discharge instruction is provided Labs and medication were reviewed.. Continue same treatment. Continue with symptomatic treatment. Resume home medication. Monitor labs and vitals. DVT a nd GI prophylaxis. Further recommendations as per clinical course of the patient DVT prophylaxis: Subcutaneous heparin GI Prophylaxis: Ppi Thank you for consulting us
[2023-01-06] MEDS: MORPHINE SULFATE 4 MG/ML SYRINGE IV PRN (02:48)
[2023-01-06] MEDS: ACETAMINOPHEN TAB 500 MG TAB PO SCH ×2 (06:20→14:01)
[2023-01-06] MEDS: SODIUM CHLORIDE 0.9% 1,000 ML IV SCH ×3 (06:21→13:59)
[2023-01-06] MEDS: HEPARIN SODIUM,PORCINE/PF 5,000 UNIT/0.5 ML SYRINGE SQ SCH (08:55)
[2023-01-06] MEDS: LISINOPRIL-HCTZ 20-25 MG 1 EACH TAB PO SCH (08:55)
[2023-01-06] MEDS: PANTOPRAZOLE 40 MG/10 ML VIAL IVP SCH (09:12)
--- NOTE | 2023-01-06 11:24 | P.DS ---
Providers Date of admission: 01/03/23 13:43 Expected date of discharge: 01/06/23 Attending physician: Porsha Reynolds Consults: 01/01/23 17:30 Consult Physician Routine Consulting Provider: [facility] Consult Reason/Comments: cardiac clearance Do you want consulting provider notified?: Yes 01/02/23 16:26 Consult Physician Routine Consulting Provider: Calixto Weir Consult Reason/Comments: Medical Management Do you want consulting provider notified?: Yes Primary care physician: Yajaira Frost Hospital Course: Discharge diagnosis 1. Recurrent incisional ventral hernia with small bowel incarceration 2. Morbid obesity due to excess calories, BMI 42.3 3. Hypertensive heart disease 4. Rheumatoid arthritis 5. Intra-abdominal peritoneal adhesions 6. Small bowel obstruction due to incisional hernia, recurrent Hospital course This is a 77-year-old female who presented to the hospital with complaints of abdominal pain. She has history of ventral hernia 2 years ago. Imaging had demonstrated bowel obstruction since her admission. Patient is status post Robotic-assisted daVinci Xi laparoscopic reduction and repair of recurrent incarcerated incisional hernia involving small bowel 5 x 5 centimeters, left lower quadrant without mesh and lysis of adhesions. Patient tolerated surgery well. Pain is controlled. She is tolerating diet. She is having flatus. She is working with physical therapy and is requiring rehab placement. She is afebrile. She is stable for discharge. Physician Yarding Engineer note has been reviewed by physician. Signing provider agrees with the documented findings, assessment, and plan of care. CHIEF COMPLAINT: Bowel obstruction HISTORY OF PRESENT ILLNESS: The patient is a 77-year-old female status post bowel obstruction from incisional hernia. She is tolerating regular diet and having bowel movements. She has appropriated mild incisional pain. REVIEW OF ORGAN SYSTEMS: CONSTITUTIONAL: No fevers or chills. Morbid obesity, BMI 41.3 GASTROINTESTINAL: Has change in bowel habits. PHYSICAL EXAM: VITALS: Reviewed CONSTITUTIONAL: Well developed and in no acute distress. EYES: Conjuctivae without sclera icterus. Extraocular movements grossly intact. HEAD, EARS, NOSE, THROAT: Moist buccal mucosa. Head is atraumatic, normocephalic. Hears conversational speech. No nasal drainage. RESPIRATORY: Non-labored respirations and equal bilateral excursions. No gross wheezes. CARDIOVASCULAR: Palpable 2+ radial pulses. ABDOMEN: Abdominal binder intact. Incisions intact. No recurrent hernia. Abdomen obese MUSCULOSKELETAL: No clubbing cyanosis or edema. SKIN: Warm and well perfused with good skin turgor. NEUROLOGIC: Cranial nerves II through XII grossly intact. No focal or lateralizing signs. PSYCH: Appropriate affect. Alert and oriented to person, place and time. Displays appropriate insight. CLINCAL LABS: Reviewed. ASSESSMENT: 1. Incarcerated ventral hernia with bowel obstruction 2. Abnormal EKG 3. Morbid obesity due to excess calories 4. Gastroesophageal reflux disease PLAN: 1. Stable for discharge with outpatient telehealth follow up 2. Lifting restrictions 4 pounds in 4 weeks. Patient Condition at Discharge: Stable Plan - Discharge Summary New Discharge Prescriptions: New Acetaminophen Tab [Tylenol] 1,000 mg PO Q6HR PRN #30 tablet PRN Reason: Pain Continue Cholecalciferol [Vitamin D3 (25 Mcg = 1000 Iu)] 25 mcg PO DAILY Lisinopril-Hctz 20-25 mg [Zestoretic 20-25] 1 tab PO DAILY Discontinued Acetaminophen [Tylenol Arthritis] 1,300 mg PO BID Discharge Medication List Cholecalciferol [Vitamin D3 (25 Mcg = 1000 Iu)] 25 mcg PO DAILY 06/16/21 [History] Lisinopril-Hctz 20-25 mg [Zestoretic 20-25] 1 tab PO DAILY 06/16/21 [History] Acetaminophen Tab [Tylenol] 1,000 mg PO Q6HR PRN #30 tablet 01/06/23 [Rx] Follow up Appointment(s)/Referral(s): Lakhwinder Kay DO [STAFF PHYSICIAN] - 2 Weeks (movie actor ) Angy Shabazz DO [Doctor of Osteopathic Medicine] - 1 Week (lining cleaner for your overian cyst) Porsha Reynolds MD [STAFF PHYSICIAN] - 01/11/23 Porsha Pinedo MD [STAFF PHYSICIAN] - 1 Week (lining cleaner for your overian cyst) Yajaira Frost MD [Primary Care Provider] - 1-2 days Activity/Diet/Wound Care/Special Instructions: Wear abdominal binder at all times for comfort. No lifting over 4 pounds in 4 weeks You May shower. No bath tub soaks for two weeks Use Tylenol scheduled for the next 24-48 hours for best pain relief. continue low fiber diet Discharge Disposition: TRANSFER TO SNF/ECF
--- NOTE | 2023-01-06 13:38 | P.PN ---
Subjective Patient is 77-year-old female with past medical history significant for hypertension, obesity, ventral hernia who presented to the ER because of com plaining of abdominal fullness and distention. She denied any complaint of any nausea or vomiting. Patient last bowel movement was 2 days ago, patient denied passing any gas. Patient had a CT abdomen and pelvis which showed small bowel containing ventral abdominal hernia with extreme bowel dilation concerning for obstruction. General surgery consulted, they evaluated the patient and recommended exploratory laparotomy. Internal medicine team was consulted for medical management 01/04. Patient seen and examined. Currently laying comfortably in the bed. Denies any abdominal pain, denies any nausea or vomiting I am resuming the care of the patient on 01/05/2023 This is a pleasant 77 years old female with multiple medical problems admitted with abdominal pain and she has evidence of incarcerated ventral hernia on CAT scan of the abdomen and clinical examination status post robotic-assisted laparoscopic reduction and repair of incarcerated incisional hernia on 01/03. Today is postop day #2. Patient generally doing well, her abdominal pain is controlled and she tolerates liquid diet, she does not have bowel movement but she is passing gases. She denies chest pain or dyspnea and she is hemodynamically stable. Patient informed about the finding of her right dermoid cyst with fat fluid level 8.9 cm 9.2 cm, she is stating she does not follow up with medicaid collection specialist before and she was not aware of what her this cyst, patient was instructed to follow up with medicaid collection specialist in 1-2 weeks after discharge or as an inpatient, patient verbalized understanding and acceptance Also patient evaluated by dump motorman on this admission, echocardiogram showed ejection fraction of 50-55% with severe left ventricular wall thickening and severe right ventricular dilatation with recommendation for her for outpatient follow-up and she is agreeable 01/06/2023 Patient clinically is doing well, she is a pleasant, relaxed, denies chest pain or dyspnea, no vomiting, she tolerates that well, she says that her abdomen is fine with no pain or tenderness, She is hemodynamically stable. With fever 99.72 days ago on 10/06, no more fevers since then. No leukocytosis Patient was on antibiotics cefazolin, we'll defer to surgery to management of antibiotic Again at discussed with the patient her finding of dermoid cyst and recommended gynecological evaluation, patient wants to follow up as an outpatient rather than an outpatient and she wants to make her own appointment as her son is going to travel to [facility] and patient is not sure when he will be able to take her to her appointments but she agrees to follow up with medicaid collection specialist in 1-2 weeks and to names are suggested for her Dr. Pinedo and Dr. Shabazz and patient is agreeable. Also patient was instructed to follow up with dump motorman Dr. Kay in 1-2 weeks and she agrees, she will make her own appointment as well and she has a scarred as well at bedside. Objective - Vital Signs Vital signs: Vital Signs Temp 98.2 F 01/06/23 06:33 Pulse 80 01/06/23 06:33 Resp 17 01/06/23 10:57 BP 162/92 01/06/23 06:33 Pulse Ox 95 01/06/23 08:42 FiO2 Intake & Output 01/05/23 01/06/23 01/06/23 18:59 06:59 18:59 Intake Total 1320 240 Output Total 800 1000 700 Balance 520 -1000 -460 Intake: Oral 1320 240 Output: Urine 800 1000 700 Other: Voiding Method Bedside Commode Diaper Bedside Commode Diaper External Catheter External Catheter # Voids 1 2 - Exam GENERAL: The patient is alert and oriented x3, not in any acute distress. Well developed, well nourished. HEENT: Pupils are round and equally reacting to light. EOMI. No scleral icterus. No conjunctival pallor. Normocephalic, atraumatic. No pharyngeal erythema. No th yromegaly. CARDIOVASCULAR: S1 and S2 present. No murmurs, rubs, or gallops. PULMONARY: Chest is clear to auscultation, no wheezing or crackles. -ABDOMEN: Soft, nontender, nondistended, normoactive bowel sounds. No palpable organomegaly. Abdomen incisional wound is closed and healing, dressing in place, rest of exam is deferred to surgery team MUSCULOSKELETAL: No joint swelling or deformity. EXTREMITIES: No cyanosis, clubbing, or pedal edema. NEUROLOGICAL: Gross neurological examination did not reveal any focal deficits. SKIN: No rashes. no petechiae. - Labs CBC & Chem 7: 01/02/23 06:18 01/02/23 06:18 Assessment and Plan Assessment: Incarcerated ventral hernia status post robotic-assisted laparoscopic reduction and repair of her incarcerated ventral hernia with small bowel. 2 days' postop day #2 Right dermoid cyst with fat fluid level 8.9 cm 9.2 cm. 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 severe right ventricular dilatation with normal ejection fraction Morbid obesity First-degree AV block, symptomatic History of rheumatoid arthritis, currently not an active issue and she is not on medication Plan: Continue with advancing diet per surgery team, Continue with pain medication Surgery primary team on the case We recommend gynecological evaluation, patient informed and she agrees for her right ovarian cyst (patient informed and details, see above) risks including but not limited to cancer are explained for the patient and she is agreeable We recommend outpatient follow up with dump motorman Dr. Kay, discharge instruction is provided Labs and medication were reviewed.. Continue same treatment. Continue with symptomatic treatment. Resume home medication. Monitor labs and vitals. DVT and GI prophylaxis. Further recommendations as per clinical course of the patient DVT prophylaxis: Subcutaneous heparin GI Prophylaxis: Ppi patient is medically stable We recommend patient follow up with PCP Dr. Frost in 1 week after discharge and she was instructed with the same Thank you for consulting us
[2023-01-06 16:41] VITALS: BP 133/74; PULSE 86; RESP 16; TEMP 98.9
== END 2023-01-06 17:27 | DRG 336 ==
LOC: EC 12:02 → 6NMEDSUR 17:30 → OBSVTOIN 01-03 13:43
PROVIDERS: ADMIT Surgery Plastic and Reconstructive Surgery; ATTEND Surgery Plastic and Reconstructive Surgery
PROC: 0WQF4ZZ Repair Abdominal Wall, Percutaneous Endoscopic Approach (ICD-10-PCS; 2023-01-03)
PROC: 8E0W4CZ Robotic Assisted Procedure of Trunk Region, Percutaneous Endoscopic Approach (ICD-10-PCS; 2023-01-03)
PROC: 3E0T3BZ Introduction of Anesthetic Agent into Peripheral Nerves and Plexi, Percutaneous Approach (ICD-10-PCS; 2023-01-03)
PROC: 0DN84ZZ Release Small Intestine, Percutaneous Endoscopic Approach (ICD-10-PCS; principal; 2023-01-03 10:15)
DX: K43.0 Incisional hernia with obstruction, without gangrene (principal); Z68.41 Body mass index [BMI] 40.0-44.9, adult; D27.0 Benign neoplasm of right ovary; E66.01 Morbid (severe) obesity due to excess calories; I11.9 Hypertensive heart disease without heart failure; M06.9 Rheumatoid arthritis, unspecified; K21.9 Gastro-esophageal reflux disease without esophagitis; K66.0 Peritoneal adhesions (postprocedural) (postinfection); R01.1 Cardiac murmur, unspecified; I49.1 Atrial premature depolarization; M19.90 Unspecified osteoarthritis, unspecified site; I44.0 Atrioventricular block, first degree; Z96.653 Presence of artificial knee joint, bilateral; Z87.891 Personal history of nicotine dependence; Z87.19 Personal history of other diseases of the digestive system; Z88.0 Allergy status to penicillin; Z88.6 Allergy status to analgesic agent; Z79.1 Long term (current) use of non-steroidal anti-inflammatories (NSAID); Z79.899 Other long term (current) drug therapy; Z28.310 Unvaccinated for COVID-19
CPT/HCPCS: 36415; 64999; 74177; 76942; 80048; 80053; 81001; 82150; 83605; 83690; 85025; 85610; 85730; 93005; 93306; 94760; 96361; 96374; 96375; 99285

== ENCOUNTER 2023-01-13 15:00 | Emergency (ER) | payer MEDICARE ==
[2023-01-13] MEDS ORDERED: SODIUM CHLORIDE 0.9% 500 ML 500 ML IV STA (15:19)
--- NOTE | 2023-01-13 15:40 | ED ---
Recheck HPI - General Chief Complaint: Recheck/Abnormal Lab/Rx Stated Complaint: Abnormal Labs Time Seen by Provider: 01/13/23 15:13 Source: patient, EMS, RN notes reviewed, old records reviewed Mode of arrival: EMS Limitations: no limitations - History of Present Illness Initial Comments: This is a 77-year-old female to the emergency department today today. Patient presents today for evaluation regards to abnormal outpatient lab tests. Since evaluation today is 4 apparently low potassium level. Patient abnormal outpatient lab tests, patient is a postop patient may have had outpatient fever. She is without complaint here in the ER and is a DO NOT RESUSCITATE no code patient MD Complaint: abnormal lab (Low potassium), other (Possible fever) -: unknown Symptoms Since Prior Visit: no new symptoms Context: called for abnormal lab result Associated Symptoms: none, fever (Possible) Treatments Prior to Arrival: other (0) - Related Data Home Medications Medication Instructions Recorded Confirmed Cholecalciferol [Vitamin D3 (25 25 mcg PO DAILY 06/16/21 01/13/23 Mcg = 1000 Iu)] Lisinopril-Hctz 20-25 mg 1 tab PO DAILY 06/16/21 01/13/23 [Zestoretic 20-25] traMADol HCL 50 mg PO TID PRN 01/13/23 01/13/23 Previous Rx's Medication Instructions Recorded Acetaminophen Tab [Tylenol] 1,000 mg PO Q6HR PRN #30 tablet 01/06/23 Allergies Allergy/AdvReac Type Severity Reaction Status Date / Time amoxicillin Allergy Rash/Hives Verified 01/13/23 15:29 ibuprofen Allergy Rash/Hives/ Verified 01/13/23 15:29 ulcer Penicillins Allergy Rash/Hives Verified 01/13/23 15:29 Review of Systems ROS Statement: Those systems with pertinent positive or pertinent negative responses have been documented in the HPI. ROS Other: All systems not noted in ROS Statement are negative. Past Medical History Past Medical History: Hypertension, Osteoarthritis (OA), Rheumatoid Arthritis (RA) Additional Past Medical History / Comment(s): hernia, hx ulcer 1995, gallstones, urinary frequency History of Any Multi-Drug Resistant Organisms: None Reported Past Surgical History: Hernia Repair, Joint Replacement Additional Past Surgical History / Comment(s): viola cataract sx with lens, bl eeding ulcer sx, viola knee replacement, "abdominal surgery"-not sure what was done, Past Anesthesia/Blood Transfusion Reactions: No Reported Reaction Past Psychological History: No Psychological Hx Reported Smoking Status: Former smoker Past Alcohol Use History: None Reported Past Drug Use History: None Reported - Past Family History Mother Family Medical History: No Reported History Additional Family Medical History / Comment(s): . General Exam Limitations: no limitations General appearance: alert, in no apparent distress Head exam: Present: atraumatic, normocephalic, normal inspection Eye exam: Present: normal appearance, PERRL, EOMI. Absent: scleral icterus, conjunctival injection, periorbital swelling ENT exam: Present: normal exam, mucous membranes moist Neck exam: Present: normal inspection. Absent: tenderness, meningismus, lymphadenopathy Respiratory exam: Present: normal lung sounds bilaterally. Absent: respiratory distress, wheezes, rales, rhonchi, stridor Cardiovascular Exam: Present: regular rate, normal rhythm, normal heart sounds. Absent: systolic murmur, diastolic murmur, rubs, gallop, clicks GI/Abdominal exam: Present: soft, normal bowel sounds. Absent: distended, tenderness, guarding, rebound, rigid Extremities exam: Present: normal inspection, full ROM, normal capillary refill. Absent: tenderness, pedal edema, joint swelling, calf tenderness Back exam: Present: normal inspection Neurological exam: Present: alert, oriented X3, CN II-XII intact Psychiatric exam: Present: normal affect, normal mood Skin exam: Present: warm, dry, intact, normal color. Absent: rash Course Vital Signs 01/13/23 01/13/23 01/13/23 15:04 15:11 15:30 Temperature 98.0 F Pulse Rate 74 73 Respiratory 16 16 Rate Blood Pressure 115/61 115/61 O2 Sat by Pulse 95 94 L Oximetry 01/13/23 01/13/23 01/13/23 16:00 16:30 17:00 Temperature Pulse Rate 90 70 67 Respiratory 16 15 15 Rate Blood Pressure 110/68 106/66 104/55 O2 Sat by Pulse 95 Oximetry 01/13/23 01/13/23 01/13/23 17:30 18:00 18:30 Temperature Pulse Rate 71 69 89 Respiratory 15 16 16 Rate Blood Pressure 107/65 98/61 104/63 O2 Sat by Pulse Oximetry 01/13/23 19:00 Temperature Pulse Rate 90 Respiratory 15 Rate Blood Pressure 120/63 O2 Sat by Pulse Oximetry - Reevaluation(s) Reevaluation #1: 01/13/23 18:06 Medical record is reviewed Reevaluation #2: 01/13/23 18:06 Patient informed results and questions answered Reevaluation #3: 01/13/23 18:06 No change in symptoms here in the ER Reevaluation #4: 01/13/23 18:06 Was pt. sent in by a medical professional or institution? @ -no Did you speak to anyone other than the patient for history? @ -no Did you review nursing and triage notes? @ -agree Were old charts reviewed? @ -yes transfer and labs from F Differential Diagnosis? @ -weak,Fever EKG interpreted by me (3pts min.)? @ -yes X-rays interpreted by me (1pt min.)? @ -yes CT interpreted by me (1pt min.)? @ -no U/S interpreted by me (1pt. min.)? @ -no What testing was considered but not performed? (CT, X-rays, U/S, labs)? Why? @ -no What meds were considered but not given? Why? @ -no Did you discuss the management of the patient with other professionals? @ -no Did you reconcile home meds? @ -no Was smoking cessation discussed for >3mins.? @ -no Was critical care preformed (if so, how long)? @ -no Were there social determinants of health that impacted care today? How? (Homelessness, low income, unemployed, alcoholism, drug addiction, transportation, low edu. Level, literacy, decrease access to med. care, group home, rehab)? @ -no Was there de-escalation of care discussed even if they declined? (Discuss DNR or withdrawal of care, Hospice)? @ -no What co-morbidities impacted this encounter? (DM, HTN, Smoking, COPD, CAD, Cancer, CVA, Hep., AIDS, mental health diagnosis, sleep apnea, morbid obesity)? @ -no Was patient admitted / discharged? @ -dc Undiagnosed new problem with uncertain prognosis? @ -no Drug Therapy requiring intensive monitoring for toxicity (Heparin, Nitro, Insulin, Cardizem)? @ -no Were any procedures done? @ -no Diagnosis/symptom? @ -weak,fever,dyspnea Acute, or Chronic, or Acute on Chronic? @ -acute Uncomplicated (without systemic symptoms) or Complicated (systemic symptoms)? @ -uncomplicated Side effects of treatment? @ -no Exacerbation, Progression, or Severe Exacerbation] @ -no Poses a threat to life or bodily function? @ -no Reevaluation #5: 01/13/23 18:06 Differential Weakness: Hypoglycemia, shock, sepsis, hyponatremia, anemia, infection, DC, ETOH, adverse medicine reaction, overdose, stroke, this is not meant to be an all-inclusive list. 01/13/23 18:06 Differential Fever: Pneumonia, viral URI, endocarditis, myocarditis, pericarditis, otitis, sinusitis, peritonsillar Abscess, retropharyngeal Abscess, epiglottitis, peritonitis, appendicitis, Dipika cystitis, diverticulitis, hepatitis, colitis, UTI, PID, TOA, pyelonephritis, prostatitis, epididymitis, meningitis, encephalitis, pulmonary embolism, CVA, thyroid storm, pancreatitis, adrenal crisis, cavernous sinus thrombosis, this is not meant to be an all-inclusive list. Medical Decision Making - Medical Decision Making 77 female to the emergency department for evaluation of abnormal outpatient labs, patient is low potassium which is replaced here in the ER apparently may have had a fever but no cause a fever found here in the ER patient is postop patient although wounds are clean dry and intact, no abdominal tenderness - Lab Data Result diagrams: 01/13/23 15:36 01/13/23 15:36 Lab Results 01/13/23 01/13/23 01/13/23 Range/Units 15:36 15:36 15:36 WBC 15.5 H (3.8-10.6) k/uL RBC 4.25 (3.80-5.40) m/uL Hgb 12.3 (11.4-16.0) gm/dL Hct 36.7 (34.0-46.0) % MCV 86.5 (80.0-100.0) fL MCH 29.0 (25.0-35.0) pg MCHC 33.6 (31.0-37.0) g/dL RDW 13.9 (11.5-15.5) % Plt Count 368 (150-450) k/uL MPV 10.0 Neutrophils % 82 % Lymphocytes % 8 % Monocytes % 8 % Eosinophils % 1 % Basophils % 0 % Neutrophils # 12.6 H (1.3-7.7) k/uL Lymphocytes # 1.3 (1.0-4.8) k/uL Monocytes # 1.2 H (0-1.0) k/uL Eosinophils # 0.1 (0-0.7) k/uL Basophils # 0.0 (0-0.2) k/uL Sodium 132 L (137-145) mmol/L Potassium 3.5 (3.5-5.1) mmol/L Chloride 83 L (98-107) mmol/L Carbon Dioxide 40 H (22-30) mmol/L Anion Gap 9 mmol/L BUN 29 H (7-17) mg/dL Creatinine 0.77 (0.52-1.04) mg/dL Est GFR (CKD-EPI)AfAm 86 (>60 ml/min/1.73 sqM) Est GFR (CKD-EPI)NonAf 75 (>60 ml/min/1.73 sqM) Glucose 116 H (74-99) mg/dL Calcium 8.4 (8.4-10.2) mg/dL Phosphorus 3.3 (2.5-4.5) mg/dL Magnesium 2.5 H (1.6-2.3) mg/dL Total Bilirubin 1.7 H (0.2-1.3) mg/dL AST 100 H (14-36) U/L ALT 30 (4-34) U/L Alkaline Phosphatase 77 (38-126) U/L Troponin I 0.018 (0.000-0.034) ng/mL Total Protein 6.9 (6.3-8.2) g/dL Albumin 3.2 L (3.5-5.0) g/dL Urine Color Urine Appearance (Clear) Urine pH (5.0-8.0) Ur Specific [place] (1.001-1.035) Urine Protein (Negative) Urine Glucose (UA) (Negative) Urine Ketones (Negative) Urine Blood (Negative) Urine Nitrite (Negative) Urine Bilirubin (Negative) Urine Urobilinogen (<2.0) mg/dL Ur Leukocyte Esterase (Negative) Urine RBC (0-5) /hpf Urine WBC (0-5) /hpf Urine WBC Clumps (None) /hpf Urine Bacteria (None) /hpf Urine Mucus (None) /hpf 01/13/23 Range/Units 18:23 WBC (3.8-10.6) k/uL RBC (3.80-5.40) m/uL Hgb (11.4-16.0) gm/dL Hct (34.0-46.0) % MCV (80.0-100.0) fL MCH (25.0-35.0) pg MCHC (31.0-37.0) g/dL RDW (11.5-15.5) % Plt Count (150-450) k/uL MPV Neutrophils % % Lymphocytes % % Monocytes % % Eosinophils % % Basophils % % Neutrophils # (1.3-7.7) k/uL Lymphocytes # (1.0-4.8) k/uL Monocytes # (0-1.0) k/uL Eosinophils # (0-0.7) k/uL Basophils # (0-0.2) k/uL Sodium (137-145) mmol/L Potassium (3.5-5.1) mmol/L Chloride (98-107) mmol/L Carbon Dioxide (22-30) mmol/L Anion Gap mmol/L BUN (7-17) mg/dL Creatinine (0.52-1.04) mg/dL Est GFR (CKD-EPI)AfAm (>60 ml/min/1.73 sqM) Est GFR (CKD-EPI)NonAf (>60 ml/min/1.73 sqM) Glucose (74-99) mg/dL Calcium (8.4-10.2) mg/dL Phosphorus (2.5-4.5) mg/dL Magnesium (1.6-2.3) mg/dL Total Bilirubin (0.2-1.3) mg/dL AST (14-36) U/L ALT (4-34) U/L Alkaline Phosphatase (38-126) U/L Troponin I (0.000-0.034) ng/mL Total Protein (6.3-8.2) g/dL Albumin (3.5-5.0) g/dL Urine Color Yellow Urine Appearance Turbid H (Clear) Urine pH 8.0 (5.0-8.0) Ur Specific [place] 1.020 (1.001-1.035) Urine Protein 3+ H (Negative) Urine Glucose (UA) Negative (Negative) Urine Ketones Negative (Negative) Urine Blood Trace H (Negative) Urine Nitrite Negative (Negative) Urine Bilirubin Negative (Negative) Urine Urobilinogen 6.0 (<2.0) mg/dL Ur Leukocyte Esterase Large H (Negative) Urine RBC 17 H (0-5) /hpf Urine WBC 32 H (0-5) /hpf Urine WBC Clumps Rare H (None) /hpf Urine Bacteria Few H (None) /hpf Urine Mucus Few H (None) /hpf - Radiology Data Radiology results: report reviewed (Chest x-rays negative for acute disease), image reviewed Disposition Clinical Impression: Hypokalemia, Weakness, DNR no code (do not resuscitate), UTI (urinary tract infection) Disposition: HOME SELF-CARE Condition: Fair Instructions (If sedation given, give patient instructions): Urinary Tract Infection in Women (ED) Is patient prescribed a controlled substance at d/c from ED?: No Referrals: Yajaira Frost MD [Primary Care Provider] - 1-2 days Time of Disposition: 18:20
[2023-01-13 16:25] LABS: Albumin 3.2 g/dL (3.5-5.0); Calcium 8.4 mg/dL (8.4-10.2); Magnesium 2.5 mg/dL (1.6-2.3); Phosphorus 3.3 mg/dL (2.5-4.5); Total Bilirubin 1.7 mg/dL (0.2-1.3); Total Protein 6.9 g/dL (6.3-8.2)
[2023-01-13 16:38] LABS: Potassium 3.5 mmol/L (3.5-5.1)
[2023-01-13 16:44] LABS: Basophils % (A) 0 %; Eosinophils # (A) 0.1 k/uL (0-0.7); Eosinophils % (A) 1 %; HCT 36.7 % (34.0-46.0); HGB 12.3 gm/dL (11.4-16.0); Lymphocytes # (A) 1.3 k/uL (1.0-4.8); Lymphocytes % (A) 8 %; MCHC 33.6 g/dL (31.0-37.0); MCV 86.5 fL (80.0-100.0); Monocytes # (A) 1.2 k/uL (0-1.0); Monocytes % (A) 8 %; Neutrophils # (A) 12.6 k/uL (1.3-7.7); Neutrophils % (A) 82 %; Platelet Count 368 k/uL (150-450); RBC 4.25 m/uL (3.80-5.40); RDW 13.9 % (11.5-15.5); WBC 15.5 k/uL (3.8-10.6)
[2023-01-13] MEDS ORDERED: POTASSIUM BICARBONATE/CIT AC 20 MEQ TABLET.EFF PO ONE ×2 (17:30→18:30)
--- NOTE | 2023-01-13 18:38 | XR ---
EXAMINATION: XR chest 1V DATE AND TIME: 01/13/2023 5:44 PM CLINICAL INDICATION: PHH; weak TECHNIQUE: AP upright portable COMPARISON: 03/23/2020 AP upright portable FINDINGS: The overlying soft tissues are prominent, and there is elevation of the right hemidiaphragm, similar to the prior study. There is a linear band of added opacity seen horizontally over the dome of the ri ght hemidiaphragm, consistent with discoid atelectasis. The visualized lung parenchyma is clear. The pleural spaces are negative. EKG leads. The cardiac silhouette is not enlarged. The remainder of the mediastinal silhouette is unr emarkable. The skeletal structures and soft tissues are negative for acute findings. IMPRESSION: Limited examination, but no definite acute radiographic process.
[2023-01-13 19:32] LABS: Appearance,Urine Turbid (Clear); Bacteria,Urine Few /hpf; Bilirubin,Urine Negative (Negative); Blood,Urine Trace (Negative); Color,Urine Yellow; Glucose,Urine (UA) Negative (Negative); Ketones,Urine Negative (Negative); Leukocyte Esterase,Urine Large (Negative); Mucus,Urine Few /hpf; Nitrite,Urine Negative (Negative); Protein,Urine 3+ (Negative); RBC,Urine 17 /hpf (0-5); WBC,Urine 32 /hpf (0-5)
[2023-01-13] MEDS ORDERED: CEPHALEXIN 500MG STARTER PACK 4 CAP BTL PO STA (19:57)
[2023-01-13] MEDS ORDERED: cefTRIAXone IN SWFI 1,000 MG/10 ML SYRINGE IVP STA (19:57)
[2023-01-13] MEDS ORDERED: CEPHALEXIN 500 MG CAP PO STA (19:57)
[2023-01-13 20:18] VITALS: BP 108/62; PULSE 100; RESP 16; TEMP 98.1
== END 2023-01-13 20:30 | disposition home or self-care (01) ==
LOC: EC 15:00
DX: E87.6 Hypokalemia (principal); N39.0 Urinary tract infection, site not specified; I10 Essential (primary) hypertension; Z66 Do not resuscitate; Z87.891 Personal history of nicotine dependence; Z88.0 Allergy status to penicillin; Z88.6 Allergy status to analgesic agent; Z79.899 Other long term (current) drug therapy
CPT/HCPCS: 36415; 80053; 83735; 84100; 84484; 85025; 81001; 87086; 87077; 87186; 71045; 99285; 96374; J0696; 93005

== ENCOUNTER 2023-01-31 16:27 | Observation (INO) | payer MEDICARE ==
--- NOTE | 2023-01-31 16:47 | ED ---
General Adult HPI - General Chief complaint: Weakness Stated complaint: Weakness Time Seen by Provider: 01/31/23 16:30 Source: patient, EMS, RN notes reviewed Mode of arrival: EMS Limitations: physical limitation - History of Present Illness Initial comments: Patient is a pleasant 78-year-old female presenting to the emergency department with concerns with weakness. Patient did have an abdominal hernia surgery done a month ago. Patient then went to [facility]. Patient was just getting to the point with physical therapy where she could start ambulating. Patient was discharged Tuesday however has not been able to a blade on her own since that time. Patient is not able to get out of bed since that time. Weakness is not new or changed but persistent. No headache. No confusion. No isolated area of weakness. No fever or recent illness. No abdominal pain. - Related Data Home Medications Medication Instructions Recorded Confirmed Lisinopril-Hctz 20-25 mg 1 tab PO DAILY 06/16/21 01/31/23 [Zestoretic 20-25] traMADol HCL 50 mg PO Q8H PRN 01/13/23 01/31/23 Diclofenac Sodium Gel [Voltaren 4 gm TOPICAL Q6H PRN 01/31/23 01/31/23 Gel] Potassium Chloride ER [K-Dur 10] 10 meq PO DAILY 01/31/23 01/31/23 Allergies Allergy/AdvReac Type Severity Reaction Status Date / Time amoxicillin Allergy Rash/Hives Verified 01/31/23 17:35 ibuprofen Allergy Rash/Hives/ Verified 01/31/23 17:35 ulcer Penicillins Allergy Rash/Hives Verified 01/31/23 17:35 Review of Systems ROS Statement: Those systems with pertinent positive or pertinent negative responses have been documented in the HPI. ROS Other: All systems not noted in ROS Statement are negative. Constitutional: Denies: fever Eyes: Denies: eye pain ENT: Denies: ear pain Respiratory: Denies: cough Cardiovascular: Denies: chest pain Endocrine: Denies: fatigue Gastrointestinal: Denies: abdominal pain Genitourinary: Denies: dysuria Musculoskeletal: Denies: back pain Skin: Denies: rash Neurological: Reports: as per HPI, weakness. Denies: headache, numbness, paresthesias, confusion Past Medical History Past Medical History: Hypertension, Osteoarthritis (OA), Rheumatoid Arthritis (RA) Additional Past Medical History / Comment(s): hernia, hx ulcer 1994, gallstones, urinary frequency History of Any Multi-Drug Resistant Organisms: None Reported Past Surgical History: Hernia Repair, Joint Replacement Additional Past Surgical History / Comment(s): viola cataract sx with lens, bleeding ulcer sx, viola knee replacement, "abdominal surgery"-not sure what was done, Past Anesthesia/Blood Transfusion Reactions: No Reported Reaction Past Psychological History: No Psychological Hx Reported Smoking Status: Former smoker Past Alcohol Use History: None Reported Past Drug Use History: None Reported - Past Family History Mother Family Medical History: No Reported History Additional Family Medical History / Comment(s): . General Exam Limitations: physical limitation General appearance: alert, in no apparent distress Head exam: Present: normocephalic Eye exam: Present: normal appearance, PERRL, EOMI ENT exam: Present: normal oropharynx Neck exam: Present: normal inspection. Absent: tenderness, meningismus Respiratory exam: Present: normal lung sounds bilaterally Cardiovascular Exam: Present: regular rate, normal rhythm GI/Abdominal exam: Present: soft. Absent: tenderness Extremities exam: Present: normal inspection, full ROM. Absent: tenderness Neurological exam: Present: alert, oriented X3, CN II-XII intact Expanded Motor strength exam: RUE: 4, LUE: 4, RLE: 4, LLE: 4 Eye Response: (4) open spontaneously Motor Response: (6) obeys commands Verbal Response: (5) oriented Psychiatric exam: Present: normal affect, normal mood Skin exam: Present: normal color Course Vital Signs 01/31/23 01/31/23 16:29 19:50 Temperature 98.3 F 98.4 F Pulse Rate 66 68 Respiratory 18 16 Rate Blood Pressure 123/90 130/76 O2 Sat by Pulse 95 98 Oximetry EKG Findings - EKG Results: EKG: interpreted by ERMD (l axis. Low voltage. Nonspecific T waves.), sinus rhythm Medical Decision Making - Medical Decision Making Was pt. sent in by a medical professional or institution (, PA, WEAVE ROOM SUPERVISOR, urgent care, hospital, or [facility]...) When possible be specific @ -No Did you speak to anyone other than the patient for history (EMS, parent, family, police, friend...)? What history was obtained from this source @ -EMS is present and helps provide history including recent discharge Did you review nursing and triage notes (agree or disagree)? Why? @ -I reviewed and agree with nursing and triage notes Were old charts reviewed (outside hosp., previous admission, EMS record, old EKG, old radiological studies, urgent care reports/EKG's, [facility] records)? Report findings @ -Of his admission reviewed Differential Diagnosis (chest pain, altered mental status, abdominal pain women, abdominal pain men, vaginal bleeding, weakness, fever, dyspnea, syncope, headache, dizziness, GI bleed, back pain, seizure, CVA, palpatations, mental health)? @ -Differential Weakness: Hypoglycemia, shock, sepsis, hyponatremia, anemia, infection, SC, ETOH, adverse medicine reaction, overdose, stroke, this is not meant to be an all-inclusive list. EKG interpreted by me (3pts min.). @ -As above X-rays interpreted by me (1pt min.). @ -Chest x-ray does not reveal acute abnormality. CT interpreted by me (1pt min.). @ -None done U/S interpreted by me (1pt. min.). @ -None done What testing was considered but not performed or refused? (CT, X-rays, U/S, labs)? Why? @ -None What meds were considered but not given or refused? Why? @ -None Did you discuss the management of the patient with other professionals (professionals i.e. , PA, WEAVE ROOM SUPERVISOR, lab, RT, psych nurse, social studies teacher, care management specialist, teacher, airport operations officer, case management manager)? Give summary @ -Case was discussed with Dr. stanton, who will admit covering Dr. Frost Was smoking cessation discussed for >3mins.? @ -No Was critical care preformed (if so, how long)? @ -No Were there social determinants of health that impacted care today? How? (Homelessness, low income, unemployed, alcoholism, drug addiction, transportation, low edu. Level, literacy, decrease access to med. care, [facility], rehab)? @ -No Was there de-escalation of care discussed even if they declined (Discuss DNR or withdrawal of care, Hospice)? DNR status @ -No What co-morbidities impacted this encounter? (DM, HTN, Smoking, COPD, CAD, Cancer, CVA, ARF, Chemo, Hep., AIDS, mental health diagnosis, sleep apnea, morbid obesity)? @ -None Was patient admitted / discharged? Hospital course, mention meds given and route, prescriptions, significant lab abnormalities, going to OR and other pertinent info. @ -Patient has general weakness, unable to ambulate and take care of herself at home. Patient will be admitted for probable placement. Patient also has urinary tract infection that will need treatment Undiagnosed new problem with uncertain prognosis? @ -No Drug Therapy requiring intensive monitoring for toxicity (Heparin, Nitro, Insulin, Cardizem)? @ -No Were any procedures done? @ -No Diagnosis/symptom? @ -UTI, weakness Acute, or Chronic, or Acute on Chronic? @ -Acute, acute Uncomplicated (without systemic symptoms) or Complicated (systemic symptoms)? @ -default Side effects of treatment? @ -No Exacerbation, Progression, or Severe Exacerbation? @ -No Poses a threat to life or bodily function? How? (Chest pain, USA, SC, pneumonia, PE, COPD, DKA, ARF, appy, cholecystitis, CVA, Diverticulitis, Homicidal, Suicidal, threat to staff... and all critical care pts) @ -No - Lab Data Result diagrams: 01/31/23 18:03 01/31/23 18:03 Lab Results 01/31/23 01/31/23 01/31/23 Range/Units 18:03 18:03 18:03 WBC 5.7 (3.8-10.6) k/uL RBC 4.87 (3.80-5.40) m/uL Hgb 14.2 (11.4-16.0) gm/dL Hct 43.0 (34.0-46.0) % MCV 88.3 (80.0-100.0) fL MCH 29.1 (25.0-35.0) pg MCHC 33.0 (31.0-37.0) g/dL RDW 13.6 (11.5-15.5) % Plt Count 241 (150-450) k/uL MPV 8.5 Neutrophils % 56 % Lymphocytes % 30 % Monocytes % 9 % Eosinophils % 2 % Basophils % 1 % Neutrophils # 3.2 (1.3-7.7) k/uL Lymphocytes # 1.7 (1.0-4.8) k/uL Monocytes # 0.5 (0-1.0) k/uL Eosinophils # 0.1 (0-0.7) k/uL Basophils # 0.1 (0-0.2) k/uL PT 10.7 (9.0-12.0) sec INR 1.0 (<1.2) APTT 23.8 (22.0-30.0) sec Sodium (137-145) mmol/L Potassium (3.5-5.1) mmol/L Chloride (98-107) mmol/L Carbon Dioxide (22-30) mmol/L Anion Gap mmol/L BUN (7-17) mg/dL Creatinine (0.52-1.04) mg/dL Est GFR (CKD-EPI)AfAm (>60 ml/min/1.73 sqM) Est GFR (CKD-EPI)NonAf (>60 ml/min/1.73 sqM) Glucose (74-99) mg/dL Plasma Lactic Acid Chilo (0.7-2.0) mmol/L Calcium (8.4-10.2) mg/dL Magnesium (1.6-2.3) mg/dL Total Bilirubin (0.2-1.3) mg/dL AST (14-36) U/L ALT (4-34) U/L Alkaline Phosphatase (38-126) U/L Troponin I (0.000-0.034) ng/mL Total Protein (6.3-8.2) g/dL Albumin (3.5-5.0) g/dL Urine Color Yellow Urine Appearance Turbid H (Clear) Urine pH 6.0 (5.0-8.0) Ur Specific [place] 1.020 (1.001-1.035) Urine Protein 1+ H (Negative) Urine Glucose (UA) Negative (Negative) Urine Ketones Negative (Negative) Urine Blood Moderate H (Negative) Urine Nitrite Positive H (Negative) Urine Bilirubin Negative (Negative) Urine Urobilinogen <2.0 (<2.0) mg/dL Ur Leukocyte Esterase Large H (Negative) Urine RBC 143 H (0-5) /hpf Urine WBC >182 H (0-5) /hpf Urine WBC Clumps Many H (None) /hpf Urine Bacteria Moderate H (None) /hpf Urine Mucus Few H (None) /hpf 01/31/23 01/31/23 01/31/23 Range/Units 18:03 18:03 18:03 WBC (3.8-10.6) k/uL RBC (3.80-5.40) m/uL Hgb (11.4-16.0) gm/dL Hct (34.0-46.0) % MCV (80.0-100.0) fL MCH (25.0-35.0) pg MCHC (31.0-37.0) g/dL RDW (11.5-15.5) % Plt Count (150-450) k/uL MPV Neutrophils % % Lymphocytes % % Monocytes % % Eosinophils % % Basophils % % Neutrophils # (1.3-7.7) k/uL Lymphocytes # (1.0-4.8) k/uL Monocytes # (0-1.0) k/uL Eosinophils # (0-0.7) k/uL Basophils # (0-0.2) k/uL PT (9.0-12.0) sec INR (<1.2) APTT (22.0-30.0) sec Sodium 134 L (137-145) mmol/L Potassium 4.3 (3.5-5.1) mmol/L Chloride 99 (98-107) mmol/L Carbon Dioxide 26 (22-30) mmol/L Anion Gap 9 mmol/L BUN 14 (7-17) mg/dL Creatinine 0.58 (0.52-1.04) mg/dL Est GFR (CKD-EPI)AfAm >90 (>60 ml/min/1.73 sqM) Est GFR (CKD-EPI)NonAf 89 (>60 ml/min/1.73 sqM) Glucose 101 H (74-99) mg/dL Plasma Lactic Acid Chilo 1.2 (0.7-2.0) mmol/L Calcium 9.2 (8.4-10.2) mg/dL Magnesium 1.9 (1.6-2.3) mg/dL Total Bilirubin 0.7 (0.2-1.3) mg/dL AST 29 (14-36) U/L ALT 15 (4-34) U/L Alkaline Phosphatase 60 (38-126) U/L Troponin I <0.012 (0.000-0.034) ng/mL Total Protein 7.0 (6.3-8.2) g/dL Albumin 3.7 (3.5-5.0) g/dL Urine Color Urine Appearance (Clear) Urine pH (5.0-8.0) Ur Specific [place] (1.001-1.035) Urine Protein (Negative) Urine Glucose (UA) (Negative) Urine Ketones (Negative) Urine Blood (Negative) Urine Nitrite (Negative) Urine Bilirubin (Negative) Urine Urobilinogen (<2.0) mg/dL Ur Leukocyte Esterase (Negative) Urine RBC (0-5) /hpf Urine WBC (0-5) /hpf Urine WBC Clumps (None) /hpf Urine Bacteria (None) /hpf Urine Mucus (None) /hpf Disposition Clinical Impression: UTI (urinary tract infection), Weakness Disposition: ADMITTED IP TO THIS HOSP Is patient prescribed a controlled substance at d/c from ED?: No Referrals: Yajaira Frost MD [Primary Care Provider] - 1-2 days Time of Disposition: 20:11
--- NOTE | 2023-01-31 17:20 | XR ---
EXAMINATION TYPE: XR chest 2V DATE OF EXAM: 01/31/2023 COMPARISON: Chest x-ray January 13, 2023 HISTORY: Weakness. TECHNIQUE: Frontal and lateral views of the chest are obtained. FINDINGS: Elevated right hemidiaphragm is redemonstrated. There is right basilar linear scarring and /or atelectasis. Low lung volumes redemonstrated. There is no suspicious new focal air space opacity, pleural effusion, or pneumothorax seen. The cardiac silhouette size remains enlarged. Degenerative change bilateral shoulders is redemonstrated.. IMPRESSION: Chronic changes and cardiomegaly without new acute pulmonary process.
[2023-01-31 18:56] LABS: Appearance,Urine Turbid (Clear); Bacteria,Urine Moderate /hpf; Bilirubin,Urine Negative (Negative); Blood,Urine Moderate (Negative); Color,Urine Yellow; Glucose,Urine (UA) Negative (Negative); Ketones,Urine Negative (Negative); Leukocyte Esterase,Urine Large (Negative); Mucus,Urine Few /hpf; Nitrite,Urine Positive (Negative); Protein,Urine 1+ (Negative); RBC,Urine 143 /hpf (0-5); Urobilinogen,Urine <2.0 mg/dL (<2.0); WBC,Urine >182 /hpf (0-5)
[2023-01-31 19:10] LABS: Basophils # (A) 0.1 k/uL (0-0.2); Basophils % (A) 1 %; Eosinophils # (A) 0.1 k/uL (0-0.7); Eosinophils % (A) 2 %; HGB 14.2 gm/dL (11.4-16.0); Lymphocytes # (A) 1.7 k/uL (1.0-4.8); Lymphocytes % (A) 30 %; MCH 29.1 pg (25.0-35.0); MCV 88.3 fL (80.0-100.0); Mean Platelet Volume 8.5; Monocytes # (A) 0.5 k/uL (0-1.0); Monocytes % (A) 9 %; Neutrophils # (A) 3.2 k/uL (1.3-7.7); Neutrophils % (A) 56 %; Platelet Count 241 k/uL (150-450); RBC 4.87 m/uL (3.80-5.40); RDW 13.6 % (11.5-15.5); WBC 5.7 k/uL (3.8-10.6)
[2023-01-31 19:24] LABS: Partial Thromboplastin Time 23.8 sec (22.0-30.0); Prothrombin Time 10.7 sec (9.0-12.0)
[2023-01-31 19:26] LABS: ALT 15 U/L (4-34); AST 29 U/L (14-36); African American GFR (CKD) >90 (>60 ml/min/1.73 sqM); Albumin 3.7 g/dL (3.5-5.0); Alkaline Phosphatase 60 U/L (38-126); Anion Gap 9 mmol/L; Blood Urea Nitrogen 14 mg/dL (7-17); Calcium 9.2 mg/dL (8.4-10.2); Carbon Dioxide 26 mmol/L (22-30); Chloride 99 mmol/L (98-107); Glucose 101 mg/dL (74-99); Magnesium 1.9 mg/dL (1.6-2.3); Non-African American GFR(CKD) 89 (>60 ml/min/1.73 sqM); Potassium 4.3 mmol/L (3.5-5.1); Sodium 134 mmol/L (137-145); Total Bilirubin 0.7 mg/dL (0.2-1.3)
[2023-01-31] MEDS ORDERED: NALOXONE 0.4 MG/ML 1 ML VIAL IV PRN (20:14)
[2023-01-31 20:23] LABS: T4, Free (Free Thyroxine) 1.53 ng/dL (0.78-2.19)
[2023-01-31] MEDS: ACETAMINOPHEN TAB 325 MG TAB PO PRN (20:54)
[2023-01-31] MEDS: SODIUM CHLORIDE 0.9% 1,000 ML IV SCH (21:01)
[2023-02-01] MEDS: ACETAMINOPHEN TAB 325 MG TAB PO PRN (05:16)
[2023-02-01] MEDS ORDERED: HYDROcodone/APAP 5-325MG 1 EACH TAB PO STA (10:31)
[2023-02-01] MEDS: SODIUM CHLORIDE 0.9% 1,000 ML IV SCH (13:51)
[2023-02-01] MEDS: traMADol 50 MG TAB PO PRN ×2 (14:25→21:37)
--- NOTE | 2023-02-01 14:49 | P.HPIM ---
History of Present Illness H&P Date: 02/01/23 This is a 78 year old female with medical history of hypertension, arthritis. Patient has recently underwent a abdominal hernia repair one month ago and discharged to subacute rehab. Patient had been discharged from rehab and has been at home since Tuesday. Patient reports being unable to lift herself up out of bed and has been primary bedrest since returning home. Reports weakness. Patient has urinary incontinence but did have an incident of bowel incontinence overnight on Tuesday which was an isolated incident. Patient required assistance at home to perform ADLs. Denies any fever/chills, no dysuria, urgency, or frequency. Denying abdominal pain, denying shortness of breath and no chest pain . Patient denies any nausea or vomiting. Came to the for further evaluation and initial work up reveals abnormal urine with positive nitrates, large leukocyte esterase and >182 WBCs. Patient is admitted for urinary tract infection and has been started on IV ceftriaxone. Patient is being hydrated. Patient has remained afebrile and there is no elevated white count on admission. Physical therapy will be consulted patient will likely require subacute rehab on discharge. REVIEW OF SYSTEMS: CONSTITUTIONAL: No fever, no malaise, no fatigue. HEENT: No recent visual problems or hearing problems. Denied any sore throat. CARDIOVASCULAR: No chest pain, orthopnea, PND, no palpitations, no syncope. PULMONARY: No shortness of breath, no cough, no hemoptysis. GASTROINTESTINAL: No diarrhea, no nausea, no vomiting, no abdominal pain. NEUROLOGICAL: No headaches, no weakness, no numbness. HEMATOLOGICAL: Denies any bleeding or petechiae. GENITOURINARY: Denies any burning micturition, frequency, or urgency. MUSCULOSKELETAL/RHEUMATOLOGICAL: Denies any joint pain, swelling, or any muscle pain. ENDOCRINE: Denies any polyuria or polydipsia. The rest of the 14-point review of systems is negative. PHYSICAL EXAMINATION: GENERAL: The patient is alert and oriented x3, not in any acute distress. Well developed, well nourished. Fatigued HEENT: Pupils are round and equally reacting to light. EOMI. No scleral icterus. No conjunctival pallor. Normocephalic, atraumatic. No pharyngeal erythema. No thyromegaly. CARDIOVASCULAR: S1 and S2 present. No murmurs, rubs, or gallops. PULMONARY: Chest is clear to auscultation, no wheezing or crackles. ABDOMEN: Soft, nontender, nondistended, normoactive bowel sounds. No palpable organomegaly. MUSCULOSKELETAL: No joint swelling or deformity. EXTREMITIES: No cyanosis, clubbing, or pedal edema. NEUROLOGICAL: Gross neurological examination did not reveal any focal deficits. Generalized weakness SKIN: No rashes. Assessment and plan Assessment Generalized weakness Acute Urinary tract infection present on admission, patient has been afebrile and no leukocytosis History of hypertension History of arthritis Hyponatremia, hypovolemic expected to improve with IV fluids Recent abdominal hernia repair GI prophylaxis DVT prophylaxis Plan Continue IV fluids Continue IV ceftriaxone and follow up urine cultures Recommending holding home blood pressure medication Repeat BMP in the AM PT/OT consultation in place patient will likely require subacute rehab on discharge The impression and plan of care has been dictated by Rosa Mcmillan Nurse Practitioner as directed. Dr. Ambika MD I have performed a history and physical examination and medical decision making of this patient, discussed the same with the dictator, and agree with the dictators assessment and plan as written, documented as a scribe. Based on total visit time, I have performed more than 50% of this visit. Past Medical History Past Medical History: Hypertension, Osteoarthritis (OA), Rheumatoid Arthritis (RA) Additional Past Medical History / Comment(s): hernia, hx ulcer 1994, gallstones, urinary frequency History of Any Multi-Drug Resistant Organisms: None Reported Past Surgical History: Hernia Repair, Joint Replacement Additional Past Surgical History / Comment(s): viola cataract sx with lens, bleeding ulcer sx, viola knee replacement, "abdominal surgery"-not sure what was done 2022, Past Anesthesia/Blood Transfusion Reactions: No Reported Reaction Past Psychological History: No Psychological Hx Reported Smoking Status: Former smoker Past Alcohol Use History: None Reported Additional Past Alcohol Use History / Comment(s): quit smoking 1967, smoked for 4 yrs Past Drug Use History: None Reported - Past Family History Mother Family Medical History: No Reported History Additional Family Medical History / Comment(s): . Medications and Allergies Home Medications Medication Instructions Recorded Confirmed Type Lisinopril-Hctz 20-25 mg 1 tab PO DAILY 06/16/21 01/31/23 History [Zestoretic 20-25] traMADol HCL 50 mg PO Q8H PRN 01/13/23 01/31/23 History Diclofenac Sodium Gel [Voltaren 4 gm TOPICAL Q6H PRN 01/31/23 01/31/23 History Gel] Potassium Chloride ER [K-Dur 10] 10 meq PO DAILY 01/31/23 01/31/23 History Allergies Allergy/AdvReac Type Severity Reaction Status Date / Time amoxicillin Allergy Rash/Hives Verified 01/31/23 17:35 ibuprofen Allergy Rash/Hives/ Verified 01/31/23 17:35 ulcer Penicillins Allergy Rash/Hives Verified 01/31/23 17:35 Physical Exam Vitals: Vital Signs Temp Pulse Pulse Pulse Resp BP BP 02/01/23 08:00 68 62 18 02/01/23 07:22 98.0 F 68 18 107/67 02/01/23 01:38 97.6 F 62 18 101/64 01/31/23 21:49 98.0 F 65 20 103/64 01/31/23 19:50 98.4 F 68 16 130/76 01/31/23 16:29 98.3 F 66 18 123/90 Pulse Ox 02/01/23 08:00 02/01/23 07:22 96 02/01/23 01:38 94 L 01/31/23 21:49 95 01/31/23 19:50 98 01/31/23 16:29 95 Intake and Output 01/31/23 02/01/23 02/01/23 22:59 06:59 14:59 Intake Total 1080 Output Total 700 Balance 380 Intake: Intake, IV Titration 600 Amount Sodium Chloride 0.9% 1, 600 000 ml @ 75 mls/hr IV . [id number] [facility] Rx#:[id number] Oral 480 Output: Urine 700 Other: # Voids 2 Weight 113.398 kg Results CBC & Chem 7: 01/31/23 18:03 01/31/23 18:03 Labs: Abnormal Lab Results - Last 24 Hours (Table) 01/31/23 01/31/23 Range/Units 18:03 18:03 Sodium 134 L (137-145) mmol/L Glucose 101 H (74-99) mg/dL Urine Appearance Turbid H (Clear) Urine Protein 1+ H (Negative) Urine Blood Moderate H (Negative) Urine Nitrite Positive H (Negative) Ur Leukocyte Esterase Large H (Negative) Urine RBC 143 H (0-5) /hpf Urine WBC >182 H (0-5) /hpf Urine WBC Clumps Many H (None) /hpf Urine Bacteria Moderate H (None) /hpf Urine Mucus Few H (None) /hpf Microbiology - Last 24 Hours (Table) 01/31/23 20:53 Urine Culture - Preliminary Urine,Clean Catch Thrombosis Risk Factor Assmnt - Choose All That Apply Any of the Below Risk Factors Present?: Yes Each Factor Represents 1 point: Obesity (BMI >25) Other Risk Factors: Yes Each Risk Factor Represents 3 Points: Age 75 years or older Other congenital or acquired thrombophilia - If yes, enter type in comment: No Thrombosis Risk Factor Assessment Total Risk Factor Score: 4 Thrombosis Risk Factor Assessment Level: Moderate Risk Assessment and Plan Time with Patient: Less than 30
[2023-02-02] MEDS: SODIUM CHLORIDE 0.9% 1,000 ML IV SCH ×2 (00:13→20:34)
[2023-02-02] MEDS: PANTOPRAZOLE 40 MG TABLET PO SCH (07:28)
[2023-02-02] MEDS: traMADol 50 MG TAB PO PRN ×2 (08:03→20:34)
[2023-02-02] MEDS: ENOXAPARIN 40 MG/0.4 ML SYRINGE SQ SCH (14:18)
--- NOTE | 2023-02-02 15:18 | P.PN ---
Subjective Progress Note Date: 02/02/23 This is a 78 year old female with medical history of hypertension, arthritis. Patient has recently underwent a abdominal hernia repair one month ago and discharged to subacute rehab. Patient had been discharged from rehab and has been at home since Tuesday. Patient reports being unable to lift herself up out of bed and has been primary bedrest since returning home. Reports weakness. Patient has urinary incontinence but did have an incident of bowel incontinence overnight on Tuesday which was an isolated incident. Patient required assistance at home to perform ADLs. Denies any fever/chills, no dysuria, urgency, or frequency. Denying abdominal pain, denying shortness of breath and no chest pain. Patient denies any nausea or vomiting. Came to the for further evaluation and initial work up reveals abnormal urine with positive nitrates, large leukocyte esterase and >182 WBCs. Patient is admitted for urinary tract infection and has been started on IV ceftriaxone. Patient is being hydrated. Patient has remained afebrile and there is no elevated white count on admission. Physical therapy will be consulted patient will likely require subacute rehab on discharge. 02/02/2023 Patient is evaluated today resting in bed. Patient is pending insurance auth for discharge back to subacute rehab. Currently being treated with IV ceftriaxone. Urine culture is showing gram negative bacilli with greater than 100,000 colony count. Pending finalized culture at this time. Patient reports significant weak ness in the lower extremities and lower back pain which is chronic for her. Has been having issues with urinary retention since the abdominal surgery. Patient did have lumbar MRI back in 2016 showing levoscoliosis with severe multilevel degenerative disease at all levels of the lumbar spine, multilevel foraminal encroachment with other findings in surgical report. Patient denies history of surgical intervention. Patient is being followed by PT and OT. Review of Systems Constitutional: Denied any fatigue denied any fever. Cardio vascular: denied any chest pain, palpitations Gastrointestinal: denied any nausea, vomiting, diarrhea Pulmonary: Denied any shortness of breath cough Neurologic denied any new focal deficits reports lower extremity weakness. All inpatient medications were reviewed and appropriate changes in these medications as dictated in the interval history and assessment and plan. PHYSICAL EXAMINATION: GENERAL: The patient is alert and oriented x3, not in any acute distress. Well developed, well nourished. Fatigued HEENT: Pupils are round and equally reacting to light. EOMI. No scleral icterus. No conjunctival pallor. Normocephalic, atraumatic. No pharyngeal erythema. No thyromegaly. CARDIOVASCULAR: S1 and S2 present. No murmurs, rubs, or gallops. PULMONARY: Chest is clear to auscultation, no wheezing or crackles. ABDOMEN: Soft, nontender, nondistended, normoactive bowel sounds. No palpable organomegaly. MUSCULOSKELETAL: No joint swelling or deformity. EXTREMITIES: No cyanosis, clubbing, or pedal edema. NEUROLOGICAL: Gross neurological examination did not reveal any focal deficits. Generalized weakness with no focal deficits. SKIN: No rashes. Assessment and plan Assessment Generalized weakness Chronic back pain Acute Urinary tract infection present on admission, patient has been afebrile and no leukocytosis History of hypertension History of rheumoatoid arthritis Hyponatremia, hypovolemic expected to improve with IV fluids Recent abdominal hernia repair GI prophylaxis DVT prophylaxis Plan Continue IV fluids Continue IV ceftriaxone and follow up urine cultures Recommending holding home blood pressure medication Repeat BMP in the AM PT/OT consultation in place patient will require subacute rehab on discharge The impression and plan of care has been dictated by Rosa Mcmillan Nurse Practitioner as directed. Dr. Ambika MD I have performed a history and physical examination and medical decision making of this patient, discussed the same with the dictator, and agree with the dictators assessment and plan as written, documented as a scribe. Based on total visit time, I have performed more than 50% of this visit. Objective - Vital Signs Vital signs: Vital Signs Temp 97.6 F 02/02/23 14:15 Pulse 64 02/02/23 14:15 Resp 19 02/02/23 14:15 BP 114/76 02/02/23 14:15 Pulse Ox 95 02/02/23 14:15 FiO2 Intake & Output 02/01/23 02/02/23 02/02/23 18:59 06:59 18:59 Output Total 325 100 350 Balance -325 -100 -350 Output: Urine 325 100 350 Other: Voiding Method Toilet Toilet # Voids 1 - Labs CBC & Chem 7: 01/31/23 18:03 01/31/23 18:03 Labs: Microbiology - Last 24 Hours (Table) 01/31/23 20:30 Blood Culture - Preliminary Blood 01/31/23 20:45 Blood Culture - Preliminary Blood 01/31/23 20:53 Urine Culture - Preliminary Urine,Clean Catch Gram Neg Bacilli Assessment and Plan Time with Patient: Less than 30
[2023-02-02] MEDS ORDERED: LACTULOSE 20 GM/30 ML CUP PO PRN ×2 (21:22→21:27)
[2023-02-03] MEDS: traMADol 50 MG TAB PO PRN ×2 (05:33→21:30)
[2023-02-03] MEDS: PANTOPRAZOLE 40 MG TABLET PO SCH (05:33)
[2023-02-03] MEDS: ENOXAPARIN 40 MG/0.4 ML SYRINGE SQ SCH (08:29)
[2023-02-03 11:55] LABS: African American GFR (CKD) >90 (>60 ml/min/1.73 sqM); Anion Gap 9 mmol/L; Blood Urea Nitrogen 9 mg/dL (7-17); Calcium 8.6 mg/dL (8.4-10.2); Carbon Dioxide 23 mmol/L (22-30); Chloride 106 mmol/L (98-107); Glucose 101 mg/dL (74-99); Non-African American GFR(CKD) >90 (>60 ml/min/1.73 sqM); Potassium 3.7 mmol/L (3.5-5.1); Sodium 138 mmol/L (137-145)
--- NOTE | 2023-02-03 14:04 | P.DS ---
Providers Date of admission: 01/31/23 20:14 Attending physician: Terrence Grover MD Primary care physician: Yajaira Frost Hospital Course: Final Diagnosis Generalized weakness Chronic back pain Acute Urinary tract infection present on admission, patient has been afebrile and no leukocytosis History of hypertension History of rheumoatoid arthritis Hyponatremia, hypovolemic expected to improve with IV fluids Recent abdominal hernia repair Urinary Incontinence Discharge Disposition Patient is stable for discharge. Urine culture finalized and showing E.Coli which was pansensitive and patient had received 4 days of IV ceftriaxone while inpatient. A second organism vancomycin sensitive enterococcus faecalis was identified with resistence to ampicillin and patient does have a pencillin allergy. Patient will be discharged on short course of oral zyvox to complete antibiotic therapy and provide coverage of the enterococcus. Clinically she has improved and reports less weakness. Patient will be discharge to subacute rehab today. Repeat labs in 2 to 3 days. Recommend to see PCP in 1 to 2 days. Follow up with orthopedics on discharge. Hospital Course This is a 78 year old female with medical history of hypertension, arthritis. Patient has recently underwent a abdominal hernia repair one month ago and discharged to subacute rehab. Patient had been discharged from rehab and has been at home since Tuesday. Patient reports being unable to lift herself up out of bed and has been primary bedrest since returning home. Reports weakness. Patient has urinary incontinence but did have an incident of bowel incontinence overnight on Tuesday which was an isolated incident. Patient required assistance at home to perform ADLs. Denies any fever/chills, no dysuria, urgency, or frequency. Denying abdominal pain, denying shortness of breath and no chest pain. Patient denies any nausea or vomiting. Came to the for further evaluation and initial work up reveals abnormal urine with positive nitrates, large leukocyte esterase and >182 WBCs. Patient is admitted for urinary tract infection and has been started on IV ceftriaxone. Patient is being hydrated. Patient has remained afebrile and there is no elevated white count on admission. Urine culture finalized and showing E.Coli which was pansensitive and patient had received 4 days of IV ceftriaxone while inpatient. A second organism vancomycin sensitive enterococcus faecalis was identified with resistence to ampicillin and patient does have a pencillin allergy. Patient will be discharged on short course of oral zyvox to complete antibiotic therapy and provide coverage of the enterococcus. Physical therapy will be consulted patient does require subacute rehab on discharge. Patient does have history of chronic back pain and has followed with an orthopedic surgeon out in [place] states that at that time it was felt her degenerative did not require surgical intervention at that time. Reviewed prior MRI in this system dated back in back in 2015 showing levoscoliosis with severe multilevel degenerative disease at all levels of the lumbar spine, multilevel foraminal encroachment with other findings in surgical report. Disussed with patient following up with orthopedics on discharge and patient verbalizes agreement. No shortness of breath no chest pain. No urinary retention, no dyusria. No nausea, vomiting or diarrhea. Patient is alert x 3 focal neurological exam is negative patient has diffuse weakness. Patient is up in the chair today. Lung are clear, S1 S2 auscultated. Abdomen soft and nontender. Patient will be discharged to subacute rehab. Hemodynamically stable. Please see medication reconciliation for a list of current medication. Thank you for allowing us to participate in the care of this patient. The impression and plan of care has been dictated by Rosa Mcmillan, Nurse Practitioner as directed. Dr. Ambika MD I have performed a history and physical examination and medical decision making of this patient, discussed the same with the dictator, and agree with the dictators assessment and plan as written, documented as a scribe. Based on total visit time, I have performed more than 50% of this visit. Patient Condition at Discharge: Stable Plan - Discharge Summary Discharge Rx Participant: No New Discharge Prescriptions: New Lactulose [Cephulac] 20 gm PO BID PRN ml PRN Reason: Constipation Pantoprazole [Protonix] 40 mg PO AC-BRKFST #0 tab Linezolid [Zyvox] 600 mg PO Q12H 5 Days #10 tab Continue Diclofenac Sodium Gel [Voltaren Gel] 4 gm TOPICAL Q6H PRN PRN Reason: Pain Lisinopril-Hctz 20-25 mg [Zestoretic 20-25] 1 tab PO DAILY Potassium Chloride ER [K-Dur 10] 10 meq PO DAILY traMADol HCL 50 mg PO Q8H PRN #4 tab PRN Reason: Pain Discharge Medication List Lisinopril-Hctz 20-25 mg [Zestoretic 20-25] 1 tab PO DAILY 06/16/21 [History] Diclofenac Sodium Gel [Voltaren Gel] 4 gm TOPICAL Q6H PRN 01/31/23 [History] Potassium Chloride ER [K-Dur 10] 10 meq PO DAILY 01/31/23 [History] Lactulose [Cephulac] 20 gm PO BID PRN ml 02/03/23 [Rx] Linezolid [Zyvox] 600 mg PO Q12H 5 Days #10 tab 02/03/23 [Rx] Pantoprazole [Protonix] 40 mg PO AC-BRKFST #0 tab 02/03/23 [Rx] traMADol HCL 50 mg PO Q8H PRN #4 tab 02/03/23 [Rx] Follow up Appointment(s)/Referral(s): Porsha Reynolds MD [STAFF PHYSICIAN] - As Needed Yajaira Frost MD [Primary Care Provider] - 1-2 days Ambulatory/Diagnostic Orders: Basic Metabolic Panel [LAB.AMB] Time Frame: 3 Days, Location: None Selected Activity/Diet/Wound Care/Special Instructions: Continue oral zyvox twice a day for 5 days for the urinary tract infection Repeat labs in 2 to 3 days Discharge Disposition: TRANSFER TO SNF/ECF
[2023-02-04] MEDS: PANTOPRAZOLE 40 MG TABLET PO SCH (05:23)
[2023-02-04] MEDS: SODIUM CHLORIDE 0.9% 1,000 ML IV SCH (06:57)
[2023-02-04] MEDS: ENOXAPARIN 40 MG/0.4 ML SYRINGE SQ SCH (09:28)
[2023-02-04] MEDS: traMADol 50 MG TAB PO PRN ×2 (09:30→18:56)
--- NOTE | 2023-02-04 16:36 | P.PN ---
Subjective Progress Note Date: 02/04/23 This is a 78 year old female with medical history of hypertension, arthritis. Patient has recently underwent a abdominal hernia repair one month ago and discharged to subacute rehab. Patient had been discharged from rehab and has been at home since Tuesday. Patient reports being unable to lift herself up out of bed and has been primary bedrest since returning home. Reports weakness. Patient has urinary incontinence but did have an incident of bowel incontinence overnight on Tuesday which was an isolated incident. Patient required assistance at home to perform ADLs. Denies any fever/chills, no dysuria, urgency, or frequency. Denying abdominal pain, denying shortness of breath and no chest pain. Patient denies any nausea or vomiting. Came to the for further evaluation and initial work up reveals abnormal urine with positive nitrates, large leukocyte esterase and >182 WBCs. Patient is admitted for urinary tract infection and has been started on IV ceftriaxone. Patient is being hydrated. Patient has remained afebrile and there is no elevated white count on admission. Physical therapy will be consulted patient will likely require subacute rehab on discharge. 02/02/2023 Patient is evaluated today resting in bed. Patient is pending insurance auth for discharge back to subacute rehab. Currently being treated with IV ceftriaxone. Urine culture is showing gram negative bacilli with greater than 100,000 colony count. Pending finalized culture at this time. Patient reports significant weak ness in the lower extremities and lower back pain which is chronic for her. Has been having issues with urinary retention since the abdominal surgery. Patient did have lumbar MRI back in 2016 showing levoscoliosis with severe multilevel degenerative disease at all levels of the lumbar spine, multilevel foraminal encroachment with other findings in surgical report. Patient denies history of surgical intervention. Patient is being followed by PT and OT. 02/04/2023 Patient has been evaluated today on the medical floor. Patient was denied for discharged to [facility] peer to peer was completed. Patient will remain and an appeal in place patient would benefit from sub acute rehab prior to returning home to increase mobility and functionality. Patient continued on IV ceftriaxone for 1 more day. Patient is resumed on voltaren gel. Lumbar xray will be taken. Review of Systems Constitutional: Denied any fatigue denied any fever. Cardio vascular: denied any chest pain, palpitations Gastrointestinal: denied any nausea, vomiting, diarrhea Pulmonary: Denied any shortness of breath cough Neurologic denied any new focal deficits reports lower extremity weakness. All inpatient medications were reviewed and appropriate changes in these medications as dictated in the interval history and assessment and plan. PHYSICAL EXAMINATION: GENERAL: The patient is alert and oriented x3, not in any acute distress. Well developed, well nourished. Fatigued HEENT: Pupils are round and equally reacting to light. EOMI. No scleral icterus. No conjunctival pallor. Normocephalic, atraumatic. No pharyngeal erythema. No thyromegaly. CARDIOVASCULAR: S1 and S2 present. No murmurs, rubs, or gallops. PULMONARY: Chest is clear to auscultation, no wheezing or crackles. ABDOMEN: Soft, nontender, nondistended, normoactive bowel sounds. No palpable organomegaly. MUSCULOSKELETAL: No joint swelling or deformity. EXTREMITIES: No cyanosis, clubbing, or pedal edema. NEUROLOGICAL: Gross neurological examination did not reveal any focal deficits. Generalized weakness with no focal deficits. SKIN: No rashes. Assessment and plan Assessment Generalized weakness Chronic back pain with severe degenerative disc disease Acute Urinary tract infection present on admission, patient has been afebrile and no leukocytosis History of hypertension History of rheumoatoid arthritis Hyponatremia, hypovolemic improved Recent abdominal hernia repair Urinary retention Obesity GI prophylaxis DVT prophylaxis Plan Continue IV ceftriaxone for 1 more day Lisinopril resumed Lumbar xray f/u prior imaging with known prior degenerative disc disease Denied for CHERELLE and appeal is in place The impression and plan of care has been dictated by Rosa Mcmillan, Nurse Practitioner as directed. Dr. Ambika MD I have performed a history and physical examination and medical decision making of this patient, discussed the same with the dictator, and agree with the dictators assessment and plan as written, documented as a scribe. Based on total visit time, I have performed more than 50% of this visit. Objective - Vital Signs Vital signs: Vital Signs Temp 98.5 F 02/04/23 14:07 Pulse 68 02/04/23 14:07 Resp 16 02/04/23 14:07 BP 130/67 02/04/23 14:07 Pulse Ox 97 02/04/23 14:07 FiO2 Intake & Output 02/03/23 02/04/23 02/04/23 18:59 06:59 18:59 Intake Total 600 Output Total 1250 Balance -1250 600 Intake: Intake, IV Titration 600 Amount Sodium Chloride 0.9% 1, 600 000 ml @ 75 mls/hr IV . [id number] Rx#:[id number] Output: Urine 1250 Other: Voiding Method Toilet # Voids 2 # Bowel Movements 1 - Labs CBC & Chem 7: 01/31/23 18:03 02/03/23 11:24 Labs: Microbiology - Last 24 Hours (Table) 01/31/23 20:30 Blood Culture - Preliminary Blood 01/31/23 20:45 Blood Culture - Preliminary Blood Assessment and Plan Time with Patient: Less than 30
[2023-02-04] MEDS: lisinopriL 20 MG TAB PO SCH (17:56)
--- NOTE | 2023-02-04 17:56 | XR ---
EXAMINATION TYPE: XR lumbar spine 2 or 3V DATE OF EXAM: 02/04/2023 5:20 PM INDICATION: Patient age:Female; 78 years old; Reason for study: lower back pain with radiculopathy; COMPARISON: CT 01/01/2023 TECHNIQUE: Frontal and lateral views of the spine. FINDINGS: Moderate to severe degeneration changes with levoscoliosis apex T12-L1. There is disc space narrowing and vertebral body osteophyte formation throughout the visualized spine. There is increase d lordosis of the spine. Facet joint arthropathy is seen throughout the spine. No definitive evidence of fracture. IMPRESSION: Moderate to severe multilevel disc degeneration changes with levoscoliosis.
[2023-02-05] MEDS: PANTOPRAZOLE 40 MG TABLET PO SCH (06:12)
[2023-02-05] MEDS: traMADol 50 MG TAB PO PRN ×2 (09:06→16:17)
[2023-02-05] MEDS: ENOXAPARIN 40 MG/0.4 ML SYRINGE SQ SCH (09:06)
[2023-02-05] MEDS: DICLOFENAC SODIUM GEL 100 GM TUBE TOPICAL PRN (09:07)
[2023-02-05] MEDS: lisinopriL 20 MG TAB PO SCH (09:07)
--- NOTE | 2023-02-05 10:16 | P.PN ---
Subjective Progress Note Date: 02/05/23 This is a 78 year old female with medical history of hypertension, arthritis. Patient has recently underwent a abdominal hernia repair one month ago and discharged to subacute rehab. Patient had been discharged from rehab and has been at home since Tuesday. Patient reports being unable to lift herself up out of bed and has been primary bedrest since returning home. Reports weakness. Patient has urinary incontinence but did have an incident of bowel incontinence overnight on Tuesday which was an isolated incident. Patient required assistance at home to perform ADLs. Denies any fever/chills, no dysuria, urgency, or frequency. Denying abdominal pain, denying shortness of breath and no chest pain. Patient denies any nausea or vomiting. Came to the for further evaluation and initial work up reveals abnormal urine with positive nitrates, large leukocyte esterase and >182 WBCs. Patient is admitted for urinary tract infection and has been started on IV ceftriaxone. Patient is being hydrated. Patient has remained afebrile and there is no elevated white count on admission. Physical therapy will be consulted patient will likely require subacute rehab on discharge. 02/02/2023 Patient is evaluated today resting in bed. Patient is pending insurance auth for discharge back to subacute rehab. Currently being treated with IV ceftriaxone. Urine culture is showing gram negative bacilli with greater than 100,000 colony count. Pending finalized culture at this time. Patient reports significant weak ness in the lower extremities and lower back pain which is chronic for her. Has been having issues with urinary retention since the abdominal surgery. Patient did have lumbar MRI back in 2016 showing levoscoliosis with severe multilevel degenerative disease at all levels of the lumbar spine, multilevel foraminal encroachment with other findings in surgical report. Patient denies history of surgical intervention. Patient is being followed by PT and OT. 02/04/2023 Patient has been evaluated today on the medical floor. Patient was denied for discharged to [facility] peer to peer was completed. Patient will remain and an appeal in place patient would benefit from sub acute rehab prior to returning home to increase mobility and functionality. Patient continued on IV ceftriaxone for 1 more day. Patient is resumed on voltaren gel. Lumbar xray will be taken. 02/05/2023 Patient remains on the medical floor, pending insurance appeal for rehabilitation. Patient had lumbar xray taken showing moderate to severe multilevel disc degeneration changes with levoscoliosis no evidence of stenosis noted. Patient started on voltaren gel for the back and left knee arthritic pain. Blood pressure 128/67. Review of Systems Constitutional: Denied any fatigue denied any fever. Cardio vascular: denied any chest pain, palpitations Gastrointestinal: denied any nausea, vomiting, diarrhea Pulmonary: Denied any shortness of breath cough Neurologic denied any new focal deficits reports lower extremity weakness. All inpatient medications were reviewed and appropriate changes in these medications as dictated in the interval history and assessment and plan. PHYSICAL EXAMINATION: GENERAL: The patient is alert and oriented x3, not in any acute distress. Well developed, well nourished. Fatigued HEENT: Pupils are round and equally reacting to light. EOMI. No scleral icterus. No conjunctival pallor. Normocephalic, atraumatic. No pharyngeal erythema. No thyromegaly. CARDIOVASCULAR: S1 and S2 present. No murmurs, rubs, or gallops. PULMONARY: Chest is clear to auscultation, no wheezing or crackles. ABDOMEN: Soft, nontender, nondistended, normoactive bowel sounds. No palpable organomegaly. MUSCULOSKELETAL: No joint swelling or deformity. EXTREMITIES: No cyanosis, clubbing, or pedal edema. NEUROLOGICAL: Gross neurological examination did not reveal any focal deficits. Generalized weakness with no focal deficits. SKIN: No rashes. Assessment and plan Assessment Generalized weakness Chronic back pain with severe degenerative disc disease Acute Urinary tract infection present on admission, patient has been afebrile and no leukocytosis History of hypertension History of rheumoatoid arthritis Hyponatremia, hypovolemic improved Recent abdominal hernia repair Urinary incontinence Obesity GI prophylaxis DVT prophylaxis Plan Lisinopril resumed Started on voltaren gel for the back pain recommend orthopedic follow up on discharge Denied for CHERELLE and appeal is in place, possible CHERELLE on tuesday. The impression and plan of care has been dictated by Rosa Mcmillan, Nurse Practitioner as directed. Dr. Shun MD I have performed a history and physical examination and medical decision making of this patient, discussed the same with the dictator, and agree with the dictators assessment and plan as written, documented as a scribe. Based on total visit time, I have performed more than 50% of this visit. Objective - Vital Signs Vital signs: Vital Signs Temp 98.4 F 02/05/23 08:00 Pulse 65 02/05/23 08:00 Resp 18 02/05/23 08:00 BP 128/67 02/05/23 08:00 Pulse Ox 95 02/05/23 08:00 FiO2 Intake & Output 02/04/23 02/05/23 02/05/23 18:59 06:59 18:59 Intake Total 600 Output Total 1100 Balance 600 -1100 Intake: Intake, IV Titration 600 Amount Sodium Chloride 0.9% 1, 600 000 ml @ 75 mls/hr IV . [id number] [facility] Rx#:[id number] Output: Urine 1100 Other: Voiding Method External Catheter External Catheter - Labs CBC & Chem 7: 01/31/23 18:03 02/03/23 11:24 Labs: Microbiology - Last 24 Hours (Table) 01/31/23 20:30 Blood Culture - Preliminary Blood 01/31/23 20:45 Blood Culture - Preliminary Blood Assessment and Plan Time with Patient: Less than 30
[2023-02-05 14:22] VITALS: BMI 40.3
[2023-02-06] MEDS: traMADol 50 MG TAB PO PRN ×2 (01:06→07:51)
[2023-02-06] MEDS: PANTOPRAZOLE 40 MG TABLET PO SCH (06:49)
[2023-02-06] MEDS ORDERED: METHYL SALICYLATE-MENTHOL OINT (3 OZ TUBE) TOPICAL PRN (07:07)
[2023-02-06] MEDS: lisinopriL 20 MG TAB PO SCH (07:42)
[2023-02-06] MEDS: ENOXAPARIN 40 MG/0.4 ML SYRINGE SQ SCH (07:46)
--- NOTE | 2023-02-06 09:24 | P.PN ---
Subjective Progress Note Date: 02/06/23 This is a 78 year old female with medical history of hypertension, arthritis. Patient has recently underwent a abdominal hernia repair one month ago and discharged to subacute rehab. Patient had been discharged from rehab and has been at home since Tuesday. Patient reports being unable to lift herself up out of bed and has been primary bedrest since returning home. Reports weakness. Patient has urinary incontinence but did have an incident of bowel incontinence overnight on Tuesday which was an isolated incident. Patient required assistance at home to perform ADLs. Denies any fever/chills, no dysuria, urgency, or frequency. Denying abdominal pain, denying shortness of breath and no chest pain. Patient denies any nausea or vomiting. Came to the for further evaluation and initial work up reveals abnormal urine with positive nitrates, large leukocyte esterase and >182 WBCs. Patient is admitted for urinary tract infection and has been started on IV ceftriaxone. Patient is being hydrated. Patient has remained afebrile and there is no elevated white count on admission. Physical therapy will be consulted patient will likely require subacute rehab on discharge. 02/02/2023 Patient is evaluated today resting in bed. Patient is pending insurance auth for discharge back to subacute rehab. Currently being treated with IV ceftriaxone. Urine culture is showing gram negative bacilli with greater than 100,000 colony count. Pending finalized culture at this time. Patient reports significant weak ness in the lower extremities and lower back pain which is chronic for her. Has been having issues with urinary retention since the abdominal surgery. Patient did have lumbar MRI back in 2016 showing levoscoliosis with severe multilevel degenerative disease at all levels of the lumbar spine, multilevel foraminal encroachment with other findings in surgical report. Patient denies history of surgical intervention. Patient is being followed by PT and OT. 02/04/2023 Patient has been evaluated today on the medical floor. Patient was denied for discharged to [facility] peer to peer was completed. Patient will remain and an appeal in place patient would benefit from sub acute rehab prior to returning home to increase mobility and functionality. Patient continued on IV ceftriaxone for 1 more day. Patient is resumed on voltaren gel. Lumbar xray will be taken. 02/05/2023 Patient remains on the medical floor, pending insurance appeal for rehabilitation. Patient had lumbar xray taken showing moderate to severe multilevel disc degeneration changes with levoscoliosis no evidence of stenosis noted. Patient started on voltaren gel for the back and left knee arthritic pain. Blood pressure 128/67. 02/06/2023 Patient remains on the medical floor patient is pending insurance authorization for discharge to subacute rehab. PT/OT following. Patient has completed course of IV ceftriaxone while inpatient. On pain and bowel regimen for the arthritis. Hemodynamically stable. Review of Systems Constitutional: Denied any fatigue denied any fever. Cardio vascular: denied any chest pain, palpitations Gastrointestinal: denied any nausea, vomiting, diarrhea Pulmonary: Denied any shortness of breath cough Neurologic denied any new focal deficits reports lower extremity weakness. All inpatient medications were reviewed and appropriate changes in these medications as dictated in the interval history and assessment and plan. PHYSICAL EXAMINATION: GENERAL: The patient is alert and oriented x3, not in any acute distress. Well developed, well nourished. Fatigued HEENT: Pupils are round and equally reacting to light. EOMI. No scleral icterus. No conjunctival pallor. Normocephalic, atraumatic. No pharyngeal erythema. No thyromegaly. CARDIOVASCULAR: S1 and S2 present. No murmurs, rubs, or gallops. PULMONARY: Chest is clear to auscultation, no wheezing or crackles. ABDOMEN: Soft, nontender, nondistended, normoactive bowel sounds. No palpable organomegaly. MUSCULOSKELETAL: No joint swelling or deformity. EXTREMITIES: No cyanosis, clubbing, or pedal edema. NEUROLOGICAL: Gross neurological examination did not reveal any focal deficits. Generalized weakness with no focal deficits. SKIN: No rashes. Assessment and plan Assessment Generalized weakness Chronic back pain with severe degenerative disc disease Acute Urinary tract infection present on admission, patient has been afebrile and no leukocytosis History of hypertension History of rheumoatoid arthritis Hyponatremia, hypovolemic improved Recent abdominal hernia repair Urinary incontinence Obesity GI prophylaxis DVT prophylaxis Plan Lisinopril resumed Started on voltaren gel for the back pain recommend orthopedic follow up on discharge Denied for CHERELLE and appeal is in place, possible CHERELLE on tuesday. The impression and plan of care has been dictated by Nurse Ray Culp ctitioner as directed. Dr. Shun MD I have performed a history and physical examination and medical decision making of this patient, discussed the same with the dictator, and agree with the dictators assessment and plan as written, documented as a scribe. Based on total visit time, I have performed more than 50% of this visit. Objective - Vital Signs Vital signs: Vital Signs Temp 99.1 F 02/06/23 07:06 Pulse 63 02/06/23 07:06 Resp 18 02/06/23 07:06 BP 106/63 02/06/23 07:06 Pulse Ox 95 02/06/23 07:06 FiO2 Intake & Output 02/05/23 02/06/23 02/06/23 18:59 06:59 18:59 Intake Total 650 Output Total 700 Balance -50 Weight 113.398 kg Intake: Intake, IV Titration 650 Amount Sodium Chloride 0.9% 1, 600 000 ml @ 75 mls/hr IV . [id number] [facility] Rx#:[id number] cefTRIAXone 1 gm In 50 Sodium Chloride 0.9% 50 ml @ 100 mls/hr IVPB Q12HR [facility] Rx#:[id number] Output: Urine 700 Other: Voiding Method External Catheter # Voids 1 - Labs CBC & Chem 7: 01/31/23 18:03 02/03/23 11:24 Labs: Microbiology - Last 24 Hours (Table) 01/31/23 20:30 Blood Culture - Preliminary Blood 01/31/23 20:45 Blood Culture - Preliminary Blood Assessment and Plan Time with Patient: Less than 30
[2023-02-06] MEDS: DICLOFENAC SODIUM GEL 100 GM TUBE TOPICAL PRN (11:42)
[2023-02-06] MEDS: HYDROcodone/APAP 5-325MG 1 EACH TAB PO PRN (11:42)
[2023-02-07 01:49] VITALS: RESP 16
[2023-02-07] MEDS: HYDROcodone/APAP 5-325MG 1 EACH TAB PO PRN (05:31)
[2023-02-07] MEDS: PANTOPRAZOLE 40 MG TABLET PO SCH (05:32)
[2023-02-07 08:26] VITALS: BP 122/77; PULSE 68; TEMP 98.6
[2023-02-07] MEDS: ENOXAPARIN 40 MG/0.4 ML SYRINGE SQ SCH (10:23)
[2023-02-07] MEDS: lisinopriL 20 MG TAB PO SCH (10:24)
--- NOTE | 2023-02-07 10:59 | P.DS ---
Providers Date of admission: 01/31/23 20:14 Attending physician: Terrence Grover MD Primary care physician: Yajaira Santosh [facility] Course: Final diagnosis Acute UTI present on admission Chronic back pain DJD Generalized weakness Hypertension Rheumatoid arthritis Hyponatremia Urinary incontinence Multiple Compass medical issues History of present illness This patient with the multiple Compass medical issues admitted with the weakness and debility and as well as a UTI. Patient was treated with a short course of antibiotics. Patient improved significantly. He ECF is being arranged at this time. PO2 when necessary has been done. There is no history of any fever or chills at this time. On exam vitals are stable cardio system normal abdomen soft no system diffusely weak Please refer to the medication reconciliation sheet soreness to medications. Please refer to the other progress notes and consultations for further details. Patient Condition at Discharge: Stable Plan - Discharge Summary Discharge Rx Participant: No New Discharge Prescriptions: New Lactulose [Cephulac] 20 gm PO BID PRN ml PRN Reason: Constipation Pantoprazole [Protonix] 40 mg PO AC-BRKFST #0 tab Linezolid [Zyvox] 600 mg PO Q12H 5 Days #10 tab Continue Diclofenac Sodium Gel [Voltaren Gel] 4 gm TOPICAL Q6H PRN PRN Reason: Pain Lisinopril-Hctz 20-25 mg [Zestoretic 20-25] 1 tab PO DAILY Potassium Chloride ER [K-Dur 10] 10 meq PO DAILY traMADol HCL 50 mg PO Q8H PRN #4 tab PRN Reason: Pain Discharge Medication List Lisinopril-Hctz 20-25 mg [Zestoretic 20-25] 1 tab PO DAILY 06/16/21 [History] Diclofenac Sodium Gel [Voltaren Gel] 4 gm TOPICAL Q6H PRN 01/31/23 [History] Potassium Chloride ER [K-Dur 10] 10 meq PO DAILY 01/31/23 [History] Lactulose [Cephulac] 20 gm PO BID PRN ml 02/03/23 [Rx] Linezolid [Zyvox] 600 mg PO Q12H 5 Days #10 tab 02/03/23 [Rx] Pantoprazole [Protonix] 40 mg PO AC-BRKFST #0 tab 02/03/23 [Rx] traMADol HCL 50 mg PO Q8H PRN #4 tab 02/03/23 [Rx] Follow up Appointment(s)/Referral(s): Param Zuniga MD [STAFF PHYSICIAN] - 1 Week Porsha Reynolds MD [STAFF PHYSICIAN] - As Needed Jose Rafael Jackson MD [Medical Doctor] - 1 Week Yajaira Frost MD [Primary Care Provider] - 1-2 days Ambulatory/Diagnostic Orders: Basic Metabolic Panel [LAB.AMB] Time Frame: 3 Days, Location: None Selected Activity/Diet/Wound Care/Special Instructions: Continue oral zyvox twice a day for 5 days for the urinary tract infection Repeat labs in 2 to 3 days
== END 2023-02-07 14:12 ==
LOC: EC 16:27 → INTOOBSV 20:14 → 4SSUR 20:14 → OBSVTOIN 20:14 → 4SSUR 20:42 → UNDODISIN 02-07 14:12
PROVIDERS: ADMIT Internal Medicine; ATTEND Internal Medicine
DX: N39.0 Urinary tract infection, site not specified (principal); R53.1 Weakness; M51.36 Other intervertebral disc degeneration, lumbar region; M25.78 Osteophyte, vertebrae; M41.85 Other forms of scoliosis, thoracolumbar region; E87.1 Hypo-osmolality and hyponatremia; E86.1 Hypovolemia; I11.9 Hypertensive heart disease without heart failure; M06.9 Rheumatoid arthritis, unspecified; B96.20 Unspecified Escherichia coli [E. coli] as the cause of diseases classified elsewhere; B95.2 Enterococcus as the cause of diseases classified elsewhere; E66.9 Obesity, unspecified; Z79.899 Other long term (current) drug therapy; Z88.0 Allergy status to penicillin; Z88.8 Allergy status to other drugs, medicaments and biological substances; Z98.42 Cataract extraction status, left eye; Z98.41 Cataract extraction status, right eye; Z96.1 Presence of intraocular lens; Z96.653 Presence of artificial knee joint, bilateral; Z87.891 Personal history of nicotine dependence; Z68.41 Body mass index [BMI] 40.0-44.9, adult
CPT/HCPCS: 96361 ×5; 96365; 96366 ×5; 96372 ×6; 99285; 36415; 93005; 97116 ×2; 97162; 97530 ×2; 97535; 97166; 84439; 84481; 80053; 80048; 83605; 83735; 84443; 84484; 85025; 85610; 85730; 81001; 87040; 87086; 87077; 87186; 72100; 71046; G0378 ×8; J1650 ×6; J0696 ×6; 96374